=== PATIENT | male | born 1945 | race Caucasian/White ===

== ENCOUNTER 2018-02-20 19:01 | Emergency (ER) | payer MEDICARE, OTHER, SELFPAY ==
[2018-02-20 19:28] VITALS: BP 135/85; PULSE 61; RESP 16; TEMP 36.4; O2SAT 99
--- NOTE | 2018-02-20 20:09 | PC.NURSE ---
rt eye poked with stick while walking, lower rt FB that reports she tried to remove prior to arrival states it won't budge, globe intact, eye red/irritated
--- NOTE | 2018-02-20 20:24 | ED.EYEPROB ---
HPI - Eye Problem General Chief complaint: Eye Problems Stated complaint: FORIEGN OBJECT IN RIGHT EYE Time Seen by Provider: 02/20/18 20:02 Source: patient Mode of arrival: ambulatory Limitations: no limitations History of Present Illness HPI Narrative: Patient is a 72-year-old male here for evaluation of a foreign body in his right eye. Patient states that he was walking down the sidewalk wearing a pair glasses when he was poked in the left eye by a tree branch. Since then he has had pain and irritation that eye. He states that he can see a piece of the stick in his eye. He does wear glasses does not were contacts. No prior surgeries to his eyes. No prior chronic eye conditions such as glaucoma or cataracts. No other injuries reported. Related Data Previous Rx's Medication Instructions Recorded erythromycin 0.5 inch EYE-RIGHT Q6H #1 gram 02/20/18 Allergies Allergy/AdvReac Type Severity Reaction Status Date / Time No Known Drug Allergies Allergy Verified 02/20/18 19:33 Review of Systems Constitutional Denies fever(s) Eyes Reports blurry vision, Reports change in vision, Denies diplopia, Reports irritation, Reports itchy eyes, Reports eye pain, Reports requires corrective lenses and Denies photophobia Comments: Foreign body sensation all his eye symptoms are his right eye. Left eye he denies any symptoms. ENT Ears, Nose, Mouth, and Throat: Denies vertigo, Denies dizziness, Denies neck pain and Denies sore throat Musculoskeletal Denies neck pain Integumentary/Breasts Denies lesions and Denies rash Neurologic Denies vertigo and Denies dizziness Hematologic/Lymphatic Denies easy bleeding and Denies easy bruising Allergic/Immunologic Reports itchy eyes Exam Initial Vital Signs Initial Vital Signs: Vital Signs Temperature 97.5 F L 02/20/18 19:28 Pulse Rate 61 02/20/18 19:28 Respiratory Rate 16 02/20/18 19:28 Blood Pressure 135/85 H 02/20/18 19:28 Pulse Oximetry 99 02/20/18 19:28 Const General: cooperative, healthy appearing, comfortable, well developed, well groomed and No acute distress Orientation: alert, awake and oriented x3 HENMT Head: normal to inspection, normocephalic and atraumatic Ears: hearing grossly normal bilaterally Nose: external nose normal Face and sinus: normal facial exam Mouth: oral mucosae normal Eyes Alignment and Position: alignment normal Periorbital: periorbital findings normal Eyelids: eyelids normal Conjunctivae: conjunctival abnormality right ( Foreign body) Cornea: corneas normal Pupils: PERRL EOM: EOM intact bilaterally Other: patient with a obvious foreign body seen in the inferior temporal region of the right eye well outside the visual axis. Did have to pull down the lower eyelid in order to see this brown foreign body. Under the slit lamp patient had no hyphema in the anterior chamber. Pupils were round reactive. This foreign body seen in the lower eyelid was buried in the bulbar conjunctiva. Does not appear to be penetrating the globe. Skin Other: Skin surrounding the right eye is unremarkable Neuro General: alert, awake and oriented x3 Cognition: normal cognition Speech: speech normal Extrem General: normal to inspection Psych Appearance: grossly normal and well kempt Course Orders Ordered: Discontinued Medications Erythromycin (Erythromycin Ophth Oint) 1 applic EYE-RIGHT NOW ONE Stop: 02/20/18 21:42 Last Admin: 02/20/18 21:47 Dose: 1 applic Vital Signs - 8 hr 02/20/18 19:28 Temperature 97.5 F L Pulse Rate 61 Respiratory Rate 16 Blood Pressure 135/85 H Pulse Oximetry 99 MDM - Eye Problem MDM Narrative Medical decision making narrative: I discussed the case with Dr. Spence who was not on-call for our hospital but does cover [facility] in billing him and also [facility]. We do not have ophthalmology coverage here at our hospital. She was gracious enough to provide guidance with regard to the situation. Initially my culture her was for concern of a open globe secondary to the history and the size of the foreign body that was in the right eye. Upon further evaluation under the slit lamp this does not seem to be the case. He has a round pupil. Has no blood in the anterior chamber. The foreign body does appear to be fairly deep in the bulbar conjunctiva of the right eye and is too deep for simple extraction here in the emergency department. I did contact Dr. Spence back and ask for further guidance. She states that if the patient's pain was relatively controlled which it was that given my low concern for an open globe placing him on antibiotic ointment and having him follow up with her in her clinic tomorrow is not an unreasonable course of action. Had a discussion with the patient regarding his options which include being transferred to a tertiary care facility such as [facility] or [facility] following up tomorrow the patient did opt to follow up tomorrow. He was initially reluctant and stated that he wanted to call his eye provider tomorrow however I informed him that given the foreign body in his eye that this need to be addressed sooner rather than later and if he did not want to be transferred tonight that it was a my recommendation that he followed up with Dr. Spence tomorrow so that there was a scheduled follow-up appointment. He did expressed understanding with this and did agree to it. He was given Dr. Spence's contact information and office location and instructed to be there at 8 o'clock in the morning per her recommendations/request patient was given return precautions. He expressed understanding and agreement with plan. Discharge Plan Departure Patient Disposition: Home, Self-Care Clinical Impression: Foreign body of right eye Discharge Date/Time: 02/20/18 21:53 Interventions: ED Discharge Assessment Last Done: 02/20/18 21:53 Instructions: DI for Foreign Body in the Eye Activity Restrictions/Additional Instructions: you have a follow-up tomorrow with Dr. Spence at the [facility] in billing him tomorrow morning at 0800 hr. They are located at the [facility] located at [phone]. Their phone number is [phone] take the antibiotic ointment as directed. Keep this follow-up tomorrow. Return to the emergency department sooner for any new or worsening symptoms. Prescriptions: New erythromycin 5 mg/gram (0.5 %) ointment 0.5 inch EYE-RIGHT Q6H Qty: 1 RF: 0
[2018-02-20] MEDS: ERYTHROMYCIN OPHTH 1 GM OINT 1 APPLIC EYE-RIGHT (21:47)
== END 2018-02-20 21:53 | disposition home or self-care (01) ==
PROVIDERS: Emergency Provider Emergency Medicine
DX: T15.91XA Foreign body on external eye, part unspecified, right eye, initial encounter (principal)
CPT/HCPCS: 99283

== ENCOUNTER 2018-10-23 06:58 | Day surgery (SDC) | payer MEDICARE, OTHER, SELFPAY ==
[2018-10-23] MEDS: PROPARACAINE 0.5% OPHTH SOL 2 DROPS EYE-OP (07:23)
[2018-10-23 07:28] VITALS: BP 149/88; PULSE 62; RESP 16; TEMP 36.4; O2SAT 99; BMI 30.2
[2018-10-23] MEDS: CATARACT EYE COMPOUND (10 DROPS/SYRINGE) 3 DROPS EYE-OP (07:39)
--- NOTE | 2018-10-23 08:31 | PM.PREOP ---
Pre-operative Note Interval Note History & Physical reviewed/Exam performed by Physician: No Changes to H&P: No
--- NOTE | 2018-10-23 08:31 | PM.OP.1 ---
Operative Date/Time/Diagnoses Pre-op diagnosis: Nuclear cataract right eye Procedure & Clinicians Procedure: Cataract Surgery Same procedure as scheduled: Yes Surgeon: Edi Brewer Anesthesia Type: MAC +/- and Sedation Operative Notes Procedure in detail: Patient brought to the operating suite. Tetracaine drops placed in the right eye. Patient was prepped and draped in sterile manner. Wire lid speculum was placed in the eye. Betadine drops were placed on the eye. This was irrigated. Lidocaine jelly was placed on the eye. A paracentesis port was created with a side-port blade. 0.1 mL 1% preservative free lidocaine was injected into the anterior chamber. The anterior chamber was deepened with viscoelastic. 2.6 mm keratome was used to create a temporal clear corneal incision. Cystotome and Utrata forceps were used to create continuous tear capsulorrhexis. Balanced salt solution was used to hydro dissect the nucleus. The phacoemulsification handpiece was inserted and the nucleus was removed using the stop and chop technique. The irrigation aspiration handpiece was inserted and the remaining cortex was removed. Anterior chamber was deepened with viscoelastic. An Robles ZCB00 intraocular lens with a power of 21.5 was injected into the capsular bag. Irrigation aspiration handpiece was inserted and the remaining viscoelastic was removed. Incision was hydrated with balanced salt solution and found to be leak free with pressure with Weck-Moon sponges. 0.1 mL Vigamox injected anterior chamber. 0.3 mL Kenalog 10 mg was injected subconjunctivally. Lid speculum was removed. The patient left the operating room in excellent condition. Complications: none Condition: stable Disposition: same day surgery
--- NOTE | 2018-10-23 08:48 | SUR.OPER ---
Supine on eye stretcher, head on extension cradle secured with tape. Arms tucked at sides with blanket. Pillow under knees.
[2018-10-23] MEDS: CHONDROIDTIN/SOD HYALURONATE 1.05 ML SYRINGE INTRAOCULA (08:50)
[2018-10-23] MEDS: LIDOCAINE JELLY 2% 5 ML 1 APPLIC TOP (08:51)
[2018-10-23] MEDS: PHENYLEPHRINE/LIDOCAINE VIAL (OR) 0.2 ML EYE-OP (08:51)
[2018-10-23] MEDS: MOXIFLOXACIN OPHTH DROPS 3 ML BOTTLE 2 DROPS INJ (08:51)
[2018-10-23] MEDS: TETRACAINE 0.5% OPHTH DROPS 4 ML 2 DROPS EYE-OP (08:52)
[2018-10-23] MEDS: BALANCED SALT IRRIG SOLN NO.2 500 ML, EPINEPHrine 1 MG IRR (08:52)
[2018-10-23] MEDS: TRIAMCINOLONE 50 MG/5 ML VIAL INJ (08:52)
[2018-10-23 09:05] VITALS: BP 130/85; PULSE 55; RESP 16; TEMP 37; O2SAT 96
--- NOTE | 2018-10-23 09:14 | SUR.PHASEII ---
0909 Assume care, patient drowsy, drinking juice, denies pain.
== END 2018-10-23 09:17 | disposition home or self-care (01) ==
PROVIDERS: Visit Provider Ophthalmology
DX: H25.11 Age-related nuclear cataract, right eye (principal); G20 Parkinson's disease
CPT/HCPCS: J0171; J2250; J3010; J3301

== ENCOUNTER 2018-11-13 09:07 | Day surgery (SDC) | payer MEDICARE, OTHER, SELFPAY ==
[2018-11-13] MEDS: CATARACT EYE COMPOUND (10 DROPS/SYRINGE) 3 DROPS EYE-OP ×2 (09:40→10:29)
[2018-11-13] MEDS: PROPARACAINE 0.5% OPHTH SOL 2 DROPS EYE-OP (09:58)
[2018-11-13 10:00] VITALS: BP 129/80; PULSE 64; RESP 15; TEMP 36.6; O2SAT 97; BMI 29.5
--- NOTE | 2018-11-13 10:45 | PM.PREOP ---
Pre-operative Note Interval Note History & Physical reviewed/Exam performed by Physician: No Changes to H&P: No
--- NOTE | 2018-11-13 10:46 | PM.OP.1 ---
Operative Date/Time/Diagnoses Pre-op diagnosis: Nuclear Cataract Left eye Post-op diagnosis: same Procedure & Clinicians Surgeon: Edi Brewer Anesthesia Type: MAC +/- and Sedation Operative Notes Procedure in detail: Patient brought to the operating suite. Tetracaine drops placed in the left eye. Patient was prepped and draped in sterile manner. Wire lid speculum was placed in the eye. Betadine drops were placed on the eye. This was irrigated. Lidocaine jelly was placed on the eye. A paracentesis port was created with a side-port blade. 0.1 mL 1% preservative free lidocaine was injected into the anterior chamber. The anterior chamber was deepened with viscoelastic. 2.6 mm keratome was used to create a temporal clear corneal incision. Cystotome and Utrata forceps were used to create continuous tear capsulorrhexis. Balanced salt solution was used to hydro dissect the nucleus. The phacoemulsification handpiece was inserted and the nucleus was removed using the stop and chop technique. The irrigation aspiration handpiece was inserted and the remaining cortex was removed. Anterior chamber was deepened with viscoelastic. An Robles ZCB00 intraocular lens with a power of 22.5 was injected into the capsular bag. Irrigation aspiration handpiece was inserted and the remaining viscoelastic was removed. Incision was hydrated with balanced salt solution and found to be leak free with pressure with Weck-Moon sponges. 0.1 mL Vigamox injected anterior chamber. 0.3 mL Kenalog 10 mg was injected subconjunctivally. Lid speculum was removed. The patient left the operating room in excellent condition. Complications: none Condition: stable Disposition: same day surgery
[2018-11-13] MEDS: MOXIFLOXACIN OPHTH DROPS 3 ML BOTTLE 2 DROPS INJ (11:27)
[2018-11-13] MEDS: PHENYLEPHRINE/LIDOCAINE VIAL (OR) 0.2 ML EYE-OP (11:27)
[2018-11-13] MEDS: LIDOCAINE JELLY 2% 5 ML 1 APPLIC TOP (11:28)
[2018-11-13] MEDS: TRIAMCINOLONE 50 MG/5 ML VIAL INJ (11:28)
[2018-11-13] MEDS: CHONDROIDTIN/SOD HYALURONATE 1.05 ML SYRINGE INTRAOCULA (11:28)
[2018-11-13] MEDS: TETRACAINE 0.5% OPHTH DROPS 4 ML 2 DROPS EYE-OP (11:28)
[2018-11-13] MEDS: BALANCED SALT IRRIG SOLN NO.2 500 ML, EPINEPHrine 1 MG IRR (11:29)
[2018-11-13 11:43] VITALS: BP 129/87; PULSE 61; RESP 15; TEMP 36.6; O2SAT 99
[2018-11-13 11:54] VITALS: BP 104/68; PULSE 58; RESP 16; TEMP 36.4; O2SAT 97
== END 2018-11-13 12:06 ==
PROVIDERS: Visit Provider Ophthalmology
DX: H25.12 Age-related nuclear cataract, left eye (principal); G20 Parkinson's disease
CPT/HCPCS: J0171; J2250; J3010; J3301

== ENCOUNTER 2019-10-07 09:00 | Outpatient (RCR) | payer MEDICARE, OTHER, SELFPAY ==
--- NOTE | 2019-10-14 18:01 | ST.OPIE ---
Visit Care Team Role Provider Type Verito Sterling MD Primary Care Provider Non-Staff Specialty: Family Practice Address: [facility] [address] [place], [place], [address] Email: Rand Cabrera MD Attending Provider Non-Staff Referring Provider Specialty: Psychiatry Address: [address] [place] [address], [address], [place], [address] Email: Speech-Language Pathology Initial Evaluation IT NETWORK ENGINEER Voice Resonance Evaluation Start: 10/07/19 18:40 Freq: Status: Active Protocol: Document 10/07/19 18:40 HOMAR (Rec: 10/07/19 18:42 HOMAR [id number]) Voice and Resonance Assessment Session Time Visit Start Time 09:30 Visit Stop Time 10:25 Total Visit Minutes 55 Visit Information Visit Number Initial Evaluation Plan of Care Dates 10/07/19 - 01/07/20 Insurance Information Medicare Next Note Type Next Note Type Treatment Note Referral Referring Physician Dr. Rand Cabrera Reason for Referral Parkinson's Disease Setting Setting Outpatient Care Patient History General Information The pt is a 74-yr-old male who was diagnosed with Parkinson' s disease 5 yrs ago (2014). 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 The pt reports observing no significant effect of PD on speech and swallow ability; however, the pt's reported slowly progressing decrease of vocal loudness and occasional difficulty hearing and/or understanding what he is saying. The pt is scheduled to participate in LSVT-Big therapy in October and expressed interest in the LSVT-Loud program as well. Vision Vision Status Not Impaired Comments S/P cataract surgery [place] Langauge Language(s) Spoken in the Home [place] Educational Status Education Level Master's degree Occupational Status Occupation Status Retired Respiratory Therapist for [employer] Previous Therapy Previous Speech-Language Therapy No Subjective Subjective The pt arrived on time. His was present and participated with the pt in providing case history and education RE LSVT-Loud provided by the clinician. She left the treatment room during objective measurements. - Laryngeal Performance S/Z Ratio S/Z Ratio 0.9182 Functional for Speech Yes Voice Handicap Index Function Subtotal 1 Physical Subtotal 1 Emotional Subtotal 0 Total Score 2 Severity Mild (0-30) CAPE-V Overall Severity 16% (I) Roughness 13% (I) Breathiness WNL Strain 11% (I) Pitch 10% (I) Loudness 5% (I) Normal Resonance? Yes Additional Features Pitch Instability Other Features Observed Pitch breaks in glide exercises Maximum Phonation Time MPT Norms: Women (15-25) Men (25-35) Loudness (50-60 dB); Speaking Rate: Oral Reading of Sentences (190 Words Per Minute); Oral Reading of Paragraphs (160-170 WPM); Speaking Rate in Conversation (150-250 WPM) Maximum Phonation Time 10.3 Maximum Phonation Time Reduced,Unstable Loudness Jitter/Shimmer Norms: Jitter (Less than or equal to 1.040% - Frequency) Norms: Shimmer (Less than or equal to 3.810% - Amplitude) Jitter 0.32% (WNL) Shimmer 3.22% (WNL) Pitch [place] Pitch [place] Pitch Breaks,Tension Pitch [place] Comments 79-332 Hz Breath Support Speaks on Room Air Yes Voice Pitch Range Norms: Women (100-300 Hz) Men (70-250 Hz) Fundamental Frequency Norms: Women (Mean: 225 Hz; Range: 155-334 Hz) Men ( Mean: 128 Hz; Range: 85-196 Hz) Voice Pitch Normal Fundamental Frequency 82 Hz, low Paradoxical Vocal Fold Movement No Indications Findings Findings Mild Impairment Voice/Resonance Assessment Assessment Pt presents with minimal dysphonia characterized by inconsistent presence of roughness and strain, greater during structured tasks than spontaneous speech and reading tasks. He exhibits below normal maximum phonation time, resulting in occasionally reduced vocal loudness. This indicates reduced respiratory muscle strength necessary to produce adequate breath for voice and speech. In the presence of a progressive disease, it is anticipated that symptoms will worsen and result in significantly reduced ability for the pt to be effectively heard and/or understood. Given his current minimal amount of impairment, relatively early stage of disease progression, his professional experience and understanding of the medical and body systems, his cognitive strength and motivation, and his strong family support, participation in LSVT-Loud treatment is highly recommended for this pt in order to slow disease progression and equip the pt to be as communicatively independent for as long as possible. He is in agreement with this recommendation and will initiate LSVT-Loud treatment in October as he completes LSVT-Big therapy. Prognosis Rehabilitation Potential Excellent - Recommendations Treatment Recommended Yes Placement Recommendation Home Therapy Recommendations LSVT-Loud treatment Short Term Goals 1. The pt will sustain phonation for 15 seconds with avg loudness of 73 dB or greater across 3 trials to improve breath support for voice and speech. 2. The pt will produce pitch glides WNL of range and vocal quality and at avg loudness of 70 dB or greater to reduce risk of monotone voice frequently associated with Parkinson's disease. 3. The pt will read functional phrases/sentences with avg loudness of 70 dB x5 trials each across 3 sessions to increase self-monitoring skills and ability to communicate effectively in his functional living situation. 4. The pt will read sentences of moderate length with avg loudness of 70 dB across 3 sessions to increase/maintain adequate loudness levels for communication. Technical Support Associate Goals 1. The pt will produce spontaneous speech WNL across a variety of environments and communication partners, as measured by clinician judgement and pt/family reports. 2. The pt will produce voice quality WNL as measured by CAPE-V perceptual rating form. 3. The pt will demonstrate consistent home practice of LSVT-Loud exercises, as prescribed, to promote long- term carryover of results and maintain effective communication ability. IT NETWORK ENGINEER Follow Up Initiate LSVT-Loud treatment in October 2019 Patient/Caregiver Education Patient/Family Education Described results of evaluation,Patient Understanding
--- NOTE | 2020-05-20 09:24 | ST.OPDS ---
Visit Care Team Role Provider Type Verito Sterling MD Primary Care Provider Non-Staff Address: [address] [facility], [place], [address] Rand Cabrera MD Attending Provider Non-Staff Referring Provider Address: [address] [place] [address], [address], [place], [address] RV DETAILER Treatment Note RV DETAILER Treatment Note Start: 10/07/19 18:40 Freq: Status: Active Protocol: Document 05/20/20 09:22 HOMAR (Rec: 05/20/20 09:22 HOMAR [id number]) Speech Pathology Treatment Note Visit Information Plan of Care Dates 10/07/19 - 01/07/20 Insurance Information Medicare Setting Treatment Setting Outpatient Care Visit Type Note Type Discharge Summary General Information General Information The pt is a 74-yr-old male who was diagnosed with Parkinson' s disease 5 yrs ago (2014). 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 The pt reports observing no significant effect of PD on speech and swallow ability; however, the pt's reported slowly progressing decrease of vocal loudness and occasional difficulty hearing and/or understanding what he is saying. The pt is scheduled to participate in LSVT-Big therapy in October and expressed interest in the LSVT-Loud program as well. Subjective Observations/Patient Presentation The pt was last seen 10/07/19. Immediately following, this clinic was closed d/t COVID-19 pandemic. Upon reopening in November and then again more recently, the pt was contacted to see if he wished to return to therapy. He declined d/t pandemic concerns and is discharged from skilled intervention. Objective Short Term Goals GOALS NOT MET 1. The pt will sustain phonation for 15 seconds with avg loudness of 73 dB or greater across 3 trials to improve breath support for voice and speech. 2. The pt will produce pitch glides WNL of range and vocal quality and at avg loudness of 70 dB or greater to reduce risk of monotone voice frequently associated with Parkinson's disease. 3. The pt will read functional phrases/sentences with avg loudness of 70 dB x5 trials each across 3 sessions to increase self-monitoring skills and ability to communicate effectively in his functional living situation. 4. The pt will read sentences of moderate length with avg loudness of 70 dB across 3 sessions to increase/maintain adequate loudness levels for communication. Care Home Goals GOALS NOT MET 1. The pt will produce spontaneous speech WNL across a variety of environments and communication partners, as measured by clinician judgement and pt/family reports. 2. The pt will produce voice quality WNL as measured by CAPE-V perceptual rating form. 3. The pt will demonstrate consistent home practice of LSVT-Loud exercises, as prescribed, to promote long- term carryover of results and maintain effective communication ability. Plan Therapy Recommendations Discharge from Speech Therapy Reason for Discharge COVID-19 concerns
== END 2020-05-21 08:40 ==
LOC: SP 09:00
PROVIDERS: PCP Family Medicine; Referring Provider Electrodiagnostic Medicine; Visit Provider Electrodiagnostic Medicine
DX: G20 Parkinson's disease (principal)
CPT/HCPCS: 92520; 92524

== ENCOUNTER 2020-07-06 14:15 | Outpatient (RCR) | payer MEDICARE, OTHER, SELFPAY ==
--- NOTE | 2020-06-08 15:55 | PT.OIE ---
Current Diagnoses Parkinson's disease (06/08/20) Past Medical History (Last Updated 11/13/18 @ 10:12 by Keysha Mane RN) BPH (benign prostatic hyperplasia) (Acute) Constipation (Acute) Impaired vision (Acute) Parkinsons disease (Acute) Prostate cancer (Acute) Skin cancer (Acute) Visit Care Team Role Provider Type Verito Sterling MD Family Provider Non-Staff Primary Care Provider Specialty: Family Practice Address: [address] [place] [address], [place], [address] Email: Rand Cabrera MD Attending Provider Non-Staff Referring Provider Specialty: Psychiatry Address: [address] [place] [address], [address], [place], [address] Email: Physical Therapy Initial Evaluation PT-OP-A Visit Information Start: 06/05/20 15:25 Freq: Status: Active Protocol: Document 06/08/20 14:07 MB (Rec: 06/08/20 14:11 MB [id number]) Out-Patient Physical Therapy Visit Information Visit Information Visit Type Initial Evaluation Visit Note Medicare Visit Start Time 14:15 Visit Stop Time 15:40 Total Visit Minutes 85 Visit Number 1 Evaluation Information Evaluation Date 06/08/20 PT-OP-B Current Condition Start: 06/05/20 15:25 Freq: Status: Active Protocol: Document 06/08/20 14:07 MB (Rec: 06/08/20 14:11 [id number]) Current Condition History of Current Condition Onset Date Pt first experienced loss of smell 1998 Current Complaints Hypotension, slowness, gait changes History of Current Condition Pt arrives for assessment in preparation to initiate BIG PT course. Pt's initial symptoms of PD were loss of smell in 1998 and erectile dysfunction prior to that. He was diagnosed in 2013. He emotional lability right before his dx. He reports a minor tremor that occurs with fine motor finger movement. PMH includes BPH, non-agressive prostate CA and he takes medication. His current PD symptoms include gait disturbance, hypotension and dizziness. He has pain in the small of his back with hypotension. Pt currently takes Carbidopa- levodopa time release 3 caps four times a day and Rasagiline 1x/day for his PD. His medications help his mobility. Pt had a stroke December 04, 2019. He passed out and his heard him fall. He was unconscious and couldn't talk when he came to. He had a left sided facial droop. He was dx with right MCA infarct. He got TPA and was taken to [facility]. He was put on Eloquist and a statin. Pt underwent mitroclip 2019 for mitral prolapse. 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 Pt lives with his in [place]. He lives in a house. There are no stairs to enter the home. He has 2 steps in the house with 1 rail. He is a retired RT. Pt drives, helps with house cleaning, landscaping and repairs. He does not use AD. He likes to watch TV, RC sail boats, cars and gliders. Pt's current PD symptoms are gait and speed difficulties, hypotension, slowness. His goals are to get more stamina, stronger, better conditioning . Pt is wearing B thigh high compression hose. Pt describes his back discomfort is near his kidneys . Pt likes to walk his small dog on a leash about 20-30 minutes a day. His light- headedness is not dependent on time of day but is dependent on being up. Pt drinks 16 oz of coffee in the morning. He is drinking two alcoholic drinks a day: 1 beer and either 1/2 glass of wine or shot a day. He is drinking 4 8 oz glasses of water or 2 16- 17 oz of carbonated flavored water a day. PT-OP-C Subjective Start: 06/05/20 15:25 Freq: Status: Active Protocol: Document 06/08/20 14:07 MB (Rec: 06/08/20 14:17 MB [id number]) OP-PT Subjective Patient Comments Patient Comments See history of current condition PT-OP-D Balance Start: 06/05/20 15:25 Freq: Status: Active Protocol: Document 06/08/20 14:07 MB (Rec: 06/08/20 15:48 MB [id number]) Balance Tests Other Other Balance Tests Performed SLS deferred today d/t pt is orthostatic with moving to standing PT-OP-G Mobility & Gait Start: 06/05/20 15:25 Freq: Status: Active Protocol: Document 06/08/20 14:07 MB (Rec: 06/08/20 15:48 MB [id number]) OP Gait Assessment Gait Gait Assistance Required: Independent Distance (Feet) 75 Assistive Devices Assistive Device None Gait Deviations General Gait Pattern Decreased Feet Clearance Comments Gait Comments Pt presents with increased right greater than left knee flexion with weight acceptance with gait. His right LE appears functionally longer than the left with gait. He presents with right greater than left foot scuffing with gait and presents with overpronation right foot with gait. PT-OP-M Strength Start: 06/05/20 15:25 Freq: Status: Active Protocol: Document 06/08/20 14:07 MB (Rec: 06/08/20 15:48 MB [id number]) Shoulder Strength Shoulder Manual Muscle Testing B Flexion 5 Normal Abduction (C5) 5 Normal Elbow/Forearm Strength Elbow and Forearm Manual Muscle Testing B Flexion (C6) 5 Normal Extension (C7) 5 Normal Hip Strength Hip Manual Muscle Testing Left Flexion (L2) 5 Normal Abduction 5 Normal Right Flexion (L2) 4 Good Abduction 4 Good Knee Strength Knee Manual Muscle Testing Left Extension (L3) 5 Normal Right Extension (L3) 5 Normal Ankle/Foot Strength Ankle and Foot Manual Muscle Testing Left Dorsiflexion (L4) 5 Normal Right Dorsiflexion (L4) 5 Normal Toe Strength Toe Manual Muscle Testing Left Great Toe Extension 5 Normal Right Great Toe Extension 4 Good PT-OP-Q Treatments Start: 06/05/20 15:25 Freq: Status: Active Protocol: Document 06/08/20 14:07 MB (Rec: 06/08/20 15:48 MB [id number]) Therapeutic Exercises Sitting Exercises Sit to stands Comments 17 reps without UE in 30 sec Gait Training Gait Activity 6MWT Comments 1430 feeet in 6 minutes without AD and pt denies pain and light-headedness. See gait assessment comments above Self-Care/Home Management Treatment Education Other Education Education in homework--finding functional tasks that are challenging, BIG purpose and course, orthostatic hypotension and provided handouts, education about making fluids count (cup of water before coffee and alcoholic drinks) PT-OP-T Assessment and Plan Start: 06/05/20 15:25 Freq: Status: Active Protocol: Document 06/08/20 14:07 MB (Rec: 06/08/20 14:16 MB [id number]) Physical Therapy Assessment Rehab Potential Rehabilitation Potential Good Evaluation Complexity Number of Personal Factors/Comorbidities 1-2 Number of Body Systems Impaired 1-2 Clinical Presentation at Evaluation Evolving Impairments Impairments Activity Tolerance,Balance, Gait,Posture,ROM Other Impairments Fluctuating BP is a barrier to PT. Goals 5 Assisted Goal (LTG) Pt will perform B SLS for 30 sec to improve standing balance for putting on pants by 07/14/2020. LTG Duration 16 treatments 4 Teletype Installer Goal (LTG) Pt will perform 19 sit to stands in 30 sec without UE support to improve functional strength and transfers by . LTG Duration 16 treatments 3 Teletype Installer Goal (LTG) Pt will perform WNLs on FGA reflect improved balance by . LTG Duration 16 treatments 2 Teletype Installer Goal (LTG) Pt will perform BIG exercises and functional task exercises with I to improve amplitude of movement by 07/14/2020. LTG Duration 16 treatments 1 Assisted Goal (LTG) Pt will gait train at least 1600 feet in 6 minutes without AD in order to improve community ambulation by 2019. LTG Duration 16 treatments Assessment Summary Assessment Pt is a 74 y/o male presenting with 6 year dx of PD with symptoms greater than 20 years . He presents with right LE weakness, gait changes, orthostatic hypotension and decreased tolerance to balance testing today d/t dropping BP . Orthostasis may be a challenging with BIG treatment course but pt is very communicative and states he will tell PT if he needs to stop tasks. His BP and HR in right UE are: supine 163/102, 59; standing 133/82, 70; standing 1' 119/77, 70; standing 2' 116/69, 69. Pt states that he would like to work on swinging a golf club and balance. Will initiate BIG exercises next treatment date and incorporate functional tasks in future treatment dates. Physical Therapy Plan Frequency and Duration Frequency of Treatment 4x/Week Duration of Treatment 16 treatments Plan of Care Start Date 06/08/20 Plan of Care End Date 07/14/20 Therapeutic Interventions Therapeutic Interventions Balance Training,Canalithic Repositioning,Coordination Training,Gait Training,Home Exercise Program,Neuromuscular Re-education,Patient/ Caregiver Education,Self-Care/ Home Management,Therapeutic Activities,Therapeutic Exercises Modalities Cold Pack/Ice Massage,Hot Packs Next Visit Focus/Plan Next Note Type Treatment Note Next Visit Plan Initiate BIG exercises. Functional tasks to include swinging golf club and SLS for dressing.
--- NOTE | 2020-06-08 15:55 | PT.OPPOC ---
Physical, Occupational & Speech Therapy At [facility] Current Diagnoses Parkinson's disease (06/08/20) Visit Care Team Role Provider Type Verito Sterling MD Family Provider Non-Staff Primary Care Provider Specialty: Family Practice Address: [address] [place], [place], [address] Email: Rand Cabrera MD Attending Provider Non-Staff Referring Provider Specialty: Psychiatry Address: [address] [place] [address], [address], [place], [address] Email: Plan Of Care PT-OP-T Assessment and Plan Start: 06/05/20 15:25 Freq: Status: Active Protocol: Document 06/08/20 14:07 MB (Rec: 06/08/20 14:16 MB [id number]) Physical Therapy Assessment Rehab Potential Rehabilitation Potential Good Evaluation Complexity Number of Personal Factors/Comorbidities 1-2 Number of Body Systems Impaired 1-2 Clinical Presentation at Evaluation Evolving Impairments Impairments Activity Tolerance,Balance, Gait,Posture,ROM Other Impairments Fluctuating BP is a barrier to PT. Goals 5 Shark Biologist Goal (LTG) Pt will perform B SLS for 30 sec to improve standing balance for putting on pants by 07/14/2020. LTG Duration 16 treatments 4 Shark Biologist Goal (LTG) Pt will perform 19 sit to stands in 30 sec without UE support to improve functional strength and transfers by . LTG Duration 16 treatments 3 Detention Goal (LTG) Pt will perform WNLs on FGA reflect improved balance by . LTG Duration 16 treatments 2 Shark Biologist Goal (LTG) Pt will perform BIG exercises and functional task exercises with I to improve amplitude of movement by 07/14/2020. LTG Duration 16 treatments 1 Shark Biologist Goal (LTG) Pt will gait train at least 1600 feet in 6 minutes without AD in order to improve community ambulation by 2019. LTG Duration 16 treatments Assessment Summary Assessment Pt is a 74 y/o male presenting with 6 year dx of PD with symptoms greater than 20 years . He presents with right LE weakness, gait changes, orthostatic hypotension and decreased tolerance to balance testing today d/t dropping BP . Orthostasis may be a challenging with BIG treatment course but pt is very communicative and states he will tell PT if he needs to stop tasks. His BP and HR in right UE are: supine 163/102, 59; standing 133/82, 70; standing 1' 119/77, 70; standing 2' 116/69, 69. Pt states that he would like to work on swinging a golf club and balance. Will initiate BIG exercises next treatment date and incorporate functional tasks in future treatment dates. Physical Therapy Plan Frequency and Duration Frequency of Treatment 4x/Week Duration of Treatment 16 treatments Plan of Care Start Date 06/08/20 Plan of Care End Date 07/14/20 Therapeutic Interventions Therapeutic Interventions Balance Training,Canalithic Repositioning,Coordination Training,Gait Training,Home Exercise Program,Neuromuscular Re-education,Patient/ Caregiver Education,Self-Care/ Home Management,Therapeutic Activities,Therapeutic Exercises Modalities Cold Pack/Ice Massage,Hot Packs Next Visit Focus/Plan Next Note Type Treatment Note Next Visit Plan Initiate BIG exercises. Functional tasks to include swinging golf club and SLS for dressing. Plan of Care Dates Plan of Care Start Date 06/08/20 Plan of Care End Date 07/14/20 Electronically Signed by: Gloria Rodgers, PT 06/08/20 4421 Please Sign and Return: I have reviewed this Plan of Care and certify that the skilled therapy services above are required to meet the patient?s needs. Physician Signature Date Printed Name and Credentials Clinical Instructor Signature Printed Name and Credentials
--- NOTE | 2020-06-09 15:36 | PT.OTN ---
Current Diagnoses Parkinson's disease (06/09/20) Physical Therapy Treatment Note PT-OP-A Visit Information Start: 06/05/20 15:25 Freq: Status: Active Protocol: Document 06/09/20 14:17 MB (Rec: 06/09/20 15:36 MB [id number]) Out-Patient Physical Therapy Visit Information Visit Information Visit Type Treatment Note Visit Note Medicare Visit Start Time 14:17 Visit Stop Time 15:15 Total Visit Minutes 58 Visit Number 2 PT-OP-B Current Condition Start: 06/05/20 15:25 Freq: Status: Active Protocol: Document 06/08/20 14:07 MB (Rec: 06/08/20 14:11 MB [id number]) Current Condition History of Current Condition Onset Date Pt first experienced loss of smell 1998 Current Complaints Hypotension, slowness, gait changes History of Current Condition Pt arrives for assessment in preparation to initiate BIG PT course. Pt's initial symptoms of PD were loss of smell in 1998 and erectile dysfunction prior to that. He was diagnosed in 2013. He emotional lability right before his dx. He reports a minor tremor that occurs with fine motor finger movement. PMH includes BPH, non-agressive prostate CA and he takes medication. His current PD symptoms include gait disturbance, hypotension and dizziness. He has pain in the small of his back with hypotension. Pt currently takes Carbidopa- levodopa time release 3 caps four times a day and Rasagiline 1x/day for his PD. His medications help his mobility. Pt had a stroke December 04, 2019. He passed out and his heard him fall. He was unconscious and couldn't talk when he came to. He had a left sided facial droop. He was dx with right MCA infarct. He got TPA and was taken to [facility]. He was put on Eloquist and a statin. Pt underwent mitroclip 2019 for mitral prolapse. 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 Pt lives with his in [place]. He lives in a house. There are no stairs to enter the home. He has 2 steps in the house with 1 rail. He is a retired RT. Pt drives, helps with house cleaning, landscaping and repairs. He does not use AD. He likes to watch TV, RC sail boats, cars and gliders. Pt's current PD symptoms are gait and speed difficulties, hypotension, slowness. His goals are to get more stamina, stronger, better conditioning . Pt is wearing B thigh high compression hose. Pt describes his back discomfort is near his kidneys . Pt likes to walk his small dog on a leash about 20-30 minutes a day. His light- headedness is not dependent on time of day but is dependent on being up. Pt drinks 16 oz of coffee in the morning. He is drinking two alcoholic drinks a day: 1 beer and either 1/2 glass of wine or shot a day. He is drinking 4 8 oz glasses of water or 2 16- 17 oz of carbonated flavored water a day. PT-OP-C Subjective Start: 06/05/20 15:25 Freq: Status: Active Protocol: Document 06/09/20 14:17 MB (Rec: 06/09/20 15:36 MB [id number]) OP-PT Subjective Patient Comments Patient Comments I'm trying to look into getting a speed reader for golf swinging. PT-OP-D Balance Start: 06/05/20 15:25 Freq: Status: Active Protocol: Document 06/08/20 14:07 MB (Rec: 06/08/20 15:48 MB [id number]) Balance Tests Other Other Balance Tests Performed SLS deferred today d/t pt is orthostatic with moving to standing PT-OP-G Mobility & Gait Start: 06/05/20 15:25 Freq: Status: Active Protocol: Document 06/08/20 14:07 MB (Rec: 06/08/20 15:48 MB [id number]) OP Gait Assessment Gait Gait Assistance Required: Independent Distance (Feet) 75 Assistive Devices Assistive Device None Gait Deviations General Gait Pattern Decreased Feet Clearance Comments Gait Comments Pt presents with increased right greater than left knee flexion with weight acceptance with gait. His right LE appears functionally longer than the left with gait. He presents with right greater than left foot scuffing with gait and presents with overpronation right foot with gait. PT-OP-M Strength Start: 06/05/20 15:25 Freq: Status: Active Protocol: Document 06/08/20 14:07 MB (Rec: 06/08/20 15:48 MB [id number]) Shoulder Strength Shoulder Manual Muscle Testing B Flexion 5 Normal Abduction (C5) 5 Normal Elbow/Forearm Strength Elbow and Forearm Manual Muscle Testing B Flexion (C6) 5 Normal Extension (C7) 5 Normal Hip Strength Hip Manual Muscle Testing Left Flexion (L2) 5 Normal Abduction 5 Normal Right Flexion (L2) 4 Good Abduction 4 Good Knee Strength Knee Manual Muscle Testing Left Extension (L3) 5 Normal Right Extension (L3) 5 Normal Ankle/Foot Strength Ankle and Foot Manual Muscle Testing Left Dorsiflexion (L4) 5 Normal Right Dorsiflexion (L4) 5 Normal Toe Strength Toe Manual Muscle Testing Left Great Toe Extension 5 Normal Right Great Toe Extension 4 Good PT-OP-Q Treatments Start: 06/05/20 15:25 Freq: Status: Active Protocol: Document 06/09/20 14:17 MB (Rec: 06/09/20 15:36 MB [id number]) Therapeutic Exercises Sitting Exercises Side to side Equipment Used Blue chair in gym, tried blue cushion; black mat Reps/Minutes 5 reps Comments Cues for form and demo; pt has trouble keeping hip down in chair, mat jevon Floor to ceiling Resistance Blue chair in gym Reps/Minutes 5 reps Comments Cues for form and demo BIG sit to stands Equipment Used Black mat in gym Reps/Minutes 5 reps Comments Cues for form and demo Standing Exercises Sideways rock and reach Side bilateral Reps/Minutes 10 reps Comments Multiple cues and demo for pivot on foot, start hands down and follow arms Forward rock and reach Side bilateral Reps/Minutes 10 reps Comments Cues for form, pt tends to keep arms loose with swing Side step Side bilateral Reps/Minutes 5 reps Comments Cues for foot placement and to follow hands with head Backward step Side bilateral Reps/Minutes 10 reps Comments Cues for BIG hands, front toe up, finish hands forward Forward step Side bilateral Reps/Minutes 10 reps Comments Cues and demo, most cues for BIG step: pt tends to correct foot before retu PT-OP-T Assessment and Plan Start: 06/05/20 15:25 Freq: Status: Active Protocol: Document 06/09/20 14:17 MB (Rec: 06/09/20 15:36 MB [id number]) Physical Therapy Assessment Rehab Potential Rehabilitation Potential Good Evaluation Complexity Number of Personal Factors/Comorbidities 1-2 Number of Body Systems Impaired 1-2 Clinical Presentation at Evaluation Evolving Impairments Impairments Activity Tolerance,Balance, Gait,Posture,ROM Other Impairments Fluctuating BP is a barrier to PT. Goals 5 Residential Goal (LTG) Pt will perform B SLS for 30 sec to improve standing balance for putting on pants by 07/14/2020. LTG Duration 16 treatments 4 Residential Goal (LTG) Pt will perform 19 sit to stands in 30 sec without UE support to improve functional strength and transfers by . LTG Duration 16 treatments 3 Veterinary Assistant Goal (LTG) Pt will perform WNLs on FGA reflect improved balance by . LTG Duration 16 treatments 2 Veterinary Assistant Goal (LTG) Pt will perform BIG exercises and functional task exercises with I to improve amplitude of movement by 07/14/2020. LTG Duration 16 treatments 1 Veterinary Assistant Goal (LTG) Pt will gait train at least 1600 feet in 6 minutes without AD in order to improve community ambulation by 2019. LTG Duration 16 treatments Assessment Summary Assessment Pt does not remember functional task form but when PT asks him about functional tasks, he would like to work on golf swing, buttoning, opening jars and standing on one leg. First day of BIG exercises and pt does very well with most trouble with backward stepping and sideways rock and reach. PT lends pt homework helper DVD and pt to watch before performing home exercises tomorrow. He will consider getting a copy of the DVD. He will also bring in shirt to work on buttoning. Physical Therapy Plan Frequency and Duration Frequency of Treatment 4x/Week Duration of Treatment 16 treatments Plan of Care Start Date 06/08/20 Plan of Care End Date 07/14/20 Therapeutic Interventions Therapeutic Interventions Balance Training,Canalithic Repositioning,Coordination Training,Gait Training,Home Exercise Program,Neuromuscular Re-education,Patient/ Caregiver Education,Self-Care/ Home Management,Therapeutic Activities,Therapeutic Exercises Modalities Cold Pack/Ice Massage,Hot Packs Next Visit Focus/Plan Next Note Type Treatment Note Next Visit Plan Con't BIG exercises and progress with weight, flicks and alternating soon. Functional tasks to include swinging golf club, buttoning clothes and opening jars, and SLS for dressing.
--- NOTE | 2020-06-10 15:59 | PT.OTN ---
Current Diagnoses Parkinson's disease (06/10/20) Physical Therapy Treatment Note PT-OP-A Visit Information Start: 06/05/20 15:25 Freq: Status: Active Protocol: Document 06/10/20 15:41 AW (Rec: 06/10/20 15:59 AW [email or web address]) Out-Patient Physical Therapy Visit Information Visit Information Visit Type Treatment Note Visit Note Medicare Visit Start Time 14:15 Visit Stop Time 15:15 Total Visit Minutes 60 Visit Number 10/14 Evaluation Information Evaluation Date 06/08/20 PT-OP-B Current Condition Start: 06/05/20 15:25 Freq: Status: Active Protocol: Document 06/08/20 14:07 MB (Rec: 06/08/20 14:11 MB [id number]) Current Condition History of Current Condition Onset Date Pt first experienced loss of smell 1998 Current Complaints Hypotension, slowness, gait changes History of Current Condition Pt arrives for assessment in preparation to initiate BIG PT course. Pt's initial symptoms of PD were loss of smell in 1998 and erectile dysfunction prior to that. He was diagnosed in 2013. He emotional lability right before his dx. He reports a minor tremor that occurs with fine motor finger movement. PMH includes BPH, non-agressive prostate CA and he takes medication. His current PD symptoms include gait disturbance, hypotension and dizziness. He has pain in the small of his back with hypotension. Pt currently takes Carbidopa- levodopa time release 3 caps four times a day and Rasagiline 1x/day for his PD. His medications help his mobility. Pt had a stroke December 04, 2019. He passed out and his heard him fall. He was unconscious and couldn't talk when he came to. He had a left sided facial droop. He was dx with right MCA infarct. He got TPA and was taken to [facility]. He was put on Eloquist and a statin. Pt underwent mitroclip 2019 for mitral prolapse. 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 Pt lives with his in [place]. He lives in a house. There are no stairs to enter the home. He has 2 steps in the house with 1 rail. He is a retired RT. Pt drives, helps with house cleaning, landscaping and repairs. He does not use AD. He likes to watch TV, RC sail boats, cars and gliders. Pt's current PD symptoms are gait and speed difficulties, hypotension, slowness. His goals are to get more stamina, stronger, better conditioning . Pt is wearing B thigh high compression hose. Pt describes his back discomfort is near his kidneys . Pt likes to walk his small dog on a leash about 20-30 minutes a day. His light- headedness is not dependent on time of day but is dependent on being up. Pt drinks 16 oz of coffee in the morning. He is drinking two alcoholic drinks a day: 1 beer and either 1/2 glass of wine or shot a day. He is drinking 4 8 oz glasses of water or 2 16- 17 oz of carbonated flavored water a day. PT-OP-C Subjective Start: 06/05/20 15:25 Freq: Status: Active Protocol: Document 06/10/20 15:41 AW (Rec: 06/10/20 15:59 AW [id number]) OP-PT Subjective Patient Comments Patient Comments I did my exercises at home this morning. PT-OP-D Balance Start: 06/05/20 15:25 Freq: Status: Active Protocol: Document 06/08/20 14:07 MB (Rec: 06/08/20 15:48 MB [id number]) Balance Tests Other Other Balance Tests Performed SLS deferred today d/t pt is orthostatic with moving to standing PT-OP-G Mobility & Gait Start: 06/05/20 15:25 Freq: Status: Active Protocol: Document 06/08/20 14:07 MB (Rec: 06/08/20 15:48 MB [id number]) OP Gait Assessment Gait Gait Assistance Required: Independent Distance (Feet) 75 Assistive Devices Assistive Device None Gait Deviations General Gait Pattern Decreased Feet Clearance Comments Gait Comments Pt presents with increased right greater than left knee flexion with weight acceptance with gait. His right LE appears functionally longer than the left with gait. He presents with right greater than left foot scuffing with gait and presents with overpronation right foot with gait. PT-OP-M Strength Start: 06/05/20 15:25 Freq: Status: Active Protocol: Document 06/08/20 14:07 MB (Rec: 06/08/20 15:48 MB [id number]) Shoulder Strength Shoulder Manual Muscle Testing B Flexion 5 Normal Abduction (C5) 5 Normal Elbow/Forearm Strength Elbow and Forearm Manual Muscle Testing B Flexion (C6) 5 Normal Extension (C7) 5 Normal Hip Strength Hip Manual Muscle Testing Left Flexion (L2) 5 Normal Abduction 5 Normal Right Flexion (L2) 4 Good Abduction 4 Good Knee Strength Knee Manual Muscle Testing Left Extension (L3) 5 Normal Right Extension (L3) 5 Normal Ankle/Foot Strength Ankle and Foot Manual Muscle Testing Left Dorsiflexion (L4) 5 Normal Right Dorsiflexion (L4) 5 Normal Toe Strength Toe Manual Muscle Testing Left Great Toe Extension 5 Normal Right Great Toe Extension 4 Good PT-OP-Q Treatments Start: 06/05/20 15:25 Freq: Status: Active Protocol: Document 06/10/20 15:41 AW (Rec: 06/10/20 15:59 AW [id number]) Therapeutic Exercises Sitting Exercises Side to side Side bilateral Equipment Used Blue chair in gym Reps/Minutes 8 reps Comments cues for posture in side position; pt reports low back pain w/ R rotation Floor to ceiling Resistance Blue chair in gym Reps/Minutes 8 reps Comments cues for increased effort, crisp movement BIG sit to stands Equipment Used blue chair with 2 foam Reps/Minutes 5 reps x 2 Comments cues for bigger forward lean on ascent and descent Standing Exercises Sideways rock and reach Side bilateral Reps/Minutes 10 reps Comments cues to look over shoulder Forward rock and reach Side bilateral Reps/Minutes 10 reps Comments cues for bigger forward and backward reach Side step Side bilateral Reps/Minutes 10 reps Comments Cues for foot placement and to follow hands with head Backward step Side bilateral Reps/Minutes 10 reps Comments cues for increased weight shift Forward step Side bilateral Reps/Minutes 10 reps Comments cues for bigger foot clearance Therapeutic Activity Therapeutic Activity buttoning Name buttoning Reps/Minutes 5 min Comments Practiced buttoning with shirt on pt's lap. Cued for hand flicks and BIG manager content at all times with improved performance from 13 seconds to 6 seconds per button Gait Training Gait Activity BIG walking Level of Assistance SBA Surface stairs, tile, carpet Distance/Duration 10 min Treatment Focus Think BIG Comments Demonstrated BIG gait with exaggerated arm swing, hip flexion, and foot clearance. Pt able to reproduce with good effect. PT-OP-T Assessment and Plan Start: 06/05/20 15:25 Freq: Status: Active Protocol: Document 06/10/20 15:41 AW (Rec: 06/10/20 15:59 AW [email or web address]) Physical Therapy Assessment Rehab Potential Rehabilitation Potential Good Impairments Impairments Activity Tolerance,Balance, Gait,Posture,ROM Other Impairments Fluctuating BP is a barrier to PT. Goals 5 Planning Engineer Goal (LTG) Pt will perform B SLS for 30 sec to improve standing balance for putting on pants by 07/14/2020. LTG Duration 16 treatments 4 Planning Engineer Goal (LTG) Pt will perform 19 sit to stands in 30 sec without UE support to improve functional strength and transfers by . LTG Duration 16 treatments 3 Halfway Goal (LTG) Pt will perform WNLs on FGA reflect improved balance by . LTG Duration 16 treatments 2 Planning Engineer Goal (LTG) Pt will perform BIG exercises and functional task exercises with I to improve amplitude of movement by 07/14/2020. LTG Duration 16 treatments 1 Halfway Goal (LTG) Pt will gait train at least 1600 feet in 6 minutes without AD in order to improve community ambulation by 2019. LTG Duration 16 treatments Assessment Summary Assessment Ernie tolerated increase in repetition today and responded favorably to education on basis for amplitude training. He is having some back pain with seated rotation movements but pain does not interfere with performance. Will continue to monitor. Physical Therapy Plan Frequency and Duration Frequency of Treatment 4x/Week Duration of Treatment 16 treatments Plan of Care Start Date 06/08/20 Plan of Care End Date 07/14/20 Therapeutic Interventions Therapeutic Interventions Balance Training,Canalithic Repositioning,Coordination Training,Gait Training,Home Exercise Program,Neuromuscular Re-education,Patient/ Caregiver Education,Self-Care/ Home Management,Therapeutic Activities,Therapeutic Exercises Modalities Cold Pack/Ice Massage,Hot Packs Next Visit Focus/Plan Next Note Type Treatment Note Next Visit Plan Con't BIG exercises and progress with weight, flicks and alternating soon. Functional tasks to include swinging golf club, buttoning clothes and opening jars, and SLS for dressing.
--- NOTE | 2020-06-11 15:51 | PT.OTN ---
Current Diagnoses Parkinson's disease (06/11/20) Physical Therapy Treatment Note PT-OP-A Visit Information Start: 06/05/20 15:25 Freq: Status: Active Protocol: Document 06/11/20 14:17 MB (Rec: 06/11/20 15:50 MB [id number]) Out-Patient Physical Therapy Visit Information Visit Information Visit Type Treatment Note Visit Note Medicare Visit Start Time 14:17 Visit Stop Time 15:22 Total Visit Minutes 65 Visit Number 11/14 PT-OP-B Current Condition Start: 06/05/20 15:25 Freq: Status: Active Protocol: Document 06/08/20 14:07 MB (Rec: 06/08/20 14:11 MB [id number]) Current Condition History of Current Condition Onset Date Pt first experienced loss of smell 1998 Current Complaints Hypotension, slowness, gait changes History of Current Condition Pt arrives for assessment in preparation to initiate BIG PT course. Pt's initial symptoms of PD were loss of smell in 1998 and erectile dysfunction prior to that. He was diagnosed in 2013. He emotional lability right before his dx. He reports a minor tremor that occurs with fine motor finger movement. PMH includes BPH, non-agressive prostate CA and he takes medication. His current PD symptoms include gait disturbance, hypotension and dizziness. He has pain in the small of his back with hypotension. Pt currently takes Carbidopa- levodopa time release 3 caps four times a day and Rasagiline 1x/day for his PD. His medications help his mobility. Pt had a stroke December 04, 2019. He passed out and his heard him fall. He was unconscious and couldn't talk when he came to. He had a left sided facial droop. He was dx with right MCA infarct. He got TPA and was taken to [facility]. He was put on Eloquist and a statin. Pt underwent mitroclip 2019 for mitral prolapse. 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 Pt lives with his in [place]. He lives in a house. There are no stairs to enter the home. He has 2 steps in the house with 1 rail. He is a retired RT. Pt drives, helps with house cleaning, landscaping and repairs. He does not use AD. He likes to watch TV, RC sail boats, cars and gliders. Pt's current PD symptoms are gait and speed difficulties, hypotension, slowness. His goals are to get more stamina, stronger, better conditioning . Pt is wearing B thigh high compression hose. Pt describes his back discomfort is near his kidneys . Pt likes to walk his small dog on a leash about 20-30 minutes a day. His light- headedness is not dependent on time of day but is dependent on being up. Pt drinks 16 oz of coffee in the morning. He is drinking two alcoholic drinks a day: 1 beer and either 1/2 glass of wine or shot a day. He is drinking 4 8 oz glasses of water or 2 16- 17 oz of carbonated flavored water a day. PT-OP-C Subjective Start: 06/05/20 15:25 Freq: Status: Active Protocol: Document 06/11/20 14:17 MB (Rec: 06/11/20 15:50 MB [id number]) OP-PT Subjective Patient Comments Patient Comments I'm not having the dizziness. PT-OP-D Balance Start: 06/05/20 15:25 Freq: Status: Active Protocol: Document 06/08/20 14:07 MB (Rec: 06/08/20 15:48 MB [id number]) Balance Tests Other Other Balance Tests Performed SLS deferred today d/t pt is orthostatic with moving to standing PT-OP-G Mobility & Gait Start: 06/05/20 15:25 Freq: Status: Active Protocol: Document 06/08/20 14:07 MB (Rec: 06/08/20 15:48 MB [id number]) OP Gait Assessment Gait Gait Assistance Required: Independent Distance (Feet) 75 Assistive Devices Assistive Device None Gait Deviations General Gait Pattern Decreased Feet Clearance Comments Gait Comments Pt presents with increased right greater than left knee flexion with weight acceptance with gait. His right LE appears functionally longer than the left with gait. He presents with right greater than left foot scuffing with gait and presents with overpronation right foot with gait. PT-OP-M Strength Start: 06/05/20 15:25 Freq: Status: Active Protocol: Document 06/08/20 14:07 MB (Rec: 06/08/20 15:48 MB [id number]) Shoulder Strength Shoulder Manual Muscle Testing B Flexion 5 Normal Abduction (C5) 5 Normal Elbow/Forearm Strength Elbow and Forearm Manual Muscle Testing B Flexion (C6) 5 Normal Extension (C7) 5 Normal Hip Strength Hip Manual Muscle Testing Left Flexion (L2) 5 Normal Abduction 5 Normal Right Flexion (L2) 4 Good Abduction 4 Good Knee Strength Knee Manual Muscle Testing Left Extension (L3) 5 Normal Right Extension (L3) 5 Normal Ankle/Foot Strength Ankle and Foot Manual Muscle Testing Left Dorsiflexion (L4) 5 Normal Right Dorsiflexion (L4) 5 Normal Toe Strength Toe Manual Muscle Testing Left Great Toe Extension 5 Normal Right Great Toe Extension 4 Good PT-OP-Q Treatments Start: 06/05/20 15:25 Freq: Status: Active Protocol: Document 06/11/20 14:17 MB (Rec: 06/11/20 15:50 MB [id number]) Therapeutic Exercises Sitting Exercises Side to side Side bilateral Resistance 1 lb wrist weights Equipment Used Gym table in room, raised Reps/Minutes 10 reps Comments Cues for BIG legs Floor to ceiling Side right Resistance 1 lb wrist weights Equipment Used Gym table in room, raised Reps/Minutes 5 reps BIG sit to stands Resistance 1 lb wrist weights Equipment Used Gym table in room, raised Reps/Minutes 10 Comments Cues to not reach down but rather, reach forward to unweight hips Standing Exercises Sideways rock and reach Side bilateral Reps/Minutes 5 reps Comments Cues to start with hands on thighs, pivot on foot and then bring arms along Forward rock and reach Side bilateral Resistance 1 lb wrist weights Reps/Minutes 10x2 Comments Cues for BIG stance Side step Side bilateral Resistance 1 lb wrist weights Reps/Minutes 10 reps Comments Alternating. Cues for BIG hands and to look where going Backward step Side bilateral Resistance 1 lb wrist weights Reps/Minutes 5 reps Comments Cues for step and recovery Forward step Side bilateral Resistance 1 lb wrist weights Reps/Minutes 10 reps Comments Alternating, cues for recovery to check stance Therapeutic Activity Therapeutic Activity Opening small glass jar Reps/Minutes 3 minutes Comments Educated pt in how to perform with BIG movements and to try this at jael. Jar is not air sealed and so is not difficult enough to practice here. Brake Coupler Dinkey strength today standing with arms in front, Right 80 lb, 70 lb, 70 lb; left 72 lb, 71 lb, 69 lb. buttoning Name buttoning Reps/Minutes 5 min Comments Pt standing and donning and doffing shirt. 4 trials total and ed to perform movements BIG and he reduced donning time with buttoning of front buttons from 30 sec to 21 sec to 18 sec and doffing from 13 sec to 10 sec to 9 sec Gait Training Gait Activity BIG walking Surface stairs, tile, carpet Distance/Duration 10 min Treatment Focus Think BIG Comments Pt tends to forget BIG hands, arm swing and step with talking and so re-cued. Decreased foot clearance x1 ascend and x1 descend, no rail on stairs. 1 lb weight around ankles. PT-OP-T Assessment and Plan Start: 06/05/20 15:25 Freq: Status: Active Protocol: Document 06/11/20 14:17 MB (Rec: 06/11/20 15:50 MB [id number]) Physical Therapy Assessment Rehab Potential Rehabilitation Potential Good Evaluation Complexity Number of Personal Factors/Comorbidities 1-2 Number of Body Systems Impaired 1-2 Clinical Presentation at Evaluation Evolving Impairments Impairments Activity Tolerance,Balance, Gait,Posture,ROM Other Impairments Fluctuating BP is a barrier to PT. Goals 5 Daycare Worker Goal (LTG) Pt will perform B SLS for 30 sec to improve standing balance for putting on pants by 07/14/2020. LTG Duration 16 treatments 4 Daycare Worker Goal (LTG) Pt will perform 19 sit to stands in 30 sec without UE support to improve functional strength and transfers by . LTG Duration 16 treatments 3 Daycare Worker Goal (LTG) Pt will perform WNLs on FGA reflect improved balance by . LTG Duration 16 treatments 2 Longterm Goal (LTG) Pt will perform BIG exercises and functional task exercises with I to improve amplitude of movement by 07/14/2020. LTG Duration 16 treatments 1 Daycare Worker Goal (LTG) Pt will gait train at least 1600 feet in 6 minutes without AD in order to improve community ambulation by 2019. LTG Duration 16 treatments Assessment Summary Assessment Progressed BIG exercises with wrist weights today and alternating some exercises. Thoracic discomfort on the right with left sideways rock and weights doffed and ed to lead with foot pivot and not to throw arms out. Added ankle weights to walking. Con't to progress exercises and balance challenges with gait. Physical Therapy Plan Frequency and Duration Frequency of Treatment 4x/Week Duration of Treatment 16 treatments Plan of Care Start Date 06/08/20 Plan of Care End Date 07/14/20 Therapeutic Interventions Therapeutic Interventions Balance Training,Canalithic Repositioning,Coordination Training,Gait Training,Home Exercise Program,Neuromuscular Re-education,Patient/ Caregiver Education,Self-Care/ Home Management,Therapeutic Activities,Therapeutic Exercises Modalities Cold Pack/Ice Massage,Hot Packs Next Visit Focus/Plan Next Note Type Treatment Note Next Visit Plan Con't BIG exercises and progress with weight, flicks, squeezing hand and finger mechanism. Functional tasks to include swinging golf club, buttoning clothes and SLS for dressing.
--- NOTE | 2020-06-12 15:41 | PT.OTN ---
Current Diagnoses Parkinson's disease (06/12/20) Physical Therapy Treatment Note PT-OP-A Visit Information Start: 06/05/20 15:25 Freq: Status: Active Protocol: Document 06/12/20 14:16 MB (Rec: 06/12/20 15:41 MB [id number]) Out-Patient Physical Therapy Visit Information Visit Information Visit Type Treatment Note Visit Note Medicare Visit Start Time 14:16 Visit Stop Time 15:16 Total Visit Minutes 60 Visit Number 12/14 PT-OP-B Current Condition Start: 06/05/20 15:25 Freq: Status: Active Protocol: Document 06/08/20 14:07 MB (Rec: 06/08/20 14:11 MB [id number]) Current Condition History of Current Condition Onset Date Pt first experienced loss of smell 1998 Current Complaints Hypotension, slowness, gait changes History of Current Condition Pt arrives for assessment in preparation to initiate BIG PT course. Pt's initial symptoms of PD were loss of smell in 1998 and erectile dysfunction prior to that. He was diagnosed in 2013. He emotional lability right before his dx. He reports a minor tremor that occurs with fine motor finger movement. PMH includes BPH, non-agressive prostate CA and he takes medication. His current PD symptoms include gait disturbance, hypotension and dizziness. He has pain in the small of his back with hypotension. Pt currently takes Carbidopa- levodopa time release 3 caps four times a day and Rasagiline 1x/day for his PD. His medications help his mobility. Pt had a stroke December 04, 2019. He passed out and his heard him fall. He was unconscious and couldn't talk when he came to. He had a left sided facial droop. He was dx with right MCA infarct. He got TPA and was taken to [place]. He was put on Eloquist and a statin. Pt underwent mitroclip 2019 for mitral prolapse. 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 Pt lives with his in [place]. He lives in a house. There are no stairs to enter the home. He has 2 steps in the house with 1 rail. He is a retired RT. Pt drives, helps with house cleaning, landscaping and repairs. He does not use AD. He likes to watch TV, [place] sail boats, cars and gliders. Pt's current PD symptoms are gait and speed difficulties, hypotension, slowness. His goals are to get more stamina, stronger, better conditioning . Pt is wearing B thigh high compression hose. Pt describes his back discomfort is near his kidneys . Pt likes to walk his small dog on a leash about 20-30 minutes a day. His light- headedness is not dependent on time of day but is dependent on being up. Pt drinks 16 oz of coffee in the morning. He is drinking two alcoholic drinks a day: 1 beer and either 1/2 glass of wine or shot a day. He is drinking 4 8 oz glasses of water or 2 16- 17 oz of carbonated flavored water a day. PT-OP-C Subjective Start: 06/05/20 15:25 Freq: Status: Active Protocol: Document 06/12/20 14:16 MB (Rec: 06/12/20 15:41 MB [id number]) OP-PT Subjective Patient Comments Patient Comments I have two things to tell you . These are good news. Today is the first day I broke 199 lb. Also, my Apple watch alerted that I made all fitness goals yesterday! Pt states that he was tired after PT yesterday. PT-OP-D Balance Start: 06/05/20 15:25 Freq: Status: Active Protocol: Document 06/08/20 14:07 MB (Rec: 06/08/20 15:48 MB [id number]) Balance Tests Other Other Balance Tests Performed SLS deferred today d/t pt is orthostatic with moving to standing PT-OP-G Mobility & Gait Start: 06/05/20 15:25 Freq: Status: Active Protocol: Document 06/08/20 14:07 MB (Rec: 06/08/20 15:48 MB [id number]) OP Gait Assessment Gait Gait Assistance Required: Independent Distance (Feet) 75 Assistive Devices Assistive Device None Gait Deviations General Gait Pattern Decreased Feet Clearance Comments Gait Comments Pt presents with increased right greater than left knee flexion with weight acceptance with gait. His right LE appears functionally longer than the left with gait. He presents with right greater than left foot scuffing with gait and presents with overpronation right foot with gait. PT-OP-M Strength Start: 06/05/20 15:25 Freq: Status: Active Protocol: Document 06/08/20 14:07 MB (Rec: 06/08/20 15:48 MB [id number]) Shoulder Strength Shoulder Manual Muscle Testing B Flexion 5 Normal Abduction (C5) 5 Normal Elbow/Forearm Strength Elbow and Forearm Manual Muscle Testing B Flexion (C6) 5 Normal Extension (C7) 5 Normal Hip Strength Hip Manual Muscle Testing Left Flexion (L2) 5 Normal Abduction 5 Normal Right Flexion (L2) 4 Good Abduction 4 Good Knee Strength Knee Manual Muscle Testing Left Extension (L3) 5 Normal Right Extension (L3) 5 Normal Ankle/Foot Strength Ankle and Foot Manual Muscle Testing Left Dorsiflexion (L4) 5 Normal Right Dorsiflexion (L4) 5 Normal Toe Strength Toe Manual Muscle Testing Left Great Toe Extension 5 Normal Right Great Toe Extension 4 Good PT-OP-Q Treatments Start: 06/05/20 15:25 Freq: Status: Active Protocol: Document 06/12/20 14:16 MB (Rec: 06/12/20 15:41 MB [id number]) Therapeutic Exercises Sitting Exercises Side to side Side bilateral Resistance 1 lb ankle weights Equipment Used Gym table in room, raised Reps/Minutes 6 reps Comments Cues for BIG legs, flicks Floor to ceiling Resistance 1 lb ankle weights Equipment Used Gym table in room, raised Reps/Minutes 5 reps Comments Flicks BIG sit to stands Resistance 1 lb ankle weights Equipment Used Gym table in room, raised Reps/Minutes 10 Standing Exercises Sideways rock and reach Side bilateral Resistance 1 lb ankle weights Reps/Minutes 5 reps Comments Cues to start with hands on thighs, pivot on foot and then bring arms along Forward rock and reach Side bilateral Resistance 1 lb ankle weights Reps/Minutes 10 Comments Cues for BIG stance Side step Side bilateral Resistance 1 lb ankle weights Reps/Minutes 6 reps Comments Alternating, one flick Backward step Side bilateral Resistance 1 lb ankle weights Reps/Minutes 5 reps Comments Cues for positioning Forward step Side bilateral Resistance 1 lb ankle weights Reps/Minutes 10 reps Comments Alternating, flicks Gait Training Gait Activity BIG walking Description 1 lb ankle weights Surface stairs, tile, carpet Distance/Duration 23 min Treatment Focus Clear feet, stair trials x3 Comments Pt requires rest break senior living through gait. Pt tends to forget BIG hands, arm swing and step with talking and so re-cued. PT-OP-T Assessment and Plan Start: 06/05/20 15:25 Freq: Status: Active Protocol: Document 06/12/20 14:16 MB (Rec: 06/12/20 15:41 MB [id number]) Physical Therapy Assessment Rehab Potential Rehabilitation Potential Good Evaluation Complexity Number of Personal Factors/Comorbidities 1-2 Number of Body Systems Impaired 1-2 Clinical Presentation at Evaluation Evolving Impairments Impairments Activity Tolerance,Balance, Gait,Posture,ROM Other Impairments Fluctuating BP is a barrier to PT. Goals 5 Chcf Goal (LTG) Pt will perform B SLS for 30 sec to improve standing balance for putting on pants by 07/14/2020. LTG Duration 16 treatments 4 Direct Response Consultant Goal (LTG) Pt will perform 19 sit to stands in 30 sec without UE support to improve functional strength and transfers by . LTG Duration 16 treatments 3 Direct Response Consultant Goal (LTG) Pt will perform WNLs on FGA reflect improved balance by . LTG Duration 16 treatments 2 [facility]cf Goal (LTG) Pt will perform BIG exercises and functional task exercises with I to improve amplitude of movement by 07/14/2020. LTG Duration 16 treatments 1 Direct Response Consultant Goal (LTG) Pt will gait train at least 1600 feet in 6 minutes without AD in order to improve community ambulation by 2019. LTG Duration 16 treatments Assessment Summary Assessment Pt progresses with exercises today with ankle weights, flicks and alternating. He fatigues with gait. Progress balance activities in future treatments. Physical Therapy Plan Frequency and Duration Frequency of Treatment 4x/Week Duration of Treatment 16 treatments Plan of Care Start Date 06/08/20 Plan of Care End Date 07/14/20 Therapeutic Interventions Therapeutic Interventions Balance Training,Canalithic Repositioning,Coordination Training,Gait Training,Home Exercise Program,Neuromuscular Re-education,Patient/ Caregiver Education,Self-Care/ Home Management,Therapeutic Activities,Therapeutic Exercises Modalities Cold Pack/Ice Massage,Hot Packs Next Visit Focus/Plan Next Note Type Treatment Note Next Visit Plan Initiate balance activities next treatment date. Con't BIG exercises and progress with weight, flicks, squeezing hand and finger mechanism. Functional tasks to include swinging golf club, buttoning clothes and SLS for dressing.
--- NOTE | 2020-06-15 15:29 | PT.OTN ---
Current Diagnoses Parkinson's disease (06/15/20) Physical Therapy Treatment Note PT-OP-A Visit Information Start: 06/05/20 15:25 Freq: Status: Active Protocol: Document 06/15/20 14:16 MB (Rec: 06/15/20 15:28 MB [id number]) Out-Patient Physical Therapy Visit Information Visit Information Visit Type Treatment Note Visit Note Medicare Visit Start Time 14:16 Visit Stop Time 15:15 Total Visit Minutes 59 Visit Number 01/14 PT-OP-B Current Condition Start: 06/05/20 15:25 Freq: Status: Active Protocol: Document 06/08/20 14:07 MB (Rec: 06/08/20 14:11 MB [id number]) Current Condition History of Current Condition Onset Date Pt first experienced loss of smell 1998 Current Complaints Hypotension, slowness, gait changes History of Current Condition Pt arrives for assessment in preparation to initiate BIG PT course. Pt's initial symptoms of PD were loss of smell in 1998 and erectile dysfunction prior to that. He was diagnosed in 2013. He emotional lability right before his dx. He reports a minor tremor that occurs with fine motor finger movement. PMH includes BPH, non-agressive prostate CA and he takes medication. His current PD symptoms include gait disturbance, hypotension and dizziness. He has pain in the small of his back with hypotension. Pt currently takes Carbidopa- levodopa time release 3 caps four times a day and Rasagiline 1x/day for his PD. His medications help his mobility. Pt had a stroke December 04, 2019. He passed out and his heard him fall. He was unconscious and couldn't talk when he came to. He had a left sided facial droop. He was dx with right MCA infarct. He got TPA and was taken to [place]. He was put on Eloquist and a statin. Pt underwent mitroclip 2019 for mitral prolapse. 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 Pt lives with his in [place]. He lives in a house. There are no stairs to enter the home. He has 2 steps in the house with 1 rail. He is a retired RT. Pt drives, helps with house cleaning, landscaping and repairs. He does not use AD. He likes to watch TV, [place] sail boats, cars and gliders. Pt's current PD symptoms are gait and speed difficulties, hypotension, slowness. His goals are to get more stamina, stronger, better conditioning . Pt is wearing B thigh high compression hose. Pt describes his back discomfort is near his kidneys . Pt likes to walk his small dog on a leash about 20-30 minutes a day. His light- headedness is not dependent on time of day but is dependent on being up. Pt drinks 16 oz of coffee in the morning. He is drinking two alcoholic drinks a day: 1 beer and either 1/2 glass of wine or shot a day. He is drinking 4 8 oz glasses of water or 2 16- 17 oz of carbonated flavored water a day. PT-OP-C Subjective Start: 06/05/20 15:25 Freq: Status: Active Protocol: Document 06/15/20 14:16 MB (Rec: 06/15/20 15:28 MB [id number]) OP-PT Subjective Patient Comments Patient Comments Okay! when PT asks pt how the exercises when over the weekend. Pt added flicks to exercises PT-OP-D Balance Start: 06/05/20 15:25 Freq: Status: Active Protocol: Document 06/08/20 14:07 MB (Rec: 06/08/20 15:48 MB [id number]) Balance Tests Other Other Balance Tests Performed SLS deferred today d/t pt is orthostatic with moving to standing PT-OP-G Mobility & Gait Start: 06/05/20 15:25 Freq: Status: Active Protocol: Document 06/08/20 14:07 MB (Rec: 06/08/20 15:48 MB [id number]) OP Gait Assessment Gait Gait Assistance Required: Independent Distance (Feet) 75 Assistive Devices Assistive Device None Gait Deviations General Gait Pattern Decreased Feet Clearance Comments Gait Comments Pt presents with increased right greater than left knee flexion with weight acceptance with gait. His right LE appears functionally longer than the left with gait. He presents with right greater than left foot scuffing with gait and presents with overpronation right foot with gait. PT-OP-M Strength Start: 06/05/20 15:25 Freq: Status: Active Protocol: Document 06/08/20 14:07 MB (Rec: 06/08/20 15:48 MB [id number]) Shoulder Strength Shoulder Manual Muscle Testing B Flexion 5 Normal Abduction (C5) 5 Normal Elbow/Forearm Strength Elbow and Forearm Manual Muscle Testing B Flexion (C6) 5 Normal Extension (C7) 5 Normal Hip Strength Hip Manual Muscle Testing Left Flexion (L2) 5 Normal Abduction 5 Normal Right Flexion (L2) 4 Good Abduction 4 Good Knee Strength Knee Manual Muscle Testing Left Extension (L3) 5 Normal Right Extension (L3) 5 Normal Ankle/Foot Strength Ankle and Foot Manual Muscle Testing Left Dorsiflexion (L4) 5 Normal Right Dorsiflexion (L4) 5 Normal Toe Strength Toe Manual Muscle Testing Left Great Toe Extension 5 Normal Right Great Toe Extension 4 Good PT-OP-Q Treatments Start: 06/05/20 15:25 Freq: Status: Active Protocol: Document 06/15/20 14:16 MB (Rec: 06/15/20 15:28 MB [id number]) Therapeutic Exercises Sitting Exercises Side to side Side bilateral Resistance 1 lb ankle weights Equipment Used Gym table in room, raised Reps/Minutes 6 reps, alternating Comments Cues for BIG back leg Floor to ceiling Resistance 1 lb ankle weights Equipment Used Gym table in room, raised Reps/Minutes 5 reps Comments Flicks BIG sit to stands Resistance 1 lb ankle weights Equipment Used Gym table in room, raised Reps/Minutes 10 Standing Exercises Sideways rock and reach Side bilateral Resistance 1 lb ankle weights Reps/Minutes 5 reps Comments Cues to start with hands on thighs, pivot on foot and then bring arms along Forward rock and reach Side bilateral Resistance 1 lb ankle weights Reps/Minutes 10 Comments Cues for BIG stance Side step Side bilateral Resistance 1 lb ankle weights Reps/Minutes 6 reps Comments Alternating Backward step Side bilateral Resistance 1 lb ankle weights Reps/Minutes 5 reps Comments Cues for positioning Forward step Side bilateral Resistance 1 lb ankle weights Reps/Minutes 10 reps Comments Alternating Therapeutic Activity Therapeutic Activity SLS, weight shift side to side and then knee tap opposite hand on golf club Reps/Minutes 8 Comments Pt cannot perform SLS either side without LOB requiring assist to prevent fall and then pt even tends to position back to mat. Attempted 6 reps . Attempted weight shift step to right and then left leg and also too challenging with hip flexion. Handed pt golf club and he holds between both hands and then practices weight shift to opposite side by touching opposite knee to opposite hand x 10 reps Gait Training Gait Activity BIG walking Surface gym stairs, tile, carpet, mini hurdles Distance/Duration 15 min Treatment Focus Cues for 2 BIG steps top of stairs Comments Pt has trouble coordinating stairs with one BIG step turn at top of 3 standard steps, tends to slow gait in preparation of performing stairs and hurdles PT-OP-T Assessment and Plan Start: 06/05/20 15:25 Freq: Status: Active Protocol: Document 06/15/20 14:16 MB (Rec: 06/15/20 15:28 MB [id number]) Physical Therapy Assessment Rehab Potential Rehabilitation Potential Good Evaluation Complexity Number of Personal Factors/Comorbidities 1-2 Number of Body Systems Impaired 1-2 Clinical Presentation at Evaluation Evolving Impairments Impairments Activity Tolerance,Balance, Gait,Posture,ROM Other Impairments Fluctuating BP is a barrier to PT. Goals 5 Ballet Master/Mistress Goal (LTG) Pt will perform B SLS for 30 sec to improve standing balance for putting on pants by 07/14/2020. LTG Duration 16 treatments 4 Ballet Master/Mistress Goal (LTG) Pt will perform 19 sit to stands in 30 sec without UE support to improve functional strength and transfers by . LTG Duration 16 treatments 3 Ballet Master/Mistress Goal (LTG) Pt will perform WNLs on FGA reflect improved balance by . LTG Duration 16 treatments 2 Ballet Master/Mistress Goal (LTG) Pt will perform BIG exercises and functional task exercises with I to improve amplitude of movement by 07/14/2020. LTG Duration 16 treatments 1 Ballet Master/Mistress Goal (LTG) Pt will gait train at least 1600 feet in 6 minutes without AD in order to improve community ambulation by 2019. LTG Duration 16 treatments Assessment Summary Assessment Progressed balance exercises today and pt has a lot of trouble with single leg transitioning and exercises, con't to work on balance with gait and therapeutic activity. Physical Therapy Plan Frequency and Duration Frequency of Treatment 4x/Week Duration of Treatment 16 treatments Plan of Care Start Date 06/08/20 Plan of Care End Date 07/14/20 Therapeutic Interventions Therapeutic Interventions Balance Training,Canalithic Repositioning,Coordination Training,Gait Training,Home Exercise Program,Neuromuscular Re-education,Patient/ Caregiver Education,Self-Care/ Home Management,Therapeutic Activities,Therapeutic Exercises Modalities Cold Pack/Ice Massage,Hot Packs Next Visit Focus/Plan Next Note Type Treatment Note Next Visit Plan Con't balance activities next treatment date. Con't BIG exercises and progress with weight, flicks, squeezing hand and finger mechanism. Functional tasks to include swinging golf club, buttoning clothes and SLS for dressing.
--- NOTE | 2020-06-16 15:45 | PT.OTN ---
Current Diagnoses Parkinson's disease (06/16/20) Physical Therapy Treatment Note PT-OP-A Visit Information Start: 06/05/20 15:25 Freq: Status: Active Protocol: Document 06/16/20 14:35 MB (Rec: 06/16/20 15:45 MB [id number]) Out-Patient Physical Therapy Visit Information Visit Information Visit Type Treatment Note Visit Start Time 14:35 Visit Stop Time 15:35 Total Visit Minutes 60 Visit Number 7 PT-OP-B Current Condition Start: 06/05/20 15:25 Freq: Status: Active Protocol: Document 06/08/20 14:07 MB (Rec: 06/08/20 14:11 MB [id number]) Current Condition History of Current Condition Onset Date Pt first experienced loss of smell 1998 Current Complaints Hypotension, slowness, gait changes History of Current Condition Pt arrives for assessment in preparation to initiate BIG PT course. Pt's initial symptoms of PD were loss of smell in 1998 and erectile dysfunction prior to that. He was diagnosed in 2013. He emotional lability right before his dx. He reports a minor tremor that occurs with fine motor finger movement. PMH includes BPH, non-agressive prostate CA and he takes medication. His current PD symptoms include gait disturbance, hypotension and dizziness. He has pain in the small of his back with hypotension. Pt currently takes Carbidopa- levodopa time release 3 caps four times a day and Rasagiline 1x/day for his PD. His medications help his mobility. Pt had a stroke December 04, 2019. He passed out and his heard him fall. He was unconscious and couldn't talk when he came to. He had a left sided facial droop. He was dx with right MCA infarct. He got TPA and was taken to [facility]. He was put on Eloquist and a statin. Pt underwent mitroclip 2019 for mitral prolapse. 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 Pt lives with his in [place]. He lives in a house. There are no stairs to enter the home. He has 2 steps in the house with 1 rail. He is a retired RT. Pt drives, helps with house cleaning, landscaping and repairs. He does not use AD. He likes to watch TV, RC sail boats, cars and gliders. Pt's current PD symptoms are gait and speed difficulties, hypotension, slowness. His goals are to get more stamina, stronger, better conditioning . Pt is wearing B thigh high compression hose. Pt describes his back discomfort is near his kidneys . Pt likes to walk his small dog on a leash about 20-30 minutes a day. His light- headedness is not dependent on time of day but is dependent on being up. Pt drinks 16 oz of coffee in the morning. He is drinking two alcoholic drinks a day: 1 beer and either 1/2 glass of wine or shot a day. He is drinking 4 8 oz glasses of water or 2 16- 17 oz of carbonated flavored water a day. PT-OP-C Subjective Start: 06/05/20 15:25 Freq: Status: Active Protocol: Document 06/16/20 14:35 MB (Rec: 06/16/20 15:45 MB [id number]) OP-PT Subjective Patient Comments Patient Comments Today is the first day I felt dizzy in a while. I drank some water after having my coffee and then felt better. PT-OP-D Balance Start: 06/05/20 15:25 Freq: Status: Active Protocol: Document 06/08/20 14:07 MB (Rec: 06/08/20 15:48 MB [id number]) Balance Tests Other Other Balance Tests Performed SLS deferred today d/t pt is orthostatic with moving to standing PT-OP-G Mobility & Gait Start: 06/05/20 15:25 Freq: Status: Active Protocol: Document 06/08/20 14:07 MB (Rec: 06/08/20 15:48 MB [id number]) OP Gait Assessment Gait Gait Assistance Required: Independent Distance (Feet) 75 Assistive Devices Assistive Device None Gait Deviations General Gait Pattern Decreased Feet Clearance Comments Gait Comments Pt presents with increased right greater than left knee flexion with weight acceptance with gait. His right LE appears functionally longer than the left with gait. He presents with right greater than left foot scuffing with gait and presents with overpronation right foot with gait. PT-OP-M Strength Start: 06/05/20 15:25 Freq: Status: Active Protocol: Document 06/08/20 14:07 MB (Rec: 06/08/20 15:48 MB [id number]) Shoulder Strength Shoulder Manual Muscle Testing B Flexion 5 Normal Abduction (C5) 5 Normal Elbow/Forearm Strength Elbow and Forearm Manual Muscle Testing B Flexion (C6) 5 Normal Extension (C7) 5 Normal Hip Strength Hip Manual Muscle Testing Left Flexion (L2) 5 Normal Abduction 5 Normal Right Flexion (L2) 4 Good Abduction 4 Good Knee Strength Knee Manual Muscle Testing Left Extension (L3) 5 Normal Right Extension (L3) 5 Normal Ankle/Foot Strength Ankle and Foot Manual Muscle Testing Left Dorsiflexion (L4) 5 Normal Right Dorsiflexion (L4) 5 Normal Toe Strength Toe Manual Muscle Testing Left Great Toe Extension 5 Normal Right Great Toe Extension 4 Good PT-OP-Q Treatments Start: 06/05/20 15:25 Freq: Status: Active Protocol: Document 06/16/20 14:35 MB (Rec: 06/16/20 15:45 MB [id number]) Therapeutic Exercises Sitting Exercises Side to side Side bilateral Resistance 1 lb ankle weights Equipment Used Gym table in room, raised Reps/Minutes 6 reps Comments Cues for BIG back leg Floor to ceiling Resistance 1 lb ankle weights Equipment Used Gym table in room, raised Reps/Minutes 5 reps Comments Flicks BIG sit to stands Resistance 1 lb ankle weights Equipment Used Gym table in room, raised Reps/Minutes 11 Standing Exercises Sideways rock and reach Side bilateral Resistance 1 lb ankle weights Reps/Minutes 5 reps Comments Pt performs better today Forward rock and reach Side bilateral Resistance 1 lb ankle weights Reps/Minutes 10 Comments Better BIG stance today Side step Side bilateral Resistance 1 lb ankle weights Reps/Minutes 5 reps Comments Alternating Backward step Side bilateral Resistance 1 lb ankle weights Reps/Minutes 5 reps Comments Better performance today Forward step Side bilateral Resistance 1 lb ankle weights Reps/Minutes 10 reps Comments Alternating Therapeutic Activity Therapeutic Activity SLS, weight shift side to side and then knee tap opposite hand on golf club Reps/Minutes 9 Comments SLS in corner today x4 each leg: up to 5 sec on left and 2 sec on R. Tandem 17 sec left behind and 5 right behind. Knee to opposite hand holding golf club: 5 reps x2 and LOB second set, better than yesterday. Golf swings 5 reps x2 and pt performs weight shift well and no LOB Gait Training Gait Activity BIG walking Description 1 lb ankle weights Surface stairs, tile, carpet, mini hurdles, balance pads Distance/Duration 23' Treatment Focus BIG steps with turns Comments Performed obstacle course of mini hurdles and balance pads, 3 cones and 3 steps wtih BIG turn at top x10 and pt has occ LOB and trouble keeping jo. 1 set large flight of steps outside clinic area and gait in hospital with BIG stepping PT-OP-T Assessment and Plan Start: 06/05/20 15:25 Freq: Status: Active Protocol: Document 06/16/20 14:35 MB (Rec: 06/16/20 15:45 MB [id number]) Physical Therapy Assessment Rehab Potential Rehabilitation Potential Good Evaluation Complexity Number of Personal Factors/Comorbidities 1-2 Number of Body Systems Impaired 1-2 Clinical Presentation at Evaluation Evolving Impairments Impairments Activity Tolerance,Balance, Gait,Posture,ROM Other Impairments Fluctuating BP is a barrier to PT. Goals 5 Senior Living Goal (LTG) Pt will perform B SLS for 30 sec to improve standing balance for putting on pants by 07/14/2020. LTG Duration 16 treatments 4 Senior Living Goal (LTG) Pt will perform 19 sit to stands in 30 sec without UE support to improve functional strength and transfers by . LTG Duration 16 treatments 3 Senior Living Goal (LTG) Pt will perform WNLs on FGA reflect improved balance by . LTG Duration 16 treatments 2 Senior Living Goal (LTG) Pt will perform BIG exercises and functional task exercises with I to improve amplitude of movement by 07/14/2020. LTG Duration 16 treatments 1 Senior Living Goal (LTG) Pt will gait train at least 1600 feet in 6 minutes without AD in order to improve community ambulation by 2019. LTG Duration 16 treatments Assessment Summary Assessment Better balance today with balance exercise and carryover to golf swing. Improved stamina with BIG walking wtih 1 lb weights donned throughout exercise and gait today. Physical Therapy Plan Frequency and Duration Frequency of Treatment 4x/Week Duration of Treatment 16 treatments Plan of Care Start Date 06/08/20 Plan of Care End Date 07/14/20 Therapeutic Interventions Therapeutic Interventions Balance Training,Canalithic Repositioning,Coordination Training,Gait Training,Home Exercise Program,Neuromuscular Re-education,Patient/ Caregiver Education,Self-Care/ Home Management,Therapeutic Activities,Therapeutic Exercises Modalities Cold Pack/Ice Massage,Hot Packs Next Visit Focus/Plan Next Note Type Treatment Note Next Visit Plan Con't balance activities next treatment date. Con't BIG exercises and progress with weight, flicks, squeezing hand and finger mechanism. Functional tasks to include swinging golf club, buttoning clothes and SLS for dressing.
--- NOTE | 2020-06-17 14:51 | PT.OTN ---
Current Diagnoses Parkinson's disease (06/17/20) Physical Therapy Treatment Note PT-OP-A Visit Information Start: 06/05/20 15:25 Freq: Status: Active Protocol: Document 06/17/20 14:33 AW (Rec: 06/17/20 14:51 AW [id number]) Out-Patient Physical Therapy Visit Information Visit Information Visit Type Treatment Note Visit Start Time 13:03 Visit Stop Time 14:00 Total Visit Minutes 57 Visit Number 03/16 PT-OP-B Current Condition Start: 06/05/20 15:25 Freq: Status: Active Protocol: Document 06/08/20 14:07 MB (Rec: 06/08/20 14:11 MB [id number]) Current Condition History of Current Condition Onset Date Pt first experienced loss of smell 1998 Current Complaints Hypotension, slowness, gait changes History of Current Condition Pt arrives for assessment in preparation to initiate BIG PT course. Pt's initial symptoms of PD were loss of smell in 1998 and erectile dysfunction prior to that. He was diagnosed in 2013. He emotional lability right before his dx. He reports a minor tremor that occurs with fine motor finger movement. PMH includes BPH, non-agressive prostate CA and he takes medication. His current PD symptoms include gait disturbance, hypotension and dizziness. He has pain in the small of his back with hypotension. Pt currently takes Carbidopa- levodopa time release 3 caps four times a day and Rasagiline 1x/day for his PD. His medications help his mobility. Pt had a stroke December 04, 2019. He passed out and his heard him fall. He was unconscious and couldn't talk when he came to. He had a left sided facial droop. He was dx with right MCA infarct. He got TPA and was taken to [facility]. He was put on Eloquist and a statin. Pt underwent mitroclip 2019 for mitral prolapse. 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 Pt lives with his in [place]. He lives in a house. There are no stairs to enter the home. He has 2 steps in the house with 1 rail. He is a retired RT. Pt drives, helps with house cleaning, landscaping and repairs. He does not use AD. He likes to watch TV, [place] sail boats, cars and gliders. Pt's current PD symptoms are gait and speed difficulties, hypotension, slowness. His goals are to get more stamina, stronger, better conditioning . Pt is wearing B thigh high compression hose. Pt describes his back discomfort is near his kidneys . Pt likes to walk his small dog on a leash about 20-30 minutes a day. His light- headedness is not dependent on time of day but is dependent on being up. Pt drinks 16 oz of coffee in the morning. He is drinking two alcoholic drinks a day: 1 beer and either 1/2 glass of wine or shot a day. He is drinking 4 8 oz glasses of water or 2 16- 17 oz of carbonated flavored water a day. PT-OP-C Subjective Start: 06/05/20 15:25 Freq: Status: Active Protocol: Document 06/17/20 14:33 AW (Rec: 06/17/20 14:51 AW [id number]) OP-PT Subjective Patient Comments Patient Comments Pt was willing to move up his appointment time 1.25 hours for therapist convenience. Because of this, he did not do the full complement of exercises this AM. PT-OP-D Balance Start: 06/05/20 15:25 Freq: Status: Active Protocol: Document 06/08/20 14:07 MB (Rec: 06/08/20 15:48 MB [id number]) Balance Tests Other Other Balance Tests Performed SLS deferred today d/t pt is orthostatic with moving to standing PT-OP-G Mobility & Gait Start: 06/05/20 15:25 Freq: Status: Active Protocol: Document 06/08/20 14:07 MB (Rec: 06/08/20 15:48 MB [id number]) OP Gait Assessment Gait Gait Assistance Required: Independent Distance (Feet) 75 Assistive Devices Assistive Device None Gait Deviations General Gait Pattern Decreased Feet Clearance Comments Gait Comments Pt presents with increased right greater than left knee flexion with weight acceptance with gait. His right LE appears functionally longer than the left with gait. He presents with right greater than left foot scuffing with gait and presents with overpronation right foot with gait. PT-OP-M Strength Start: 06/05/20 15:25 Freq: Status: Active Protocol: Document 06/08/20 14:07 MB (Rec: 06/08/20 15:48 MB [id number]) Shoulder Strength Shoulder Manual Muscle Testing B Flexion 5 Normal Abduction (C5) 5 Normal Elbow/Forearm Strength Elbow and Forearm Manual Muscle Testing B Flexion (C6) 5 Normal Extension (C7) 5 Normal Hip Strength Hip Manual Muscle Testing Left Flexion (L2) 5 Normal Abduction 5 Normal Right Flexion (L2) 4 Good Abduction 4 Good Knee Strength Knee Manual Muscle Testing Left Extension (L3) 5 Normal Right Extension (L3) 5 Normal Ankle/Foot Strength Ankle and Foot Manual Muscle Testing Left Dorsiflexion (L4) 5 Normal Right Dorsiflexion (L4) 5 Normal Toe Strength Toe Manual Muscle Testing Left Great Toe Extension 5 Normal Right Great Toe Extension 4 Good PT-OP-Q Treatments Start: 06/05/20 15:25 Freq: Status: Active Protocol: Document 06/17/20 14:33 AW (Rec: 06/17/20 14:51 AW [id number]) Therapeutic Exercises Sitting Exercises Side to side Side bilateral Resistance 1 lb ankle weights Equipment Used Gym table in room, raised Reps/Minutes 8 reps each directopm Comments Cues for more upright posture in side position Floor to ceiling Resistance 1 lb ankle weights Equipment Used Gym table in room, raised Reps/Minutes 10 reps Comments Flicks BIG sit to stands Resistance 1 lb ankle weights Equipment Used Gym table in room at 20, 2 foam pad Reps/Minutes 8 x 2 Comments 1 set from 20 table no cues; 2nd set with foam under ft & table raised 2 Standing Exercises Sideways rock and reach Side bilateral Resistance 1 lb ankle weights Reps/Minutes 8 reps each direction Comments improved rotation and back foot pivot Forward rock and reach Side bilateral Resistance 1 lb ankle weights Reps/Minutes 10 Comments cues to fix gaze on opposite wall Side step Side bilateral Resistance 1 lb ankle weights Equipment Used tumbling mat Reps/Minutes 5 reps Comments Alternating Backward step Side bilateral Resistance 1 lb ankle weights Equipment Used tumbling mat Reps/Minutes 5 reps Comments Better performance today Forward step Side bilateral Resistance 1 lb ankle weights Equipment Used tumbling mat Reps/Minutes 10 reps Comments Alternating Therapeutic Activity Therapeutic Activity SLS, weight shift side to side and then knee tap opposite hand on golf club Name SLS Reps/Minutes 8 Comments SLS in corner with quick alternating high steps and high cross-body knees. Pt also swings golf swing service dog trainer (pt's own) with good rotation and balance. Opening small glass jar Comments Encouraged pt to bring nancie jar from home. Plan to close with silicone datapower developer to make opening more challenging. buttoning Name buttoning Reps/Minutes 10 min Comments Pt practiced donning shirt in standing and buttoning all buttons with average time 19 seconds Gait Training Gait Activity BIG walking Description 1 lb ankle weights Surface stairs, tile, carpet Distance/Duration 20' Treatment Focus BIG steps with turns Comments Pt was limited by shortness of breath and mild lightheadedness today. Gait training was interspersed with other activities in shorter bursts. Practiced BIG walking on tile and carpet, incorporating stairs with BIG turn at top. PT-OP-T Assessment and Plan Start: 06/05/20 15:25 Freq: Status: Active Protocol: Document 06/17/20 14:33 AW (Rec: 06/17/20 14:51 AW [id number]) Physical Therapy Assessment Rehab Potential Rehabilitation Potential Good Evaluation Complexity Number of Personal Factors/Comorbidities 1-2 Number of Body Systems Impaired 1-2 Clinical Presentation at Evaluation Evolving Impairments Impairments Activity Tolerance,Balance, Gait,Posture,ROM Other Impairments Fluctuating BP is a barrier to PT. Goals 5 Detention Goal (LTG) Pt will perform B SLS for 30 sec to improve standing balance for putting on pants by 07/14/2020. LTG Duration 16 treatments 4 Retort Furnace Operator Goal (LTG) Pt will perform 19 sit to stands in 30 sec without UE support to improve functional strength and transfers by . LTG Duration 16 treatments 3 Detention Goal (LTG) Pt will perform WNLs on FGA reflect improved balance by . LTG Duration 16 treatments 2 Detention Goal (LTG) Pt will perform BIG exercises and functional task exercises with I to improve amplitude of movement by 07/14/2020. LTG Duration 16 treatments 1 Detention Goal (LTG) Pt will gait train at least 1600 feet in 6 minutes without AD in order to improve community ambulation by 2019. LTG Duration 16 treatments Assessment Summary Assessment Stamina decreased today with pt complaining of shortness of breath and lightheadedness mid-exercises. BP was 124/76 after 5 minutes exercise and 108/67 after another 15 minutes of activity. PT observes uncued posture correction and amplitude adjustments during exercises and walking today. Physical Therapy Plan Frequency and Duration Frequency of Treatment 4x/Week Duration of Treatment 16 treatments Plan of Care Start Date 06/08/20 Plan of Care End Date 07/14/20 Therapeutic Interventions Therapeutic Interventions Balance Training,Canalithic Repositioning,Coordination Training,Gait Training,Home Exercise Program,Neuromuscular Re-education,Patient/ Caregiver Education,Self-Care/ Home Management,Therapeutic Activities,Therapeutic Exercises Modalities Cold Pack/Ice Massage,Hot Packs Next Visit Focus/Plan Next Note Type Treatment Note Next Visit Plan Con't balance activities next treatment date. Con't BIG exercises and progress with weight, flicks, squeezing hand and finger mechanism. Functional tasks to include swinging golf club, buttoning clothes and SLS for dressing.
--- NOTE | 2020-06-18 15:52 | PT.OTN ---
Current Diagnoses Parkinson's disease (06/18/20) Physical Therapy Treatment Note PT-OP-A Visit Information Start: 06/05/20 15:25 Freq: Status: Active Protocol: Document 06/18/20 15:44 MB (Rec: 06/18/20 15:52 MB [id number]) Out-Patient Physical Therapy Visit Information Visit Information Visit Type Treatment Note Visit Start Time 14:17 Visit Stop Time 15:17 Total Visit Minutes 60 Visit Number 9 PT-OP-B Current Condition Start: 06/05/20 15:25 Freq: Status: Active Protocol: Document 06/08/20 14:07 MB (Rec: 06/08/20 14:11 MB [id number]) Current Condition History of Current Condition Onset Date Pt first experienced loss of smell 1998 Current Complaints Hypotension, slowness, gait changes History of Current Condition Pt arrives for assessment in preparation to initiate BIG PT course. Pt's initial symptoms of PD were loss of smell in 1998 and erectile dysfunction prior to that. He was diagnosed in 2013. He emotional lability right before his dx. He reports a minor tremor that occurs with fine motor finger movement. PMH includes BPH, non-agressive prostate CA and he takes medication. His current PD symptoms include gait disturbance, hypotension and dizziness. He has pain in the small of his back with hypotension. Pt currently takes Carbidopa- levodopa time release 3 caps four times a day and Rasagiline 1x/day for his PD. His medications help his mobility. Pt had a stroke December 04, 2019. He passed out and his heard him fall. He was unconscious and couldn't talk when he came to. He had a left sided facial droop. He was dx with right MCA infarct. He got TPA and was taken to [facility]. He was put on Eloquist and a statin. Pt underwent mitroclip 2019 for mitral prolapse. 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 Pt lives with his in [place]. He lives in a house. There are no stairs to enter the home. He has 2 steps in the house with 1 rail. He is a retired RT. Pt drives, helps with house cleaning, landscaping and repairs. He does not use AD. He likes to watch TV, RC sail boats, cars and gliders. Pt's current PD symptoms are gait and speed difficulties, hypotension, slowness. His goals are to get more stamina, stronger, better conditioning . Pt is wearing B thigh high compression hose. Pt describes his back discomfort is near his kidneys . Pt likes to walk his small dog on a leash about 20-30 minutes a day. His light- headedness is not dependent on time of day but is dependent on being up. Pt drinks 16 oz of coffee in the morning. He is drinking two alcoholic drinks a day: 1 beer and either 1/2 glass of wine or shot a day. He is drinking 4 8 oz glasses of water or 2 16- 17 oz of carbonated flavored water a day. PT-OP-C Subjective Start: 06/05/20 15:25 Freq: Status: Active Protocol: Document 06/18/20 15:44 MB (Rec: 06/18/20 15:52 MB [id number]) OP-PT Subjective Patient Comments Patient Comments Yesterday I had an orthostatic problem. Pt states that he feels better today. PT-OP-D Balance Start: 06/05/20 15:25 Freq: Status: Active Protocol: Document 06/08/20 14:07 MB (Rec: 06/08/20 15:48 MB [id number]) Balance Tests Other Other Balance Tests Performed SLS deferred today d/t pt is orthostatic with moving to standing PT-OP-G Mobility & Gait Start: 06/05/20 15:25 Freq: Status: Active Protocol: Document 06/08/20 14:07 MB (Rec: 06/08/20 15:48 MB [id number]) OP Gait Assessment Gait Gait Assistance Required: Independent Distance (Feet) 75 Assistive Devices Assistive Device None Gait Deviations General Gait Pattern Decreased Feet Clearance Comments Gait Comments Pt presents with increased right greater than left knee flexion with weight acceptance with gait. His right LE appears functionally longer than the left with gait. He presents with right greater than left foot scuffing with gait and presents with overpronation right foot with gait. PT-OP-M Strength Start: 06/05/20 15:25 Freq: Status: Active Protocol: Document 06/08/20 14:07 MB (Rec: 06/08/20 15:48 MB [id number]) Shoulder Strength Shoulder Manual Muscle Testing B Flexion 5 Normal Abduction (C5) 5 Normal Elbow/Forearm Strength Elbow and Forearm Manual Muscle Testing B Flexion (C6) 5 Normal Extension (C7) 5 Normal Hip Strength Hip Manual Muscle Testing Left Flexion (L2) 5 Normal Abduction 5 Normal Right Flexion (L2) 4 Good Abduction 4 Good Knee Strength Knee Manual Muscle Testing Left Extension (L3) 5 Normal Right Extension (L3) 5 Normal Ankle/Foot Strength Ankle and Foot Manual Muscle Testing Left Dorsiflexion (L4) 5 Normal Right Dorsiflexion (L4) 5 Normal Toe Strength Toe Manual Muscle Testing Left Great Toe Extension 5 Normal Right Great Toe Extension 4 Good PT-OP-Q Treatments Start: 06/05/20 15:25 Freq: Status: Active Protocol: Document 06/18/20 15:44 MB (Rec: 06/18/20 15:52 MB [id number]) Therapeutic Exercises Sitting Exercises Side to side Side bilateral Resistance 1 lb ankle weights Equipment Used Gym table in room, raised Reps/Minutes 5 reps Comments Cues for BIG back leg, alternating Floor to ceiling Resistance 1 lb ankle weights Equipment Used Gym table in room, raised Reps/Minutes 5 reps Comments Flicks BIG sit to stands Resistance 1 lb ankle weights Equipment Used Gym table in room, raised Reps/Minutes 12 Standing Exercises Sideways rock and reach Side bilateral Resistance 1 lb ankle weights Reps/Minutes 5 reps Comments Alternating with cues for right arm Forward rock and reach Side bilateral Resistance 1 lb ankle weights Reps/Minutes 10 Comments Better BIG stance today Side step Side bilateral Resistance 1 lb ankle weights Reps/Minutes 5 reps Comments Alternating Backward step Side bilateral Resistance 1 lb ankle weights Reps/Minutes 5 reps Comments Alternating and some inconsistencies with stepping left foot back Forward step Side bilateral Resistance 1 lb ankle weights Reps/Minutes 10 reps Comments Alternating Therapeutic Activity Therapeutic Activity SLS, weight shift side to side and then knee tap opposite hand on golf club Reps/Minutes 4 Comments Knee to opposite hand holding swing show dog trainer: 10 reps x1. Golf swings 5 reps from the right and 5 reps from the left and pt performs weight shift well and no LOB Gait Training Gait Activity BIG walking Description 1 lb ankle weights Surface Outside sidewalk, curbs, grass , indoor steps Distance/Duration 33' Treatment Focus BIG steps with turns Comments Focus on BIG amplitude and keep jo up with changing surfaces, going around corners and making turns. Flicks when cued and pt tends to decrease jo when talking. PT-OP-T Assessment and Plan Start: 06/05/20 15:25 Freq: Status: Active Protocol: Document 06/18/20 15:44 MB (Rec: 06/18/20 15:52 MB [id number]) Physical Therapy Assessment Rehab Potential Rehabilitation Potential Good Evaluation Complexity Number of Personal Factors/Comorbidities 1-2 Number of Body Systems Impaired 1-2 Clinical Presentation at Evaluation Evolving Impairments Impairments Activity Tolerance,Balance, Gait,Posture,ROM Other Impairments Fluctuating BP is a barrier to PT. Goals 5 Crawler Tractor Operator Goal (LTG) Pt will perform B SLS for 30 sec to improve standing balance for putting on pants by 07/14/2020. LTG Duration 16 treatments 4 Senior Living Goal (LTG) Pt will perform 19 sit to stands in 30 sec without UE support to improve functional strength and transfers by . LTG Duration 16 treatments 3 Senior Living Goal (LTG) Pt will perform WNLs on FGA reflect improved balance by . LTG Duration 16 treatments 2 Crawler Tractor Operator Goal (LTG) Pt will perform BIG exercises and functional task exercises with I to improve amplitude of movement by 07/14/2020. LTG Duration 16 treatments 1 Senior Living Goal (LTG) Pt will gait train at least 1600 feet in 6 minutes without AD in order to improve community ambulation by 2019. LTG Duration 16 treatments Assessment Summary Assessment Pt with better endurance with gait today and he requires less rest breaks with total of three breaks during treatment . Exercises after long gait today and pt performs well, ongoing cues for form, BIG legs. Pt con't to progress well and will add ankle weights and flicks to walking at home. Physical Therapy Plan Frequency and Duration Frequency of Treatment 4x/Week Duration of Treatment 16 treatments Plan of Care Start Date 06/08/20 Plan of Care End Date 07/14/20 Therapeutic Interventions Therapeutic Interventions Balance Training,Canalithic Repositioning,Coordination Training,Gait Training,Home Exercise Program,Neuromuscular Re-education,Patient/ Caregiver Education,Self-Care/ Home Management,Therapeutic Activities,Therapeutic Exercises Modalities Cold Pack/Ice Massage,Hot Packs Next Visit Focus/Plan Next Note Type Treatment Note Next Visit Plan Con't balance activities next treatment date. Con't BIG exercises and progress with weight, flicks, squeezing hand and finger mechanism. Functional tasks to include swinging golf club, buttoning clothes and SLS for dressing.
--- NOTE | 2020-06-22 15:39 | PT.OTN ---
Current Diagnoses Parkinson's disease (06/22/20) Physical Therapy Treatment Note PT-OP-A Visit Information Start: 06/05/20 15:25 Freq: Status: Active Protocol: Document 06/22/20 14:18 MB (Rec: 06/22/20 15:39 MB [id number]) Out-Patient Physical Therapy Visit Information Visit Information Visit Type Treatment Note Visit Start Time 14:18 Visit Stop Time 15:18 Total Visit Minutes 60 Visit Number 10 PT-OP-B Current Condition Start: 06/05/20 15:25 Freq: Status: Active Protocol: Document 06/08/20 14:07 MB (Rec: 06/08/20 14:11 MB [id number]) Current Condition History of Current Condition Onset Date Pt first experienced loss of smell 1998 Current Complaints Hypotension, slowness, gait changes History of Current Condition Pt arrives for assessment in preparation to initiate BIG PT course. Pt's initial symptoms of PD were loss of smell in 1998 and erectile dysfunction prior to that. He was diagnosed in 2013. He emotional lability right before his dx. He reports a minor tremor that occurs with fine motor finger movement. PMH includes BPH, non-agressive prostate CA and he takes medication. His current PD symptoms include gait disturbance, hypotension and dizziness. He has pain in the small of his back with hypotension. Pt currently takes Carbidopa- levodopa time release 3 caps four times a day and Rasagiline 1x/day for his PD. His medications help his mobility. Pt had a stroke December 04, 2019. He passed out and his heard him fall. He was unconscious and couldn't talk when he came to. He had a left sided facial droop. He was dx with right MCA infarct. He got TPA and was taken to [facility]. He was put on Eloquist and a statin. Pt underwent mitroclip 2019 for mitral prolapse. 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 Pt lives with his in [place]. He lives in a house. There are no stairs to enter the home. He has 2 steps in the house with 1 rail. He is a retired RT. Pt drives, helps with house cleaning, landscaping and repairs. He does not use AD. He likes to watch TV, RC sail boats, cars and gliders. Pt's current PD symptoms are gait and speed difficulties, hypotension, slowness. His goals are to get more stamina, stronger, better conditioning . Pt is wearing B thigh high compression hose. Pt describes his back discomfort is near his kidneys . Pt likes to walk his small dog on a leash about 20-30 minutes a day. His light- headedness is not dependent on time of day but is dependent on being up. Pt drinks 16 oz of coffee in the morning. He is drinking two alcoholic drinks a day: 1 beer and either 1/2 glass of wine or shot a day. He is drinking 4 8 oz glasses of water or 2 16- 17 oz of carbonated flavored water a day. PT-OP-C Subjective Start: 06/05/20 15:25 Freq: Status: Active Protocol: Document 06/22/20 14:18 MB (Rec: 06/22/20 15:39 MB [id number]) OP-PT Subjective Patient Comments Patient Comments Good! when PT asks pt how his weekend was. Pt is performing exercises with flicks. He has not tried ankle weights with exercises at home. PT-OP-D Balance Start: 06/05/20 15:25 Freq: Status: Active Protocol: Document 06/08/20 14:07 MB (Rec: 06/08/20 15:48 MB [id number]) Balance Tests Other Other Balance Tests Performed SLS deferred today d/t pt is orthostatic with moving to standing PT-OP-G Mobility & Gait Start: 06/05/20 15:25 Freq: Status: Active Protocol: Document 06/08/20 14:07 MB (Rec: 06/08/20 15:48 MB [id number]) OP Gait Assessment Gait Gait Assistance Required: Independent Distance (Feet) 75 Assistive Devices Assistive Device None Gait Deviations General Gait Pattern Decreased Feet Clearance Comments Gait Comments Pt presents with increased right greater than left knee flexion with weight acceptance with gait. His right LE appears functionally longer than the left with gait. He presents with right greater than left foot scuffing with gait and presents with overpronation right foot with gait. PT-OP-M Strength Start: 06/05/20 15:25 Freq: Status: Active Protocol: Document 06/08/20 14:07 MB (Rec: 06/08/20 15:48 MB [id number]) Shoulder Strength Shoulder Manual Muscle Testing B Flexion 5 Normal Abduction (C5) 5 Normal Elbow/Forearm Strength Elbow and Forearm Manual Muscle Testing B Flexion (C6) 5 Normal Extension (C7) 5 Normal Hip Strength Hip Manual Muscle Testing Left Flexion (L2) 5 Normal Abduction 5 Normal Right Flexion (L2) 4 Good Abduction 4 Good Knee Strength Knee Manual Muscle Testing Left Extension (L3) 5 Normal Right Extension (L3) 5 Normal Ankle/Foot Strength Ankle and Foot Manual Muscle Testing Left Dorsiflexion (L4) 5 Normal Right Dorsiflexion (L4) 5 Normal Toe Strength Toe Manual Muscle Testing Left Great Toe Extension 5 Normal Right Great Toe Extension 4 Good PT-OP-Q Treatments Start: 06/05/20 15:25 Freq: Status: Active Protocol: Document 06/22/20 14:18 MB (Rec: 06/22/20 15:39 MB [id number]) Therapeutic Exercises Sitting Exercises Side to side Side bilateral Resistance 1 lb ankle weights Equipment Used Gym table in room, raised less today Reps/Minutes 5 reps Comments Cues for BIG back leg, alternating, flicks Floor to ceiling Resistance 1 lb ankle weights Equipment Used Gym table in room, raised less today Reps/Minutes 5 reps Comments Flicks Standing Exercises Sideways rock and reach Side bilateral Resistance 1 lb ankle weights Reps/Minutes 5 reps Comments Alternating, much improved today Forward rock and reach Side bilateral Resistance 1 lb ankle weights Reps/Minutes 10 Comments Better BIG stance today, much improved Side step Side bilateral Resistance 1 lb ankle weights Reps/Minutes 5 reps Comments Alternating, right arm is moving better Backward step Side bilateral Resistance 1 lb ankle weights Reps/Minutes 5 reps Comments Alternating and 2 trials before good form Forward step Side bilateral Resistance 1 lb ankle weights Reps/Minutes 10 reps Comments Alternating, good form, better BIG stance Therapeutic Activity Therapeutic Activity buttoning Name Buttoning Reps/Minutes 4 Comments Three trials: improvements in donning speed of button up flannel shirt: 27 sec, 23 sec, 19 sec. Improvement in doffing speed: 13 sec, 10 sec, 9 sec and pt performing BIG movements Gait Training Gait Activity BIG walking Description 1 lb ankle weights Surface Outside sidewalk, grass, indoor stepsx2 Distance/Duration 30' Treatment Focus Attempted to work on speed, pt has trouble increasing Comments Pt uses manager advertising exercisers for the first 10 minutes of gait to help work on manager advertising. Attempted to use 2 lb ankle weights but he reports fatigue after 5' and so changed to 1 lb ankle weights. Better BIG steps and foot clearance with turns today PT-OP-T Assessment and Plan Start: 06/05/20 15:25 Freq: Status: Active Protocol: Document 06/22/20 14:18 MB (Rec: 06/22/20 15:39 MB [id number]) Physical Therapy Assessment Rehab Potential Rehabilitation Potential Good Evaluation Complexity Number of Personal Factors/Comorbidities 1-2 Number of Body Systems Impaired 1-2 Clinical Presentation at Evaluation Evolving Impairments Impairments Activity Tolerance,Balance, Gait,Posture,ROM Other Impairments Fluctuating BP is a barrier to PT. Goals 5 Molder Machine Goal (LTG) Pt will perform B SLS for 30 sec to improve standing balance for putting on pants by 07/14/2020. LTG Duration 16 treatments 4 Mcfp Goal (LTG) Pt will perform 19 sit to stands in 30 sec without UE support to improve functional strength and transfers by . LTG Duration 16 treatments 3 Molder Machine Goal (LTG) Pt will perform WNLs on FGA reflect improved balance by . LTG Duration 16 treatments 2 Mcfp Goal (LTG) Pt will perform BIG exercises and functional task exercises with I to improve amplitude of movement by 07/14/2020. LTG Duration 16 treatments 1 Molder Machine Goal (LTG) Pt will gait train at least 1600 feet in 6 minutes without AD in order to improve community ambulation by 2019. LTG Duration 16 treatments Assessment Summary Assessment Pt fatigued with gait but was able to continue after doffing 2 lb ankle weights and donning 1 lb weights. His form with exercises continues to improve. Con't balance activities. Physical Therapy Plan Frequency and Duration Frequency of Treatment 4x/Week Duration of Treatment 16 treatments Plan of Care Start Date 06/08/20 Plan of Care End Date 07/14/20 Therapeutic Interventions Therapeutic Interventions Balance Training,Canalithic Repositioning,Coordination Training,Gait Training,Home Exercise Program,Neuromuscular Re-education,Patient/ Caregiver Education,Self-Care/ Home Management,Therapeutic Activities,Therapeutic Exercises Modalities Cold Pack/Ice Massage,Hot Packs Next Visit Focus/Plan Next Note Type Treatment Note Next Visit Plan Con't balance activities next treatment date.
--- NOTE | 2020-06-23 15:48 | PT.OTN ---
Current Diagnoses Parkinson's disease (06/23/20) Physical Therapy Treatment Note PT-OP-A Visit Information Start: 06/05/20 15:25 Freq: Status: Active Protocol: Document 06/23/20 14:16 MB (Rec: 06/23/20 15:48 MB [id number]) Out-Patient Physical Therapy Visit Information Visit Information Visit Type Treatment Note Visit Start Time 14:16 Visit Stop Time 15:16 Total Visit Minutes 60 Visit Number 11 PT-OP-B Current Condition Start: 06/05/20 15:25 Freq: Status: Active Protocol: Document 06/08/20 14:07 MB (Rec: 06/08/20 14:11 MB [id number]) Current Condition History of Current Condition Onset Date Pt first experienced loss of smell 1998 Current Complaints Hypotension, slowness, gait changes History of Current Condition Pt arrives for assessment in preparation to initiate BIG PT course. Pt's initial symptoms of PD were loss of smell in 1998 and erectile dysfunction prior to that. He was diagnosed in 2013. He emotional lability right before his dx. He reports a minor tremor that occurs with fine motor finger movement. PMH includes BPH, non-agressive prostate CA and he takes medication. His current PD symptoms include gait disturbance, hypotension and dizziness. He has pain in the small of his back with hypotension. Pt currently takes Carbidopa- levodopa time release 3 caps four times a day and Rasagiline 1x/day for his PD. His medications help his mobility. Pt had a stroke December 04, 2019. He passed out and his heard him fall. He was unconscious and couldn't talk when he came to. He had a left sided facial droop. He was dx with right MCA infarct. He got TPA and was taken to [facility]. He was put on Eloquist and a statin. Pt underwent mitroclip 2019 for mitral prolapse. 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 Pt lives with his in [place]. He lives in a house. There are no stairs to enter the home. He has 2 steps in the house with 1 rail. He is a retired RT. Pt drives, helps with house cleaning, landscaping and repairs. He does not use AD. He likes to watch TV, RC sail boats, cars and gliders. Pt's current PD symptoms are gait and speed difficulties, hypotension, slowness. His goals are to get more stamina, stronger, better conditioning . Pt is wearing B thigh high compression hose. Pt describes his back discomfort is near his kidneys . Pt likes to walk his small dog on a leash about 20-30 minutes a day. His light- headedness is not dependent on time of day but is dependent on being up. Pt drinks 16 oz of coffee in the morning. He is drinking two alcoholic drinks a day: 1 beer and either 1/2 glass of wine or shot a day. He is drinking 4 8 oz glasses of water or 2 16- 17 oz of carbonated flavored water a day. PT-OP-C Subjective Start: 06/05/20 15:25 Freq: Status: Active Protocol: Document 06/23/20 14:16 MB (Rec: 06/23/20 15:48 MB [id number]) OP-PT Subjective Patient Comments Patient Comments I'm a star! when PT asks pt how he is doing. Pt states that he was able to put his compression hose on in a minute this morning when he used gathering/bunching technique as described by PT last treatment date. PT-OP-D Balance Start: 06/05/20 15:25 Freq: Status: Active Protocol: Document 06/08/20 14:07 MB (Rec: 06/08/20 15:48 MB [id number]) Balance Tests Other Other Balance Tests Performed SLS deferred today d/t pt is orthostatic with moving to standing PT-OP-G Mobility & Gait Start: 06/05/20 15:25 Freq: Status: Active Protocol: Document 06/08/20 14:07 MB (Rec: 06/08/20 15:48 MB [id number]) OP Gait Assessment Gait Gait Assistance Required: Independent Distance (Feet) 75 Assistive Devices Assistive Device None Gait Deviations General Gait Pattern Decreased Feet Clearance Comments Gait Comments Pt presents with increased right greater than left knee flexion with weight acceptance with gait. His right LE appears functionally longer than the left with gait. He presents with right greater than left foot scuffing with gait and presents with overpronation right foot with gait. PT-OP-M Strength Start: 06/05/20 15:25 Freq: Status: Active Protocol: Document 06/08/20 14:07 MB (Rec: 06/08/20 15:48 MB [id number]) Shoulder Strength Shoulder Manual Muscle Testing B Flexion 5 Normal Abduction (C5) 5 Normal Elbow/Forearm Strength Elbow and Forearm Manual Muscle Testing B Flexion (C6) 5 Normal Extension (C7) 5 Normal Hip Strength Hip Manual Muscle Testing Left Flexion (L2) 5 Normal Abduction 5 Normal Right Flexion (L2) 4 Good Abduction 4 Good Knee Strength Knee Manual Muscle Testing Left Extension (L3) 5 Normal Right Extension (L3) 5 Normal Ankle/Foot Strength Ankle and Foot Manual Muscle Testing Left Dorsiflexion (L4) 5 Normal Right Dorsiflexion (L4) 5 Normal Toe Strength Toe Manual Muscle Testing Left Great Toe Extension 5 Normal Right Great Toe Extension 4 Good PT-OP-Q Treatments Start: 06/05/20 15:25 Freq: Status: Active Protocol: Document 06/23/20 14:16 MB (Rec: 06/23/20 15:48 MB [id number]) Therapeutic Exercises Sitting Exercises Side to side Side bilateral Resistance 1 lb wrist weights Equipment Used Gym table in room, raised less today Reps/Minutes 5 reps Comments Cues for BIG back leg, alternating, flicks Floor to ceiling Resistance 1 lb wrist weights Equipment Used Gym table in room, raised less today Reps/Minutes 5 reps Comments Flicks BIG sit to stands Resistance 1 lb wrist weights Equipment Used Gym table in room, raised less today Reps/Minutes 15 Standing Exercises Sideways rock and reach Side bilateral Resistance 1 lb wrist weights Reps/Minutes 5 reps Comments Alternating, much improved today Forward rock and reach Side bilateral Resistance 1 lb wrist weights Reps/Minutes 10 Comments Better BIG stance today, much improved Side step Side bilateral Resistance 1 lb wrist weights Reps/Minutes 5 reps Comments Alternating, right arm is moving better Backward step Side bilateral Resistance 1 lb wrist weights Reps/Minutes 5 reps Comments Improved performance today Forward step Side bilateral Resistance 1 lb wrist weights Reps/Minutes 10 reps Comments Alternating, good form, better BIG stance Therapeutic Activity Therapeutic Activity SLS, weight shift side to side and then knee tap opposite hand on golf club Name SLS, Tandem Reps/Minutes 8 Comments In corner today, several reps of tandem, much more difficult with right foot behind and pt presents with functionally shorter right leg and left iliac crest higher than the right. Pt requires PT to lightly hold onto gait belt throughout exercise. Unable to perform SLS well enough B to consider it a good exercise Gait Training Gait Activity BIG walking Description 1 lb ankle weights Surface Inside, carpet and tile Distance/Duration 15' Treatment Focus Quickening jo) Comments Pt responds well to metronome for jo with BPM 109 and pt reports fatigue. He requires one short rest break and then continues for the rest of gait [id number] Comments Today, pt gaits .47 miles in 10' 19 sec, which equals 1,443 feet in 6 minutes PT-OP-T Assessment and Plan Start: 06/05/20 15:25 Freq: Status: Active Protocol: Document 06/23/20 14:16 MB (Rec: 06/23/20 15:48 MB [id number]) Physical Therapy Assessment Rehab Potential Rehabilitation Potential Good Evaluation Complexity Number of Personal Factors/Comorbidities 1-2 Number of Body Systems Impaired 1-2 Clinical Presentation at Evaluation Evolving Impairments Impairments Activity Tolerance,Balance, Gait,Posture,ROM Other Impairments Fluctuating BP is a barrier to PT. Goals 6 Inclusion Intern Goal (LTG) Pt will perform B Tandem for 30 sec to improve standing balance for dressing by 2019. LTG Duration 5 treatments 5 Inclusion Intern Goal (LTG) Pt will perform B SLS for 30 sec to improve standing balance for putting on pants by 07/14/2020. 06/23/2020: Pt has not progressed towards this goal, will d/c and add tandem standing goal LTG Duration 5 treatments 4 Mcfp Goal (LTG) Pt will perform 19 sit to stands in 30 sec without UE support to improve functional strength and transfers by . 06/23/2020: Pt performs 15 reps BIG sit to stand slowly but steadily LTG Duration 5 treatments 3 Inclusion Intern Goal (LTG) Pt will perform WNLs on FGA reflect improved balance by . 06/23/2020: Deferred today in preference to improve jo and gait distance in shorter time LTG Duration 5 treatments 2 Inclusion Intern Goal (LTG) Pt will perform BIG exercises and functional task exercises with I to improve amplitude of movement by 07/14/2020. 06/23/2020: Pt is performing BIG HEP well, is not taking BIG walks twice a day and is walking dog LTG Duration 5 treatments 1 Mcfp Goal (LTG) Pt will gait train at least 1600 feet in 6 minutes without AD in order to improve community ambulation by 2019. 06/23/2020: Progressing well towards this goal--1443 feet today LTG Duration 5 treatments Progress Towards Goals Progress Towards Goals Progressing Toward Goals Assessment Summary Assessment Pt fatigued with gait but was able to continue after doffing 2 lb ankle weights and donning 1 lb weights. His form with exercises continues to improve. Con't balance activities. Physical Therapy Plan Frequency and Duration Frequency of Treatment 4x/Week Duration of Treatment 16 treatments Plan of Care Start Date 06/08/20 Plan of Care End Date 07/14/20 Therapeutic Interventions Therapeutic Interventions Balance Training,Canalithic Repositioning,Coordination Training,Gait Training,Home Exercise Program,Neuromuscular Re-education,Patient/ Caregiver Education,Self-Care/ Home Management,Therapeutic Activities,Therapeutic Exercises Modalities Cold Pack/Ice Massage,Hot Packs Next Visit Focus/Plan Next Note Type Treatment Note Next Visit Plan Con't jo training ( increasing speed with BIG form , 109 BPM for longer time next treatment date)
--- NOTE | 2020-06-24 17:05 | PT.OTN ---
Current Diagnoses Parkinson's disease (06/24/20) Physical Therapy Treatment Note PT-OP-A Visit Information Start: 06/05/20 15:25 Freq: Status: Active Protocol: Document 06/24/20 14:02 AW (Rec: 06/24/20 17:05 AW [id number]) Out-Patient Physical Therapy Visit Information Visit Information Visit Type Treatment Note Visit Start Time 14:14 Visit Stop Time 15:15 Total Visit Minutes 61 Visit Number 12 Evaluation Information Evaluation Date 06/08/20 PT-OP-B Current Condition Start: 06/05/20 15:25 Freq: Status: Active Protocol: Document 06/08/20 14:07 MB (Rec: 06/08/20 14:11 MB [id number]) Current Condition History of Current Condition Onset Date Pt first experienced loss of smell 1998 Current Complaints Hypotension, slowness, gait changes History of Current Condition Pt arrives for assessment in preparation to initiate BIG PT course. Pt's initial symptoms of PD were loss of smell in 1998 and erectile dysfunction prior to that. He was diagnosed in 2013. He emotional lability right before his dx. He reports a minor tremor that occurs with fine motor finger movement. PMH includes BPH, non-agressive prostate CA and he takes medication. His current PD symptoms include gait disturbance, hypotension and dizziness. He has pain in the small of his back with hypotension. Pt currently takes Carbidopa- levodopa time release 3 caps four times a day and Rasagiline 1x/day for his PD. His medications help his mobility. Pt had a stroke December 04, 2019. He passed out and his heard him fall. He was unconscious and couldn't talk when he came to. He had a left sided facial droop. He was dx with right MCA infarct. He got TPA and was taken to [facility]. He was put on Eloquist and a statin. Pt underwent mitroclip 2019 for mitral prolapse. 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 Pt lives with his in [place]. He lives in a house. There are no stairs to enter the home. He has 2 steps in the house with 1 rail. He is a retired RT. Pt drives, helps with house cleaning, landscaping and repairs. He does not use AD. He likes to watch TV, RC sail boats, cars and gliders. Pt's current PD symptoms are gait and speed difficulties, hypotension, slowness. His goals are to get more stamina, stronger, better conditioning . Pt is wearing B thigh high compression hose. Pt describes his back discomfort is near his kidneys . Pt likes to walk his small dog on a leash about 20-30 minutes a day. His light- headedness is not dependent on time of day but is dependent on being up. Pt drinks 16 oz of coffee in the morning. He is drinking two alcoholic drinks a day: 1 beer and either 1/2 glass of wine or shot a day. He is drinking 4 8 oz glasses of water or 2 16- 17 oz of carbonated flavored water a day. PT-OP-C Subjective Start: 06/05/20 15:25 Freq: Status: Active Protocol: Document 06/24/20 14:02 AW (Rec: 06/24/20 15:17 AW [id number]) OP-PT Subjective Patient Comments Patient Comments Looking forward to Thanksgiving PT-OP-D Balance Start: 06/05/20 15:25 Freq: Status: Active Protocol: Document 06/08/20 14:07 MB (Rec: 06/08/20 15:48 MB [id number]) Balance Tests Other Other Balance Tests Performed SLS deferred today d/t pt is orthostatic with moving to standing PT-OP-G Mobility & Gait Start: 06/05/20 15:25 Freq: Status: Active Protocol: Document 06/08/20 14:07 MB (Rec: 06/08/20 15:48 MB [id number]) OP Gait Assessment Gait Gait Assistance Required: Independent Distance (Feet) 75 Assistive Devices Assistive Device None Gait Deviations General Gait Pattern Decreased Feet Clearance Comments Gait Comments Pt presents with increased right greater than left knee flexion with weight acceptance with gait. His right LE appears functionally longer than the left with gait. He presents with right greater than left foot scuffing with gait and presents with overpronation right foot with gait. PT-OP-M Strength Start: 06/05/20 15:25 Freq: Status: Active Protocol: Document 06/08/20 14:07 MB (Rec: 06/08/20 15:48 MB [id number]) Shoulder Strength Shoulder Manual Muscle Testing B Flexion 5 Normal Abduction (C5) 5 Normal Elbow/Forearm Strength Elbow and Forearm Manual Muscle Testing B Flexion (C6) 5 Normal Extension (C7) 5 Normal Hip Strength Hip Manual Muscle Testing Left Flexion (L2) 5 Normal Abduction 5 Normal Right Flexion (L2) 4 Good Abduction 4 Good Knee Strength Knee Manual Muscle Testing Left Extension (L3) 5 Normal Right Extension (L3) 5 Normal Ankle/Foot Strength Ankle and Foot Manual Muscle Testing Left Dorsiflexion (L4) 5 Normal Right Dorsiflexion (L4) 5 Normal Toe Strength Toe Manual Muscle Testing Left Great Toe Extension 5 Normal Right Great Toe Extension 4 Good PT-OP-Q Treatments Start: 06/05/20 15:25 Freq: Status: Active Protocol: Document 06/24/20 14:02 AW (Rec: 06/24/20 15:17 AW [id number]) Therapeutic Exercises Sitting Exercises Side to side Side bilateral Resistance 1 lb wrist weights Equipment Used Gym table in room, raised less today Reps/Minutes 5 reps Comments Cues for BIG back leg, flicks; no demop Floor to ceiling Resistance 1 lb wrist weights Equipment Used Gym table in room, raised less today Reps/Minutes 5 reps Comments Flicks; uncued/no demo; good uncued rotation and self- correct in posture BIG sit to stands Resistance 1 lb wrist weights Equipment Used Gym table in room, raised less today Reps/Minutes 15 Standing Exercises Sideways rock and reach Side bilateral Resistance 1 lb wrist weights Reps/Minutes 8 reps Comments cues for gaze fixed higher ( not at ground) Forward rock and reach Side bilateral Resistance 1 lb wrist weights Reps/Minutes 10 Comments improved weight shifting and self-correction with bigger arms Side step Side bilateral Resistance 1 lb wrist weights Reps/Minutes 8 reps Comments Alternating, right arm is moving better Backward step Side bilateral Resistance 1 lb wrist weights Reps/Minutes 8 reps Comments uncued/no demo Forward step Side bilateral Resistance 1 lb wrist weights Reps/Minutes 10 reps Comments Alternating, good form, better BIG stance; uncued/no demo Therapeutic Activity Therapeutic Activity SLS, weight shift side to side and then knee tap opposite hand on golf club Name Tandem stance Reps/Minutes 10 Comments semi-tandem stance with head turns and EC. Pt unable to achieve tandem stance without assist but feels appropriately challenged in semi-tandem. He is even able to narrow his MARISOL in semi-tandem. buttoning Name zipper Reps/Minutes 3 Comments Pt struggled with zipper upon arrival. Using techniques he has learned in BIG, he was able to grasp and zip his zipper in less time and with greater confidence. Gait Training Gait Activity BIG walking Surface Outside Distance/Duration 25' Treatment Focus jo Comments Set metronome to 109 bpm and pt walked on sidewalk up slight incline. He needed a rest break due to SOB but was able to continue 15 more minutes at 105 bpm. Also practiced walking around parking blocks in figure 8 pattern with metronome. PT-OP-T Assessment and Plan Start: 06/05/20 15:25 Freq: Status: Active Protocol: Document 06/24/20 14:02 AW (Rec: 06/24/20 17:05 AW [id number]) Physical Therapy Assessment Rehab Potential Rehabilitation Potential Good Evaluation Complexity Number of Personal Factors/Comorbidities 1-2 Number of Body Systems Impaired 1-2 Clinical Presentation at Evaluation Evolving Impairments Impairments Activity Tolerance,Balance, Gait,Posture,ROM Other Impairments Fluctuating BP is a barrier to PT. Goals 6 Tester [employer] Goal (LTG) Pt will perform B Tandem for 30 sec to improve standing balance for dressing by 2019. LTG Duration 5 treatments 4 Longterm Goal (LTG) Pt will perform 19 sit to stands in 30 sec without UE support to improve functional strength and transfers by . 06/23/2020: Pt performs 15 reps BIG sit to stand slowly but steadily LTG Duration 5 treatments 3 Tester [employer] Goal (LTG) Pt will perform WNLs on FGA reflect improved balance by . 06/23/2020: Deferred today in preference to improve jo and gait distance in shorter time LTG Duration 5 treatments 2 Longterm Goal (LTG) Pt will perform BIG exercises and functional task exercises with I to improve amplitude of movement by 07/14/2020. 06/23/2020: Pt is performing BIG HEP well, is not taking BIG walks twice a day and is walking dog LTG Duration 5 treatments 1 Tester [employer] Goal (LTG) Pt will gait train at least 1600 feet in 6 minutes without AD in order to improve community ambulation by 2019. 06/23/2020: Progressing well towards this goal--1443 feet today LTG Duration 5 treatments Assessment Summary Assessment No ankle weights used for gait outside today. Focused on jo with pt unable to sustain 109 bpm on a slight incline. He was limited by SOB but recovered and was able to continue at 105 bpm on the decline. All exercises today were completed without demonstration. Pt shows a good degree of self-correction indicating calibration effect. Physical Therapy Plan Frequency and Duration Frequency of Treatment 4x/Week Duration of Treatment 16 treatments Plan of Care Start Date 06/08/20 Plan of Care End Date 07/14/20 Therapeutic Interventions Therapeutic Interventions Balance Training,Canalithic Repositioning,Coordination Training,Gait Training,Home Exercise Program,Neuromuscular Re-education,Patient/ Caregiver Education,Self-Care/ Home Management,Therapeutic Activities,Therapeutic Exercises Modalities Cold Pack/Ice Massage,Hot Packs Next Visit Focus/Plan Next Note Type Treatment Note Next Visit Plan jo training, balance, functional activities
--- NOTE | 2020-06-29 15:46 | PT.OTN ---
Current Diagnoses Parkinson's disease (06/29/20) Physical Therapy Treatment Note PT-OP-A Visit Information Start: 06/05/20 15:25 Freq: Status: Active Protocol: Document 06/29/20 14:17 MB (Rec: 06/29/20 15:46 MB [id number]) Out-Patient Physical Therapy Visit Information Visit Information Visit Type Treatment Note Visit Start Time 14:17 Visit Stop Time 15:19 Total Visit Minutes 62 Visit Number 13 PT-OP-B Current Condition Start: 06/05/20 15:25 Freq: Status: Active Protocol: Document 06/08/20 14:07 MB (Rec: 06/08/20 14:11 MB [id number]) Current Condition History of Current Condition Onset Date Pt first experienced loss of smell 1998 Current Complaints Hypotension, slowness, gait changes History of Current Condition Pt arrives for assessment in preparation to initiate BIG PT course. Pt's initial symptoms of PD were loss of smell in 1998 and erectile dysfunction prior to that. He was diagnosed in 2013. He emotional lability right before his dx. He reports a minor tremor that occurs with fine motor finger movement. PMH includes BPH, non-agressive prostate CA and he takes medication. His current PD symptoms include gait disturbance, hypotension and dizziness. He has pain in the small of his back with hypotension. Pt currently takes Carbidopa- levodopa time release 3 caps four times a day and Rasagiline 1x/day for his PD. His medications help his mobility. Pt had a stroke December 04, 2019. He passed out and his heard him fall. He was unconscious and couldn't talk when he came to. He had a left sided facial droop. He was dx with right MCA infarct. He got TPA and was taken to [facility]. He was put on Eloquist and a statin. Pt underwent mitroclip 2019 for mitral prolapse. 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 Pt lives with his in [place]. He lives in a house. There are no stairs to enter the home. He has 2 steps in the house with 1 rail. He is a retired RT. Pt drives, helps with house cleaning, landscaping and repairs. He does not use AD. He likes to watch TV, RC sail boats, cars and gliders. Pt's current PD symptoms are gait and speed difficulties, hypotension, slowness. His goals are to get more stamina, stronger, better conditioning . Pt is wearing B thigh high compression hose. Pt describes his back discomfort is near his kidneys . Pt likes to walk his small dog on a leash about 20-30 minutes a day. His light- headedness is not dependent on time of day but is dependent on being up. Pt drinks 16 oz of coffee in the morning. He is drinking two alcoholic drinks a day: 1 beer and either 1/2 glass of wine or shot a day. He is drinking 4 8 oz glasses of water or 2 16- 17 oz of carbonated flavored water a day. PT-OP-C Subjective Start: 06/05/20 15:25 Freq: Status: Active Protocol: Document 06/29/20 14:17 MB (Rec: 06/29/20 15:46 MB [id number]) OP-PT Subjective Patient Comments Patient Comments I'm glad I did the BIG therapy and not the cardiac rehab. PT-OP-D Balance Start: 06/05/20 15:25 Freq: Status: Active Protocol: Document 06/08/20 14:07 MB (Rec: 06/08/20 15:48 MB [id number]) Balance Tests Other Other Balance Tests Performed SLS deferred today d/t pt is orthostatic with moving to standing PT-OP-G Mobility & Gait Start: 06/05/20 15:25 Freq: Status: Active Protocol: Document 06/08/20 14:07 MB (Rec: 06/08/20 15:48 MB [id number]) OP Gait Assessment Gait Gait Assistance Required: Independent Distance (Feet) 75 Assistive Devices Assistive Device None Gait Deviations General Gait Pattern Decreased Feet Clearance Comments Gait Comments Pt presents with increased right greater than left knee flexion with weight acceptance with gait. His right LE appears functionally longer than the left with gait. He presents with right greater than left foot scuffing with gait and presents with overpronation right foot with gait. PT-OP-M Strength Start: 06/05/20 15:25 Freq: Status: Active Protocol: Document 06/08/20 14:07 MB (Rec: 06/08/20 15:48 MB [id number]) Shoulder Strength Shoulder Manual Muscle Testing B Flexion 5 Normal Abduction (C5) 5 Normal Elbow/Forearm Strength Elbow and Forearm Manual Muscle Testing B Flexion (C6) 5 Normal Extension (C7) 5 Normal Hip Strength Hip Manual Muscle Testing Left Flexion (L2) 5 Normal Abduction 5 Normal Right Flexion (L2) 4 Good Abduction 4 Good Knee Strength Knee Manual Muscle Testing Left Extension (L3) 5 Normal Right Extension (L3) 5 Normal Ankle/Foot Strength Ankle and Foot Manual Muscle Testing Left Dorsiflexion (L4) 5 Normal Right Dorsiflexion (L4) 5 Normal Toe Strength Toe Manual Muscle Testing Left Great Toe Extension 5 Normal Right Great Toe Extension 4 Good PT-OP-Q Treatments Start: 06/05/20 15:25 Freq: Status: Active Protocol: Document 06/29/20 14:17 MB (Rec: 06/29/20 15:46 MB [id number]) Therapeutic Exercises Sitting Exercises Side to side Side bilateral Resistance 1 lb wrist weights Equipment Used Gym table in room, raised less today Reps/Minutes 5 reps Comments Cues for BIG back leg, flicks; no demop Floor to ceiling Resistance 1 lb wrist weights Equipment Used Gym table in room, raised less today Reps/Minutes 5 reps Comments Flicks; uncued/no demo; good uncued rotation and self- correct in posture BIG sit to stands Resistance 1 lb wrist weights Equipment Used Gym table in room, raised less today Reps/Minutes 15 Standing Exercises Sideways rock and reach Side bilateral Resistance 1 lb wrist weights Reps/Minutes 5 reps Comments Cues to keep arms shoulder height Forward rock and reach Side bilateral Resistance 1 lb wrist weights Reps/Minutes 5 reps Comments Improved stance distance Side step Side bilateral Resistance 1 lb wrist weights Reps/Minutes 7 reps Comments Alternating, improved form Backward step Side bilateral Resistance 1 lb wrist weights Reps/Minutes 5 reps Comments Performs better today Forward step Side bilateral Resistance 1 lb wrist weights Reps/Minutes 10 reps Comments Alternating, cues to keep BIG stance Therapeutic Activity Therapeutic Activity SLS, weight shift side to side and then knee tap opposite hand on golf club Name Balance exercises Reps/Minutes 8 Comments Single leg lift/hip flexion x4 reps each leg alternating. Jrberg, advance to EC up to 1 min 20 sec, 1 lb ankle weights on. Semi tandem with right foot behind up to 10 sec and closer tandem position for left foot behing. Pt in corner, UE support to prevent fall Gait Training Gait Activity BIG walking Device Used 1 lb ankle weights Surface Outside, then inside Distance/Duration 30' Treatment Focus Jo Comments Set metronome to 109 BPM and then to 106 BPM and pt cannot maintain jo up slight incline on side walk. He reports MALONEY, denies pain and light-headedness. Wind is high and so returned inside. Pt con't to have trouble keeping up jo inside, and this is more challenging with increasing gait time. PT-OP-T Assessment and Plan Start: 06/05/20 15:25 Freq: Status: Active Protocol: Document 06/29/20 14:17 MB (Rec: 06/29/20 15:46 MB [id number]) Physical Therapy Assessment Rehab Potential Rehabilitation Potential Good Evaluation Complexity Number of Personal Factors/Comorbidities 1-2 Number of Body Systems Impaired 1-2 Clinical Presentation at Evaluation Evolving Impairments Impairments Activity Tolerance,Balance, Gait,Posture,ROM Other Impairments Fluctuating BP is a barrier to PT. Goals 6 Long-Term Goal (LTG) Pt will perform B Tandem for 30 sec to improve standing balance for dressing by 2019. LTG Duration 5 treatments 4 Long-Term Goal (LTG) Pt will perform 19 sit to stands in 30 sec without UE support to improve functional strength and transfers by . 06/23/2020: Pt performs 15 reps BIG sit to stand slowly but steadily LTG Duration 5 treatments 3 Show Jumping Instructor Goal (LTG) Pt will perform WNLs on FGA reflect improved balance by . 06/23/2020: Deferred today in preference to improve jo and gait distance in shorter time LTG Duration 5 treatments 2 Show Jumping Instructor Goal (LTG) Pt will perform BIG exercises and functional task exercises with I to improve amplitude of movement by 07/14/2020. 06/23/2020: Pt is performing BIG HEP well, is not taking BIG walks twice a day and is walking dog LTG Duration 5 treatments 1 Long-Term Goal (LTG) Pt will gait train at least 1600 feet in 6 minutes without AD in order to improve community ambulation by 2019. 06/23/2020: Progressing well towards this goal--1443 feet today LTG Duration 5 treatments Assessment Summary Assessment Pt con't to have trouble maintaining 106-109 BPM jo on slight incline outside and with flat surfaces in the clinic, and this is more troublesome with increased time. Pt does have recent cardiac surgery and today he reports that he had old cerebellar infarcts. Cardiac surgery may be a part of his trouble keeping gait speed up with slight incline. Con't to work on balance. Physical Therapy Plan Frequency and Duration Frequency of Treatment 4x/Week Duration of Treatment 16 treatments Plan of Care Start Date 06/08/20 Plan of Care End Date 07/14/20 Therapeutic Interventions Therapeutic Interventions Balance Training,Canalithic Repositioning,Coordination Training,Gait Training,Home Exercise Program,Neuromuscular Re-education,Patient/ Caregiver Education,Self-Care/ Home Management,Therapeutic Activities,Therapeutic Exercises Modalities Cold Pack/Ice Massage,Hot Packs Next Visit Focus/Plan Next Note Type Treatment Note Next Visit Plan Jo work, balance
--- NOTE | 2020-07-01 15:38 | PT.OTN ---
Current Diagnoses Parkinson's disease (07/01/20) Physical Therapy Treatment Note PT-OP-A Visit Information Start: 06/05/20 15:25 Freq: Status: Active Protocol: Document 07/01/20 15:16 AW (Rec: 07/01/20 15:38 AW [id number]) Out-Patient Physical Therapy Visit Information Visit Information Visit Type Treatment Note Visit Start Time 14:14 Visit Stop Time 15:14 Total Visit Minutes 60 Visit Number 15 Evaluation Information Evaluation Date 06/08/20 PT-OP-B Current Condition Start: 06/05/20 15:25 Freq: Status: Active Protocol: Document 06/08/20 14:07 MB (Rec: 06/08/20 14:11 MB [id number]) Current Condition History of Current Condition Onset Date Pt first experienced loss of smell 1998 Current Complaints Hypotension, slowness, gait changes History of Current Condition Pt arrives for assessment in preparation to initiate BIG PT course. Pt's initial symptoms of PD were loss of smell in 1998 and erectile dysfunction prior to that. He was diagnosed in 2013. He emotional lability right before his dx. He reports a minor tremor that occurs with fine motor finger movement. PMH includes BPH, non-agressive prostate CA and he takes medication. His current PD symptoms include gait disturbance, hypotension and dizziness. He has pain in the small of his back with hypotension. Pt currently takes Carbidopa- levodopa time release 3 caps four times a day and Rasagiline 1x/day for his PD. His medications help his mobility. Pt had a stroke December 04, 2019. He passed out and his heard him fall. He was unconscious and couldn't talk when he came to. He had a left sided facial droop. He was dx with right MCA infarct. He got TPA and was taken to [facility]. He was put on Eloquist and a statin. Pt underwent mitroclip 2019 for mitral prolapse. 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 Pt lives with his in [place]. He lives in a house. There are no stairs to enter the home. He has 2 steps in the house with 1 rail. He is a retired RT. Pt drives, helps with house cleaning, landscaping and repairs. He does not use AD. He likes to watch TV, [place] sail boats, cars and gliders. Pt's current PD symptoms are gait and speed difficulties, hypotension, slowness. His goals are to get more stamina, stronger, better conditioning . Pt is wearing B thigh high compression hose. Pt describes his back discomfort is near his kidneys . Pt likes to walk his small dog on a leash about 20-30 minutes a day. His light- headedness is not dependent on time of day but is dependent on being up. Pt drinks 16 oz of coffee in the morning. He is drinking two alcoholic drinks a day: 1 beer and either 1/2 glass of wine or shot a day. He is drinking 4 8 oz glasses of water or 2 16- 17 oz of carbonated flavored water a day. PT-OP-C Subjective Start: 06/05/20 15:25 Freq: Status: Active Protocol: Document 07/01/20 15:16 AW (Rec: 07/01/20 15:38 AW [id number]) OP-PT Subjective Patient Comments Patient Comments I called my supervisor dairy sanitation and they are sending me a monitor to wear for two weeks. PT-OP-D Balance Start: 06/05/20 15:25 Freq: Status: Active Protocol: Document 06/08/20 14:07 MB (Rec: 06/08/20 15:48 MB [id number]) Balance Tests Other Other Balance Tests Performed SLS deferred today d/t pt is orthostatic with moving to standing PT-OP-G Mobility & Gait Start: 06/05/20 15:25 Freq: Status: Active Protocol: Document 06/08/20 14:07 MB (Rec: 06/08/20 15:48 MB [id number]) OP Gait Assessment Gait Gait Assistance Required: Independent Distance (Feet) 75 Assistive Devices Assistive Device None Gait Deviations General Gait Pattern Decreased Feet Clearance Comments Gait Comments Pt presents with increased right greater than left knee flexion with weight acceptance with gait. His right LE appears functionally longer than the left with gait. He presents with right greater than left foot scuffing with gait and presents with overpronation right foot with gait. PT-OP-M Strength Start: 06/05/20 15:25 Freq: Status: Active Protocol: Document 06/08/20 14:07 MB (Rec: 06/08/20 15:48 MB [id number]) Shoulder Strength Shoulder Manual Muscle Testing B Flexion 5 Normal Abduction (C5) 5 Normal Elbow/Forearm Strength Elbow and Forearm Manual Muscle Testing B Flexion (C6) 5 Normal Extension (C7) 5 Normal Hip Strength Hip Manual Muscle Testing Left Flexion (L2) 5 Normal Abduction 5 Normal Right Flexion (L2) 4 Good Abduction 4 Good Knee Strength Knee Manual Muscle Testing Left Extension (L3) 5 Normal Right Extension (L3) 5 Normal Ankle/Foot Strength Ankle and Foot Manual Muscle Testing Left Dorsiflexion (L4) 5 Normal Right Dorsiflexion (L4) 5 Normal Toe Strength Toe Manual Muscle Testing Left Great Toe Extension 5 Normal Right Great Toe Extension 4 Good PT-OP-Q Treatments Start: 06/05/20 15:25 Freq: Status: Active Protocol: Document 07/01/20 15:16 AW (Rec: 07/01/20 15:38 AW [id number]) Therapeutic Exercises Sitting Exercises Side to side Side bilateral Resistance 1 lb wrist weights Equipment Used Gym table in room Reps/Minutes 8 reps each direction Comments flicks; no demo Floor to ceiling Resistance 1 lb wrist weights Equipment Used Gym table in room Reps/Minutes 10 reps Comments Flicks; uncued/no demo; good uncued rotation and self- correct in posture BIG sit to stands Resistance 1 lb wrist weights Equipment Used exam room chair with hip at 90 degrees Reps/Minutes 10 Comments arms crossed over chest Standing Exercises Sideways rock and reach Side bilateral Resistance 1 lb wrist weights Reps/Minutes 5 reps Comments improved awareness of both arms Forward rock and reach Side bilateral Resistance 1 lb wrist weights Reps/Minutes 5 reps Comments improved bilateral arm swing Side step Side bilateral Resistance 1 lb wrist weights Reps/Minutes 8 reps Comments self-correction observed in rotation Backward step Side bilateral Resistance 1 lb wrist weights Reps/Minutes 8 reps Comments balance significantly improved this date Forward step Side bilateral Resistance 1 lb wrist weights Reps/Minutes 10 reps Comments Alternating, verbal cues for increased effort Therapeutic Activity Therapeutic Activity SLS, weight shift side to side and then knee tap opposite hand on golf club Name Balance exercises Reps/Minutes 8 Comments semi tandem stance with fore foot toes adjacent to aft heel in parallel bars with fading fingertip support and verbal cues for gaze fixation. Also with head turns Gait Training Gait Activity BIG walking Device Used Pt's own 1 lb ankle weights Level of Assistance SBA Surface Sidewalk, around parking blocks, slight incline, grass Distance/Duration 21' Treatment Focus Jo with metronome, assess vitals with exertion Comments Vitals sitting before gait (BP right brachial and pulse ox on left 2nd digit for all measurements during treatment) : 69 BPM, sats 99%, BP 142/88. Metronome set to 105-112 BPM the whole gait trial. Pt able to maintain jo (105) on flat terrain and tolerated increase in figure eight turns around parking blocks at 112 bpm. Gait training was then undertaken without consideration for jo and focus switching to step length up slight incline. BP at top of incline was 109/58 and HR 80. Jo was re-established at 109 bpm for return trip which pt was able to maintain. BP on return to exam room was 142/79 HR 91. SpO2 was 98-99% throughout. PT-OP-T Assessment and Plan Start: 06/05/20 15:25 Freq: Status: Active Protocol: Document 07/01/20 15:16 AW (Rec: 07/01/20 15:38 AW [id number]) Physical Therapy Assessment Rehab Potential Rehabilitation Potential Good Evaluation Complexity Number of Personal Factors/Comorbidities 1-2 Number of Body Systems Impaired 1-2 Clinical Presentation at Evaluation Evolving Impairments Impairments Activity Tolerance,Balance, Gait,Posture,ROM Other Impairments Fluctuating BP is a barrier to PT. Goals 6 Detention Goal (LTG) Pt will perform B Tandem for 30 sec to improve standing balance for dressing by 2019. LTG Duration 5 treatments 4 Cmm Programmer Goal (LTG) Pt will perform 19 sit to stands in 30 sec without UE support to improve functional strength and transfers by . 06/23/2020: Pt performs 15 reps BIG sit to stand slowly but steadily LTG Duration 5 treatments 3 Cmm Programmer Goal (LTG) Pt will perform WNLs on FGA reflect improved balance by . 06/23/2020: Deferred today in preference to improve jo and gait distance in shorter time LTG Duration 5 treatments 2 Detention Goal (LTG) Pt will perform BIG exercises and functional task exercises with I to improve amplitude of movement by 07/14/2020. 06/23/2020: Pt is performing BIG HEP well, is not taking BIG walks twice a day and is walking dog LTG Duration 5 treatments 1 Detention Goal (LTG) Pt will gait train at least 1600 feet in 6 minutes without AD in order to improve community ambulation by 2019. 06/23/2020: Progressing well towards this goal--1443 feet today LTG Duration 5 treatments Assessment Summary Assessment Pt has consulted his supervisor dairy sanitation and is expecting to wear a monitor for 2 weeks in the near future. Pt is open to cardiac rehab and has a current referral to same. Physical Therapy Plan Frequency and Duration Frequency of Treatment 4x/Week Duration of Treatment 16 treatments Plan of Care Start Date 06/08/20 Plan of Care End Date 07/14/20 Therapeutic Interventions Therapeutic Interventions Balance Training,Canalithic Repositioning,Coordination Training,Gait Training,Home Exercise Program,Neuromuscular Re-education,Patient/ Caregiver Education,Self-Care/ Home Management,Therapeutic Activities,Therapeutic Exercises Modalities Cold Pack/Ice Massage,Hot Packs Next Visit Focus/Plan Next Note Type Treatment Note Next Visit Plan Jo work, balance
--- NOTE | 2020-07-02 15:39 | PT.OTN ---
Current Diagnoses Parkinson's disease (07/02/20) Physical Therapy Treatment Note PT-OP-A Visit Information Start: 06/05/20 15:25 Freq: Status: Active Protocol: Document 07/02/20 14:17 MB (Rec: 07/02/20 15:39 MB [id number]) Out-Patient Physical Therapy Visit Information Visit Information Visit Type Treatment Note Visit Start Time 14:17 Visit Stop Time 15:17 Total Visit Minutes 60 Visit Number 16 PT-OP-B Current Condition Start: 06/05/20 15:25 Freq: Status: Active Protocol: Document 06/08/20 14:07 MB (Rec: 06/08/20 14:11 MB [id number]) Current Condition History of Current Condition Onset Date Pt first experienced loss of smell 1998 Current Complaints Hypotension, slowness, gait changes History of Current Condition Pt arrives for assessment in preparation to initiate BIG PT course. Pt's initial symptoms of PD were loss of smell in 1998 and erectile dysfunction prior to that. He was diagnosed in 2013. He emotional lability right before his dx. He reports a minor tremor that occurs with fine motor finger movement. PMH includes BPH, non-agressive prostate CA and he takes medication. His current PD symptoms include gait disturbance, hypotension and dizziness. He has pain in the small of his back with hypotension. Pt currently takes Carbidopa- levodopa time release 3 caps four times a day and Rasagiline 1x/day for his PD. His medications help his mobility. Pt had a stroke December 04, 2019. He passed out and his heard him fall. He was unconscious and couldn't talk when he came to. He had a left sided facial droop. He was dx with right MCA infarct. He got TPA and was taken to [place]. He was put on Eloquist and a statin. Pt underwent mitroclip 2019 for mitral prolapse. 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 Pt lives with his in [place]. He lives in a house. There are no stairs to enter the home. He has 2 steps in the house with 1 rail. He is a retired RT. Pt drives, helps with house cleaning, landscaping and repairs. He does not use AD. He likes to watch TV, RC sail boats, cars and gliders. Pt's current PD symptoms are gait and speed difficulties, hypotension, slowness. His goals are to get more stamina, stronger, better conditioning . Pt is wearing B thigh high compression hose. Pt describes his back discomfort is near his kidneys . Pt likes to walk his small dog on a leash about 20-30 minutes a day. His light- headedness is not dependent on time of day but is dependent on being up. Pt drinks 16 oz of coffee in the morning. He is drinking two alcoholic drinks a day: 1 beer and either 1/2 glass of wine or shot a day. He is drinking 4 8 oz glasses of water or 2 16- 17 oz of carbonated flavored water a day. PT-OP-C Subjective Start: 06/05/20 15:25 Freq: Status: Active Protocol: Document 07/02/20 14:17 MB (Rec: 07/02/20 15:39 MB [id number]) OP-PT Subjective Patient Comments Patient Comments I brought this today. Pt brings in his BP cuff and machine PT-OP-D Balance Start: 06/05/20 15:25 Freq: Status: Active Protocol: Document 06/08/20 14:07 MB (Rec: 06/08/20 15:48 MB [id number]) Balance Tests Other Other Balance Tests Performed SLS deferred today d/t pt is orthostatic with moving to standing PT-OP-G Mobility & Gait Start: 06/05/20 15:25 Freq: Status: Active Protocol: Document 06/08/20 14:07 MB (Rec: 06/08/20 15:48 MB [id number]) OP Gait Assessment Gait Gait Assistance Required: Independent Distance (Feet) 75 Assistive Devices Assistive Device None Gait Deviations General Gait Pattern Decreased Feet Clearance Comments Gait Comments Pt presents with increased right greater than left knee flexion with weight acceptance with gait. His right LE appears functionally longer than the left with gait. He presents with right greater than left foot scuffing with gait and presents with overpronation right foot with gait. PT-OP-M Strength Start: 06/05/20 15:25 Freq: Status: Active Protocol: Document 06/08/20 14:07 MB (Rec: 06/08/20 15:48 MB [id number]) Shoulder Strength Shoulder Manual Muscle Testing B Flexion 5 Normal Abduction (C5) 5 Normal Elbow/Forearm Strength Elbow and Forearm Manual Muscle Testing B Flexion (C6) 5 Normal Extension (C7) 5 Normal Hip Strength Hip Manual Muscle Testing Left Flexion (L2) 5 Normal Abduction 5 Normal Right Flexion (L2) 4 Good Abduction 4 Good Knee Strength Knee Manual Muscle Testing Left Extension (L3) 5 Normal Right Extension (L3) 5 Normal Ankle/Foot Strength Ankle and Foot Manual Muscle Testing Left Dorsiflexion (L4) 5 Normal Right Dorsiflexion (L4) 5 Normal Toe Strength Toe Manual Muscle Testing Left Great Toe Extension 5 Normal Right Great Toe Extension 4 Good PT-OP-Q Treatments Start: 06/05/20 15:25 Freq: Status: Active Protocol: Document 07/02/20 14:17 MB (Rec: 07/02/20 15:39 MB [id number]) Gait Training Gait Activity BIG walking Device Used Pt's own 1 lb ankle weights Level of Assistance SBA Surface Outside, grass, over curbs, sidewalk Distance/Duration Whole treatment, rest breaks to check vitals and talk about education Treatment Focus Jo to metronome 106 BPM Comments Vitals taken in left brachial and pulse ox on 2nd digit right hand for all measurements during treatment. After 3' gait mild incline 121 /58, 71 4' gait up mild incline 133/68 , 78 10' gait 158/87, 77 After 25' total gait 155/94, 73 At end of gait in sitting 152/ 59 73 Pt requires many standing rest breaks and is able to gait longer between last breaks today and talk while walk. Jo con't to drop with fatigue and walking and cues to keep up the jo by listening to metronome. O2 sats 98-99% throughout treatment. PT-OP-T Assessment and Plan Start: 06/05/20 15:25 Freq: Status: Active Protocol: Document 07/02/20 14:17 MB (Rec: 07/02/20 15:39 MB [id number]) Physical Therapy Assessment Rehab Potential Rehabilitation Potential Good Evaluation Complexity Number of Personal Factors/Comorbidities 1-2 Number of Body Systems Impaired 1-2 Clinical Presentation at Evaluation Evolving Impairments Impairments Activity Tolerance,Balance, Gait,Posture,ROM Other Impairments Fluctuating BP is a barrier to PT. Goals 6 Longterm Goal (LTG) Pt will perform B Tandem for 30 sec to improve standing balance for dressing by 2019. LTG Duration 5 treatments 4 [employer] Goal (LTG) Pt will perform 19 sit to stands in 30 sec without UE support to improve functional strength and transfers by . 06/23/2020: Pt performs 15 reps BIG sit to stand slowly but steadily LTG Duration 5 treatments 3 [employer] Goal (LTG) Pt will perform WNLs on FGA reflect improved balance by . 06/23/2020: Deferred today in preference to improve jo and gait distance in shorter time LTG Duration 5 treatments 2 Longterm Goal (LTG) Pt will perform BIG exercises and functional task exercises with I to improve amplitude of movement by 07/14/2020. 06/23/2020: Pt is performing BIG HEP well, is not taking BIG walks twice a day and is walking dog LTG Duration 5 treatments 1 Longterm Goal (LTG) Pt will gait train at least 1600 feet in 6 minutes without AD in order to improve community ambulation by 2019. 06/23/2020: Progressing well towards this goal--1443 feet today LTG Duration 5 treatments Assessment Summary Assessment Pt to get night monitor in the mail. Gait training with rest breaks today for treatment again to compare gait distance, jo and vitals and his BP steadily increases today with increasing gait distance. His HR con't to remain very in the 70 BPMs and PT manually checks HR in right radial artery. On the final assessment, his pulse is irregular with palpation. Anticipate d/c next treatment date. Pt is doing exercises at home. Encouraged pt to use wrist weights for exercises, ankle weights for walking and to upload metronome to his watch for walking. Physical Therapy Plan Frequency and Duration Frequency of Treatment 4x/Week Duration of Treatment 16 treatments Plan of Care Start Date 06/08/20 Plan of Care End Date 07/14/20 Therapeutic Interventions Therapeutic Interventions Balance Training,Canalithic Repositioning,Coordination Training,Gait Training,Home Exercise Program,Neuromuscular Re-education,Patient/ Caregiver Education,Self-Care/ Home Management,Therapeutic Activities,Therapeutic Exercises Modalities Cold Pack/Ice Massage,Hot Packs Next Visit Focus/Plan Next Note Type Treatment Note Next Visit Plan Jo work, balance
--- NOTE | 2020-07-06 15:38 | PT.OTN ---
Current Diagnoses Parkinson's disease (07/06/20) Physical Therapy Treatment Note PT-OP-A Visit Information Start: 06/05/20 15:25 Freq: Status: Active Protocol: Document 07/06/20 14:15 MB (Rec: 07/06/20 15:09 MB [id number]) Out-Patient Physical Therapy Visit Information Visit Information Visit Type Discharge Summary Visit Start Time 14:15 Visit Stop Time 14:08 Total Visit Minutes 53 Visit Number 17 PT-OP-B Current Condition Start: 06/05/20 15:25 Freq: Status: Active Protocol: Document 06/08/20 14:07 MB (Rec: 06/08/20 14:11 MB [id number]) Current Condition History of Current Condition Onset Date Pt first experienced loss of smell 1998 Current Complaints Hypotension, slowness, gait changes History of Current Condition Pt arrives for assessment in preparation to initiate BIG PT course. Pt's initial symptoms of PD were loss of smell in 1998 and erectile dysfunction prior to that. He was diagnosed in 2013. He emotional lability right before his dx. He reports a minor tremor that occurs with fine motor finger movement. PMH includes BPH, non-agressive prostate CA and he takes medication. His current PD symptoms include gait disturbance, hypotension and dizziness. He has pain in the small of his back with hypotension. Pt currently takes Carbidopa- levodopa time release 3 caps four times a day and Rasagiline 1x/day for his PD. His medications help his mobility. Pt had a stroke December 04, 2019. He passed out and his heard him fall. He was unconscious and couldn't talk when he came to. He had a left sided facial droop. He was dx with right MCA infarct. He got TPA and was taken to [place]. He was put on Eloquist and a statin. Pt underwent mitroclip 2019 for mitral prolapse. 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 Pt lives with his in [place]. He lives in a house. There are no stairs to enter the home. He has 2 steps in the house with 1 rail. He is a retired RT. Pt drives, helps with house cleaning, landscaping and repairs. He does not use AD. He likes to watch TV, [place] sail boats, cars and gliders. Pt's current PD symptoms are gait and speed difficulties, hypotension, slowness. His goals are to get more stamina, stronger, better conditioning . Pt is wearing B thigh high compression hose. Pt describes his back discomfort is near his kidneys . Pt likes to walk his small dog on a leash about 20-30 minutes a day. His light- headedness is not dependent on time of day but is dependent on being up. Pt drinks 16 oz of coffee in the morning. He is drinking two alcoholic drinks a day: 1 beer and either 1/2 glass of wine or shot a day. He is drinking 4 8 oz glasses of water or 2 16- 17 oz of carbonated flavored water a day. PT-OP-C Subjective Start: 06/05/20 15:25 Freq: Status: Active Protocol: Document 07/06/20 14:15 MB (Rec: 07/06/20 15:09 MB [id number]) OP-PT Subjective Patient Comments Patient Comments I called pulmonary rehab and they are going to call me back about scheduling. Pt states that his BIG experience was a positive experience. PT-OP-D Balance Start: 06/05/20 15:25 Freq: Status: Active Protocol: Document 06/08/20 14:07 MB (Rec: 06/08/20 15:48 MB [id number]) Balance Tests Other Other Balance Tests Performed SLS deferred today d/t pt is orthostatic with moving to standing PT-OP-G Mobility & Gait Start: 06/05/20 15:25 Freq: Status: Active Protocol: Document 06/08/20 14:07 MB (Rec: 06/08/20 15:48 MB [id number]) OP Gait Assessment Gait Gait Assistance Required: Independent Distance (Feet) 75 Assistive Devices Assistive Device None Gait Deviations General Gait Pattern Decreased Feet Clearance Comments Gait Comments Pt presents with increased right greater than left knee flexion with weight acceptance with gait. His right LE appears functionally longer than the left with gait. He presents with right greater than left foot scuffing with gait and presents with overpronation right foot with gait. PT-OP-M Strength Start: 06/05/20 15:25 Freq: Status: Active Protocol: Document 06/08/20 14:07 MB (Rec: 06/08/20 15:48 MB [id number]) Shoulder Strength Shoulder Manual Muscle Testing B Flexion 5 Normal Abduction (C5) 5 Normal Elbow/Forearm Strength Elbow and Forearm Manual Muscle Testing B Flexion (C6) 5 Normal Extension (C7) 5 Normal Hip Strength Hip Manual Muscle Testing Left Flexion (L2) 5 Normal Abduction 5 Normal Right Flexion (L2) 4 Good Abduction 4 Good Knee Strength Knee Manual Muscle Testing Left Extension (L3) 5 Normal Right Extension (L3) 5 Normal Ankle/Foot Strength Ankle and Foot Manual Muscle Testing Left Dorsiflexion (L4) 5 Normal Right Dorsiflexion (L4) 5 Normal Toe Strength Toe Manual Muscle Testing Left Great Toe Extension 5 Normal Right Great Toe Extension 4 Good PT-OP-Q Treatments Start: 06/05/20 15:25 Freq: Status: Active Protocol: Document 07/06/20 14:15 MB (Rec: 07/06/20 15:37 MB [id number]) Therapeutic Exercises Sitting Exercises Side to side Comments Reviewed form and flicks for HEP Floor to ceiling Comments Reviewed forward reach and flicks for HEP BIG sit to stands Comments Reviewed form reaching forward and not downward for exercises for HEP Sit to stands Comments 18.5 without UE support in 30 sec (standing when alarm beeps ) Standing Exercises Sideways rock and reach Comments Reviewed to keep arms up for HEP performance Forward rock and reach Comments Reviewed BIG stance width and forward Side step Comments Reviewed to look torwards hand with step for HEP Backward step Comments Reviewed toes up front foot for HEP Forward step Comments Reviewed alternating for HEP performance Therapeutic Activity Therapeutic Activity FGA Comments Score 25/30 with most trouble with tandem walking and then backwards walking and walking with eyes closed Tandem standing Comments Pt cannot get into tandem without UE support and he can perform at least 30 sec partial tandem B Gait Training Gait Activity BIG walking Comments Pt gait trains several times throughout treatment and he presents with bigger posture, steps, arm swing and improved speed 6MWT Comments Pt is able to gait train 1680 feet in 6 minutes today, improved stride and jo today, arm swing, some cues for posture Self-Care/Home Management Treatment Education Other Education Benefits of cardiopulmonary rehab, ongoing BIG exercises, when to come back for tune up if needed, education on form for BIG exercises, ed in partial tandem for home, B feet up to 1' each side PT-OP-T Assessment and Plan Start: 06/05/20 15:25 Freq: Status: Active Protocol: Document 07/06/20 14:15 MB (Rec: 07/06/20 15:09 MB [id number]) Physical Therapy Assessment Goals 6 Alf Goal (LTG) Pt will perform B Tandem for 30 sec to improve standing balance for dressing by 2019. 07/06/2020: Pt is unable to get into Tandem position. He can perform B partial tandem for 30 sec with challenge and no LOB. LTG Duration Partially met 4 Shipping/Receiving Manager Goal (LTG) Pt will perform 19 sit to stands in 30 sec without UE support to improve functional strength and transfers by . 07/06/2020: 18.5 reps in 30 sec (still standing on last one when timer went off). Pt reports 1/4 Dyspnea Scale LTG Duration Partially met 3 Shipping/Receiving Manager Goal (LTG) Pt will perform WNLs on FGA reflect improved balance by . 07/06/2020: Score is 25/30 with most trouble with gait with narrow base of support LTG Duration Partially met 2 Alf Goal (LTG) Pt will perform BIG exercises and functional task exercises with I to improve amplitude of movement by 07/14/2020. 07/06/2020: Pt is doing his BIG exercises and walking LTG Duration Met 1 Alf Goal (LTG) Pt will gait train at least 1600 feet in 6 minutes without AD in order to improve community ambulation by 2019. 07/06/2020: Goal met: pt gait trains 1680 feet in 6 minutes LTG Duration Met Assessment Summary Assessment Pt has met the following PT goals since starting PT: performance of BIG HEP exercises and 6MWT goal. He has progressed towards FGA, tandem standing and and sit to stand goals. Orthostatic hypotension testing with BP and HR in right UE: supine 124 /66, 64; standing 87/48, 70; standing 1' 83/47; standing 2' 79/48, 68. Standing 3' in RUE : 77/52, 69. BP after gait in RUE: 131/76, 71. Pt has completed BIG program and is ready for d/c. He is looking into going to cardiopulmonary rehab starting next month.
--- NOTE | 2020-07-06 15:41 | PT.OPDS ---
Current Diagnoses Parkinson's disease (07/06/20) Visit Care Team Role Provider Type Verito Sterling MD Family Provider Non-Staff Primary Care Provider Specialty: Family Practice Address: [address], [place], [address] Email: Rand Cabrera MD Attending Provider Non-Staff Referring Provider Specialty: Psychiatry Address: [address] [place] [address], [address], [place], [address] Email: Visit Number Visit Number 17 Discharge Summary PT-OP-B Current Condition Start: 06/05/20 15:25 Freq: Status: Active Protocol: Document 06/08/20 14:07 MB (Rec: 06/08/20 14:11 MB [id number]) Current Condition History of Current Condition Onset Date Pt first experienced loss of smell 1998 Current Complaints Hypotension, slowness, gait changes History of Current Condition Pt arrives for assessment in preparation to initiate BIG PT course. Pt's initial symptoms of PD were loss of smell in 1998 and erectile dysfunction prior to that. He was diagnosed in 2013. He emotional lability right before his dx. He reports a minor tremor that occurs with fine motor finger movement. PMH includes BPH, non-agressive prostate CA and he takes medication. His current PD symptoms include gait disturbance, hypotension and dizziness. He has pain in the small of his back with hypotension. Pt currently takes Carbidopa- levodopa time release 3 caps four times a day and Rasagiline 1x/day for his PD. His medications help his mobility. Pt had a stroke December 04, 2019. He passed out and his heard him fall. He was unconscious and couldn't talk when he came to. He had a left sided facial droop. He was dx with right MCA infarct. He got TPA and was taken to [place]. He was put on Eloquist and a statin. Pt underwent mitroclip 2019 for mitral prolapse. 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 Pt lives with his in [place]. He lives in a house. There are no stairs to enter the home. He has 2 steps in the house with 1 rail. He is a retired RT. Pt drives, helps with house cleaning, landscaping and repairs. He does not use AD. He likes to watch TV, [place] sail boats, cars and gliders. Pt's current PD symptoms are gait and speed difficulties, hypotension, slowness. His goals are to get more stamina, stronger, better conditioning . Pt is wearing B thigh high compression hose. Pt describes his back discomfort is near his kidneys . Pt likes to walk his small dog on a leash about 20-30 minutes a day. His light- headedness is not dependent on time of day but is dependent on being up. Pt drinks 16 oz of coffee in the morning. He is drinking two alcoholic drinks a day: 1 beer and either 1/2 glass of wine or shot a day. He is drinking 4 8 oz glasses of water or 2 16- 17 oz of carbonated flavored water a day. PT-OP-C Subjective Start: 06/05/20 15:25 Freq: Status: Active Protocol: Document 07/06/20 14:15 MB (Rec: 07/06/20 15:09 MB [id number]) OP-PT Subjective Patient Comments Patient Comments I called pulmonary rehab and they are going to call me back about scheduling. Pt states that his BIG experience was a positive experience. PT-OP-D Balance Start: 06/05/20 15:25 Freq: Status: Active Protocol: Document 06/08/20 14:07 MB (Rec: 06/08/20 15:48 MB [id number]) Balance Tests Other Other Balance Tests Performed SLS deferred today d/t pt is orthostatic with moving to standing PT-OP-G Mobility & Gait Start: 06/05/20 15:25 Freq: Status: Active Protocol: Document 06/08/20 14:07 MB (Rec: 06/08/20 15:48 MB [id number]) OP Gait Assessment Gait Gait Assistance Required: Independent Distance (Feet) 75 Assistive Devices Assistive Device None Gait Deviations General Gait Pattern Decreased Feet Clearance Comments Gait Comments Pt presents with increased right greater than left knee flexion with weight acceptance with gait. His right LE appears functionally longer than the left with gait. He presents with right greater than left foot scuffing with gait and presents with overpronation right foot with gait. PT-OP-M Strength Start: 06/05/20 15:25 Freq: Status: Active Protocol: Document 06/08/20 14:07 MB (Rec: 06/08/20 15:48 MB [id number]) Shoulder Strength Shoulder Manual Muscle Testing B Flexion 5 Normal Abduction (C5) 5 Normal Elbow/Forearm Strength Elbow and Forearm Manual Muscle Testing B Flexion (C6) 5 Normal Extension (C7) 5 Normal Hip Strength Hip Manual Muscle Testing Left Flexion (L2) 5 Normal Abduction 5 Normal Right Flexion (L2) 4 Good Abduction 4 Good Knee Strength Knee Manual Muscle Testing Left Extension (L3) 5 Normal Right Extension (L3) 5 Normal Ankle/Foot Strength Ankle and Foot Manual Muscle Testing Left Dorsiflexion (L4) 5 Normal Right Dorsiflexion (L4) 5 Normal Toe Strength Toe Manual Muscle Testing Left Great Toe Extension 5 Normal Right Great Toe Extension 4 Good PT-OP-T Assessment and Plan Start: 06/05/20 15:25 Freq: Status: Active Protocol: Document 07/06/20 14:15 MB (Rec: 07/06/20 15:09 MB [id number]) Physical Therapy Assessment Goals 6 Tight Cooper Goal (LTG) Pt will perform B Tandem for 30 sec to improve standing balance for dressing by 2019. 07/06/2020: Pt is unable to get into Tandem position. He can perform B partial tandem for 30 sec with challenge and no LOB. LTG Duration Partially met 4 Fpc Goal (LTG) Pt will perform 19 sit to stands in 30 sec without UE support to improve functional strength and transfers by . 07/06/2020: 18.5 reps in 30 sec (still standing on last one when timer went off). Pt reports 1/4 Dyspnea Scale LTG Duration Partially met 3 Tight Cooper Goal (LTG) Pt will perform WNLs on FGA reflect improved balance by . 07/06/2020: Score is 25/30 with most trouble with gait with narrow base of support LTG Duration Partially met 2 Tight Cooper Goal (LTG) Pt will perform BIG exercises and functional task exercises with I to improve amplitude of movement by 07/14/2020. 07/06/2020: Pt is doing his BIG exercises and walking LTG Duration Met 1 Fpc Goal (LTG) Pt will gait train at least 1600 feet in 6 minutes without AD in order to improve community ambulation by 2019. 07/06/2020: Goal met: pt gait trains 1680 feet in 6 minutes LTG Duration Met Assessment Summary Assessment Pt has met the following PT goals since starting PT: performance of BIG HEP exercises and 6MWT goal. He has progressed towards FGA, tandem standing and and sit to stand goals. Orthostatic hypotension testing with BP and HR in right UE: supine 124 /66, 64; standing 87/48, 70; standing 1' 83/47; standing 2' 79/48, 68. Standing 3' in RUE : 77/52, 69. BP after gait in RUE: 131/76, 71. Pt has completed BIG program and is ready for d/c. He is looking into going to cardiopulmonary rehab starting next month.
== END 2020-07-10 09:17 | disposition home or self-care (01) ==
LOC: PHYS 14:15
PROVIDERS: Family Provider Family Medicine; PCP Family Medicine; Referring Provider Electrodiagnostic Medicine; Visit Provider Electrodiagnostic Medicine
DX: G20 Parkinson's disease (principal)
CPT/HCPCS: 97110; 97112; 97116; 97161; 97530; 97535

== ENCOUNTER → 2020-08-01 13:33 | Outpatient (CLI) | payer MEDICARE, OTHER, SELFPAY ==
[2020-08-01 16:49] LABS: COVID19 -Nasal RAPID Negative (Negative)
== END ==
PROVIDERS: Family Provider Family Medicine; PCP Family Medicine; Visit Provider Physician Assistant
DX: Z01.812 Encounter for preprocedural laboratory examination (principal); Z20.822 Contact with and (suspected) exposure to COVID-19
CPT/HCPCS: 87635; C9803

== ENCOUNTER → 2020-10-19 15:46 | Outpatient (CLI) | payer MEDICARE, OTHER, SELFPAY ==
--- NOTE | 2020-10-19 15:48 | DI.ECHO.S_ITS ---
[facility] +---------+ : : [address] : [address] : : : : [id number] : : : : Phone: [phone] Echocardiogram Report + + :Name: SERENA BLANCO Study Date: 10/19/2020 Height: 75 in : :[facility] ReadingLocation: Weight: 210 lb : : Gender: Male BSA: 2.2 m2 : :: 1945 Age: 75 yrs BP: 134/81 mmHg: :Reason For Study: ACUTE DIASTOLIC CONGESTIVE HEART FAILURE : :Ordering Physician: SAM, : :SHLOMO Performed By: Denia Isabel : :Referring: SHLOMO VARGAS : + + Interpretation Summary The left ventricle is normal in size. Left ventricular systolic function is low normal. The ejection fraction is estimated to be 50-55%. Diastolic parameters suggest a pseudonormalization pattern, consistent with probable elevated filling pressures. The right ventricle is normal in size and function. Pulmonary artery pressures cannot be estimated because of the lack of a measurable TR jet velocity but the IVC suggests a CVP of around 3 mmHg. The left atrium is severely dilated. The right atrium is severely dilated. There is mild to moderate mitral regurgitation. A mitral valve clip is present. There is mild bowing of mitral leaflets during end-systole. There is no other significant valvular heart disease. The ascending aorta is mildly enlarged. Procedure: A two-dimensional transthoracic echocardiogram with color flow and Doppler was performed. The study quality was technically difficult. There is no prior echocardiogram noted for this patient. The patient had occasional PVCs during the exam. The patient was in sinus bradycardia with heart rates between 52-63 bpm during the exam. Left Ventricle: The left ventricle is normal in size. There is mild concentric left ventricular hypertrophy. Left ventricular systolic function is low normal. The ejection fraction is estimated to be 50-55%. Diastolic parameters suggest a pseudonormalization pattern, consistent with probable elevated filling pressures. Right Ventricle: The right ventricle is normal in size and function. Atria: The left atrium is severely dilated. The right atrium is severely dilated. There is no Doppler evidence for an interatrial shunt. Mitral Valve: There is mild mitral annular calcification. A mitral valve clip is present. There is mild bowing of mitral leaflets during end-systole. There is mild to moderate mitral regurgitation. Aortic Valve: The aortic valve is trileaflet. The aortic valve opens well. There is no aortic valve stenosis. No aortic regurgitation is present. Tricuspid Valve: The tricuspid valve is normal in structure and function. Pulmonary artery pressures cannot be estimated because of the lack of a measurable TR jet velocity but the IVC suggests a CVP of around 3 mmHg. There is trace tricuspid regurgitation. Pulmonic Valve: The pulmonic valve is not well seen, but is grossly normal. There is no pulmonic valvular regurgitation. There is no other significant valvular heart disease. Great Vessels: The aortic root is normal size. The ascending aorta is mildly enlarged. The IVC is of normal diameter and collapses greater than 50% with a sniff. This suggests a low right atrial pressure of 3 mm Hg. Pericardium/ Pleura There is no pericardial effusion. There is no pleural effusion. MMode/2D Measurements & Calculations LVIDd: 5.4 cm LVOT diam: 2.3 cm LVIDs: 3.5 cm Ao root diam: 3.6 cm FS: 34.3 % asc Aorta Diam: 3.5 cm EPSS: 2.3 cm Ao Arch Diam (Prox Trans): 3.2 cm IVSd: 1.1 cm LVPWd: 1.2 cm LV goodman. diameter/BSA (cm/m^2): 2.4 LV sys. diameter/BSA (cm/m^2): 1.6 LA A2 area: 44.1 cm2 RA long axis: 6.3 cm LA A4 area: 32.7 cm2 RA area: 28.9 cm2 LA length (vol): 6.6 cm RA vol: 112.8 ml LA vol: 186.2 ml RA : 50.3 ml/m2 LA vol index: 83.1 ml/m2 IVC diam: 2.0 cm RVD1 (basal): 3.6 cm TAPSE: 2.5 cm Doppler Measurements & Calculations Ao V2 max: 129.5 cm/sec LVOT Max Bo[place]: 96.1 cm/sec Ao V2 mean: 91.1 cm/sec LV V1 max P.7 mmHg Ao max P.7 mmHg LV V1 VTI: 22.0 cm Ao mean P.7 mmHg NORM(I,D): 3.0 cm2 Ao V2 VTI: 29.8 cm NORM(V,D): 3.1 cm2 sev ratio: 0.74 NORM indexed to BSA (cm^2/m^2): 1.4 MV E max boone: 94.3 cm/sec PA V2 max: 154.8 cm/sec MV A max boone: 101.0 cm/sec PA V2 mean: 99.1 cm/sec MV E/A: 0.93 PA mean P.6 mmHg Med Peak E' Boone: 3.6 cm/sec PA pr(Accel): 34.5 mmHg E/E' med: 26.3 Lat Peak E' Boone: 9.2 cm/sec E/E' lat: 10.2 E/e' average: 18.2 MV dec time: 0.35 sec MVA(VTI): 2.4 cm2 MV V2 mean: 66.5 cm/sec SV(LVOT): 90.4 ml MV mean P.0 mmHg MV V2 VTI: 37.7 cm Reading Physician:08:35 AM
== END ==
PROVIDERS: Family Provider Family Medicine; PCP Family Medicine; Referring Provider Internal Medicine Cardiovascular Disease; Visit Provider Internal Medicine Cardiovascular Disease
DX: I34.0 Nonrheumatic mitral (valve) insufficiency (principal); I50.31 Acute diastolic (congestive) heart failure; I77.89 Other specified disorders of arteries and arterioles
CPT/HCPCS: 93306

== ENCOUNTER 2020-10-26 14:00 | Outpatient (RCR) | payer MEDICARE, OTHER, SELFPAY | END 2020-10-26 16:00 | LOC: CAR 14:00 | PROVIDERS: Family Provider Family Medicine; PCP Family Medicine; Referring Provider Internal Medicine; Visit Provider Internal Medicine | DX: I50.9 Heart failure, unspecified (principal); Z98.890 Other specified postprocedural states; Z95.818 Presence of other cardiac implants and grafts | CPT/HCPCS: 93798 ==

== ENCOUNTER 2023-07-12 07:44 | Inpatient (IN) | payer MEDICARE, OTHER, SELFPAY ==
[2023-07-12] VITALS (78 sets, daily range): BP systolic 74–118; BP diastolic 52–85; PULSE 74–147; RESP 16–30; TEMP 36.4–37.1; O2SAT 87–100; BMI 31.3
--- NOTE | 2023-07-12 07:33 | ED.GENADULT ---
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 He notes over the last week he has been slightly more short of breath including exertional dyspnea. He has not been having orthopnea, fevers, cough, chills, palpitations, tachycardia, chest pain, nausea, vomiting, diarrhea, abdominal pain. He is noted that his chronic dependent edema has been worse over the last week. This morning at around 5:00 a.m. he got up to go to the bathroom and found that he was so short of breath he could not get to the bathroom. He sat back down thinking this would pass but it did not. When medics arrived they found him in significant respiratory distress tachypneic with room air sats at 83%. He responded nicely to oxygen and on arrival he is on 3-4 L of oxygen, sats are increased to 96-97%. He currently is on atorvastatin, clonazepam to help with REM sleep related to Parkinson's disease, extended relief carbidopa levodopa,rasagiline for Parkinson's related dystonia, mitodrine for post prandial parkinson's related hypotension, no beta-blockers. Related Data Home Medications Medication Instructions Recorded Confirmed acyclovir 400 mg tablet 400 mg PO TID PRN outbreaks 11/13/18 07/12/23 clonazepam 0.5 mg tablet 0.5 mg PO BEDTIME 11/13/18 07/12/23 ketotifen fumarate 0.025 % (0.035 1 drp EYE-BOTH WEEKLY 11/13/18 11/13/18 %) eye drops ([place]) melatonin 5 mg tablet 5 mg PO BEDTIME PRN Sleep 11/13/18 07/12/23 multivitamin 1 tab PO DAILY 11/13/18 11/13/18 rasagiline 1 mg tablet 1 mg PO DAILY 11/13/18 07/12/23 sildenafil 100 mg tablet 100 mg PO DAILY PRN Sexual Activity 11/13/18 07/12/23 atorvastatin 20 mg tablet 20 mg PO DAILY 07/12/23 07/12/23 carbidopa ER 48.75 mg-levodopa 195 2 cap PO 4XD 07/12/23 07/12/23 mg capsule,extended release (Rytary) midodrine 2.5 mg tablet 2.5 mg PO 3XD yes 07/12/23 07/12/23 Allergies Allergy/AdvReac Type Severity Reaction Status Date / Time No Known Drug Allergies Allergy Verified 11/13/18 09:52 Review of Systems Review of Systems Narrative: Pertinent positive and negative findings as per HPI Patient History Medical History Impaired vision BPH (benign prostatic hyperplasia) Constipation Parkinsons disease Prostate cancer Skin cancer Social History household members: spouse Smoking Status: Never smoker Exam Narrative Exam Narrative: General: Appears to be in moderate distress, pale, not diaphoretic currently able to speak in full sentence HEENT: Moist mucous membranes, normal sclera with reactive pupils, Neck: Mild JVD, supple Respiratory: Lungs are clear to auscultation, no wheezing no rales no rhonchi. Full and symmetrical air movement. Can speak in full sentences with oxygen per nasal cannula Cardiac: Irregular, rapid, no murmurs Abdomen: Soft, nontender, good bowel tones, no flank pain Skin: Warm and dry, no rashes Neurologic: Grossly neurologically intact with no obvious asymmetries or abnormalities Extremities: No trauma, 3+ bilateral lower extremity edema Psych: Cooperative, appropriate insight and affect Initial Vital Signs Initial Vital Signs: Vital Signs Pulse Rate 76 07/12/23 07:49 Blood Pressure 118/81 07/12/23 07:49 Pulse Oximetry 94 07/12/23 07:49 Course Orders Ordered: ED Orders 07/12/23 08:00 XR chest 1V Stat Complete Blood Count AUTO DIFF Stat Comprehensive Metabolic Panel Stat D Dimer Stat Lipase Stat Magnesium Stat NT-proBNP (BNP-Adult 18+) Stat Thyroid Stimulating Hormone Stat Trop I [Troponin I] Stat 07/12/23 08:01 EKG-12 Lead Stat 07/12/23 08:55 Urinalysis and Microscopic Stat Urine Culture Stat 07/12/23 09:50 CT angio chest PE protocol Stat 07/12/23 10:31 Trop I [Troponin I] Stat Discontinued Medications Aspirin (Aspirin 81 Mg Chew Tab) 324 mg PO NOW ONE Stop: 07/12/23 08:00 Last Admin: 07/12/23 08:14 Dose: 324 mg Documented By: DANIEL Furosemide (Furosemide 40 Mg/4 Ml Vial) 20 mg IV NOW ONE Stop: 07/12/23 09:53 Last Admin: 07/12/23 11:08 Dose: 20 mg Documented By: DANIEL Metoprolol Tartrate (Metoprolol Tartrate 5 Mg/5 Ml Inj) 5 mg IV Q5M [facility] Stop: 07/12/23 08:11 Last Admin: 07/12/23 09:08 Dose: Not Given Documented By: Admin: 07/12/23 09:08 Dose: Not Given Documented By: Admin: 07/12/23 08:10 Dose: 5 mg Documented By: DANIEL Vital Signs Vital signs: Vital Signs - 8 hr 07/12/23 07:49 07/12/23 07:49 07/12/23 07:51 Temperature 98.8 F Pulse Rate 76 132 H Respiratory Rate 20 Blood Pressure 118/81 118/81 Pulse Oximetry 94 95 Oxygen Delivery Method Nasal Cannula Oxygen Flow Rate 2 07/12/23 08:00 07/12/23 08:00 07/12/23 08:19 Temperature Pulse Rate 147 H 124 H Respiratory Rate 23 22 Blood Pressure 112/66 Pulse Oximetry 95 97 Oxygen Delivery Method Oxygen Flow Rate 07/12/23 08:19 07/12/23 08:30 07/12/23 08:30 Temperature Pulse Rate 130 H Respiratory Rate 26 H Blood Pressure 97/71 104/76 Pulse Oximetry 97 Oxygen Delivery Method Oxygen Flow Rate 07/12/23 08:46 07/12/23 08:46 07/12/23 09:00 Temperature Pulse Rate 121 H 136 H Respiratory Rate 28 H 21 Blood Pressure 118/67 Pulse Oximetry 99 98 Oxygen Delivery Method Oxygen Flow Rate 07/12/23 09:01 07/12/23 09:01 07/12/23 09:10 Temperature Pulse Rate 129 H 125 H Respiratory Rate 21 22 Blood Pressure 99/64 Pulse Oximetry 98 98 Oxygen Delivery Method Oxygen Flow Rate 07/12/23 09:10 07/12/23 09:20 07/12/23 09:20 Temperature Pulse Rate 121 H Respiratory Rate 21 Blood Pressure 100/72 93/65 Pulse Oximetry 99 Oxygen Delivery Method Oxygen Flow Rate 07/12/23 09:30 07/12/23 09:30 07/12/23 09:40 Temperature Pulse Rate 131 H 130 H Respiratory Rate 21 17 Blood Pressure 99/55 L Pulse Oximetry 98 98 Oxygen Delivery Method Oxygen Flow Rate 07/12/23 09:40 07/12/23 09:49 07/12/23 09:49 Temperature Pulse Rate 128 H Respiratory Rate 19 Blood Pressure 90/65 92/63 Pulse Oximetry 98 Oxygen Delivery Method Oxygen Flow Rate 07/12/23 09:50 07/12/23 09:50 07/12/23 10:08 Temperature Pulse Rate 128 H 74 Respiratory Rate 19 Blood Pressure 95/71 98/72 Pulse Oximetry 98 95 Oxygen Delivery Method Oxygen Flow Rate 07/12/23 10:30 07/12/23 11:00 07/12/23 11:30 Temperature Pulse Rate 124 H 128 H 120 H Respiratory Rate 19 20 16 Blood Pressure 96/70 92/70 Pulse Oximetry 95 96 97 Oxygen Delivery Method Oxygen Flow Rate 07/12/23 11:51 07/12/23 11:51 07/12/23 11:53 Temperature Pulse Rate 133 H 123 H Respiratory Rate 17 19 Blood Pressure 94/64 Pulse Oximetry 97 98 Oxygen Delivery Method Oxygen Flow Rate 07/12/23 11:53 07/12/23 12:00 07/12/23 12:00 Temperature Pulse Rate 134 H Respiratory Rate 18 Blood Pressure 87/68 L 102/80 Pulse Oximetry 97 Oxygen Delivery Method Oxygen Flow Rate 07/12/23 12:10 07/12/23 12:10 Temperature Pulse Rate 130 H Respiratory Rate 18 Blood Pressure 100/70 Pulse Oximetry 97 Oxygen Delivery Method Oxygen Flow Rate Medical Decision Making Lab Data 07/12/23 08:00 07/12/23 08:00 Labs: Lab Results 07/12/23 07/12/23 07/12/23 Range/Units 08:00 08:55 10:31 WBC 12.5 H (4.5-11.0) X10^3/uL RBC 3.17 L (4.5-5.9) X10^6/uL Hgb 10.2 L (13.5-17.5) g/dL Hct 28.9 L (41-53) % MCV 91.2 (80-100) fL MCH 32.2 (26-34) PG MCHC 35.3 (30-36) % RDW 14.3 (11.6-14.8) % Plt Count 134 L (150-400) X10^3/uL Neut % (Auto) 89.1 H (50-75) % Lymph % (Auto) 3.4 L (25-40) % [place] % (Auto) 7.3 (3-14) % Eos % (Auto) 0.1 L (2-4) % Baso % (Auto) 0.1 (0-2) % Neut # (Auto) 85472 H (9669-3637) /uL Lymph # (Auto) 400 L (2793-3658) /uL [place] # (Auto) 900 (0-900) /uL Eos # (Auto) 0 (0-450) /uL Baso # (Auto) 0 (0-100) /uL D-Dimer 4221 H (<500) ng/ml Sodium 122 L (137-145) mmol/L Potassium 4.2 (3.4-5.1) mmol/L Chloride 89 L (98-107) mmol/L Carbon Dioxide 23 (22-32) mmol/L BUN 21 H (9-20) mg/dL Creatinine 0.83 (0.66-1.25) mg/dL Estimated GFR > 60 (>60) mL/min BUN/Creatinine Ratio 25.3 H (6-22) Glucose 117 H (80-110) mg/dL Calcium 8.8 (8.4-10.2) mg/dL Magnesium 1.7 (1.6-2.3) mg/dL Total Bilirubin 2.2 H (0.2-1.3) mg/dL AST 40 (17-59) IU/L ALT 14 (<50) IU/L Alkaline Phosphatase 127 H (38-126) U/L Troponin I < 0.012 < 0.012 (0.01-0.034) ng/mL NT-Pro-B Natriuret Pep 6230 H (<450) pg/mL Total Protein 6.5 (6.3-8.2) g/dL Albumin 3.4 L (3.5-5.0) g/dL Globulin 3.1 (1.7-4.1) g/dL Albumin/Globulin Ratio 1.1 (1.0-2.8) Lipase 66 (23-300) U/L TSH 1.93 (0.47-4.68) uIU/mL Urine Color [place] Urine Appearance Clear Urine pH TNP Ur Specific [place] TNP Urine Protein TNP Urine Glucose (UA) TNP Urine Ketones TNP Urine Occult Blood TNP Urine Nitrate TNP Urine Bilirubin TNP Urine Urobilinogen TNP Ur Leukocyte Esterase TNP Urine RBC 1-5/hpf (0-5/HPF) Urine WBC >100/hpf H (0-5/HPF) Ur Squamous Epith Cells None seen (0-5/HPF) Urine Bacteria Many (>30) H (None) Urine Mucus 1+ H (Negative) Ur Culture Indicated? Specimen cultured MDM Narrative Medical decision making narrative: CC: Dyspnea increasing for a week with dramatic worsening at 5:00 a.m. this morning Complicating co-morbidities: New atrial fibrillation, severe dyspnea Data collected from: patient, , medics Medical records reviewed: EMS notes are reviewed and real-time. Echocardiogram done in September of 2020 shows normal left ventricle with an estimated ejection fraction 50-55% diastolic parameters suggest a pseudonormalization pattern consistent with probable elevated filling pressures., bilateral severely dial dilated atria, [id number] mitral regurg with a mitral valve clip in place Differential considered: ACS, congestive heart failure, new atrial fibrillation, pulmonary embolism Exam documented above, pertinent findings include: Patient appears acutely unwell, pale improved tachypnea and dyspnea on nasal cannula oxygen. Minor JVD no obvious crackles or rales. Increased lower extremity edema Lab Test results independently reviewed as above. Pertinent findings: CBC shows mild leukocytosis at 12.5 with moderate left shift neutrophils at 89.1%. Mild anemia at 10.2 and 28.9. There are no prior labs for comparison D-dimer is 4221, PE study will be ordered Metabolic panel shows relative hyponatremia at 1:22 a.m.. Appropriate renal function with creatinine at 0.8. Bilirubin and alkaline phosphatase are both slightly elevated AST and ALT are unremarkable Lipase is within normal limits ProBNP is elevated at 6230 First and 2nd troponins are not elevated Independently reviewed EKG: Atrial fibrillation at a rate of 130, slight ST depression laterally no ST elevations, occasional PVC Imaging studies independently reviewed: CT angiogram as discussed in real-time with radiology. Official radiology report IMPRESSION: Pulmonary emboli are present bilaterally without right heart strain. Pulmonary artery is enlarged most suggestive of pulmonary artery hypertension. Borderline enlarged mediastinal lymph nodes which may be reactive in nature. Follow-up is recommended to document resolution. Nodular focus in the right upper lobe as above at the confluence of pulmonary vascularity. This could represent a small focus of thrombus versus pulmonary nodule is difficult to discern on current exam. Given size, recommend three-month interval follow-up for further evaluation of resolved thrombus versus pulmonary nodule. The above findings were discussed with Dr. Kayla Roland on 07/12/2023 at 10:53 a.m. Consultations: Dr. Greene, cardiology. Given his dilated atria in 2020 her recommendation is esmolol for rate control rather than actively trying to cardiovert him. Agrees with hospitalization, heparin and need for echocardiogram. 3:15pm [address]nd discussion with Dr. Greene. Esmolol caused significant hypotension. Her next recommendation was trying digoxin 0.25 mcg q.6 hours times a total of 4 doses. If that is ineffective then moving toward amiodarone. Goal is not to try to cardiovert him until echocardiogram confirms no atrial clots. Treatments: IV metoprolol, IV Lasix, heparin drip, IV esmolol, IV digoxin Re-evaluations:1230 findings reviewed with patient and his spouse. Understands need for hospitalization, pulmonary embolism findings and new atrial fibrillation with congestive heart failure Discussion: 77-year-old gentleman with 5 days of increasing dyspnea with multiple bilateral subsegmental pulmonary emboli, congestive heart failure and new onset atrial fibrillation. We will be started on an esmolol drip to assist with rate control, he did respond nicely to 20 mg of Lasix in his already put out 600 cc of urine to deal with his acute congestive heart failure which is also a new diagnosis. Heparin drip has been initiated. Care is reviewed with Dr. Robbins, hospitalist. Requests hospitalist consultation prior to accepting admission. Recommendations from the clerk checker are reviewed with the hospitalist. Patient will be admitted to the ICU. Critical Care Time Critical Care Time Critical Care Time: Yes Total Critical Care Time: 43 Attestation: Critical care time is separate from other billable procedures. There is a high probability of a significant, sudden or life-threatening deterioration that requires my full and direct attention, intervention and personal management. This critical care time includes consultation with family and other consulting doctors, review of records, and interpretation of data from labs, EKGs and imaging as well as managements of heart rate with IV medications, IV heparin for pulmonary embolism and IV Lasix for new onset congestive heart failure. Discharge Plan Departure Patient Disposition: Admitted As Inpatient Clinical Impression: Atrial fibrillation with rapid ventricular response Pulmonary embolism Qualifiers: Pulmonary embolism type: multiple subsegmental (without acute cor pulmonale) Qualified Code(s): I26.94 - Multiple subsegmental pulmonary emboli without acute cor pulmonale Congestive heart failure Qualifiers: Heart failure type: unspecified Heart failure chronicity: acute Qualified Code(s): I50.9 - Heart failure, unspecified Admit Date/Time: 07/12/23 15:19
--- NOTE | 2023-07-12 08:00 | DI.RAD.S_ITS ---
PROCEDURE: XR CHEST 1V INDICATIONS: dyspnea TECHNIQUE: One view of the chest was acquired. COMPARISON: None. FINDINGS: Surgical changes and devices: None. Lungs and pleura: Streaky bibasilar opacities. Mediastinum: Mediastinal contours appear normal. Heart size is enlarged. Bones and chest wall: No suspicious bony lesions. Overlying soft tissues appear unremarkable. IMPRESSION: Streaky bibasilar opacities possibly representing atelectasis versus developing pneumonia. Dictated by: Heidi Fletcher M.D. on 07/12/2023 at 8:35 Approved by: Heidi Fletcher M.D. on 07/12/2023 at 8:36
[2023-07-12] MEDS: METOPROLOL TARTRATE 5 MG/5 ML INJ IV (08:10)
[2023-07-12] MEDS: ASPIRIN 81 MG CHEW TAB 324 MG PO (08:14)
--- NOTE | 2023-07-12 08:24 | PC.NURSE ---
Pt BP 97/71 after 1st dose of metoprolol. Will hold remaining doses, at this time, per physician.
[2023-07-12 09:08] LABS: Add Manual Diff / Slide Review NO; Basophils Absolute Auto 0 /uL (0-100); Basophils Percent Auto 0.1 % (0-2); Eosinophils Absolute Auto 0 /uL (0-450); Eosinophils Percent Auto 0.1 % (2-4); Hematocrit 28.9 % (41-53); Hemoglobin 10.2 g/dL (13.5-17.5); Lymphocytes Absolute Auto 400 /uL (1100-4500); Lymphocytes Percent Auto 3.4 % (25-40); Mean Corpuscular HGB Conc 35.3 % (30-36); Mean Corpuscular Hemoglobin 32.2 PG (26-34); Mean Corpuscular Volume 91.2 fL (80-100); Monocytes Absolute Auto 900 /uL (0-900); Monocytes Percent Auto 7.3 % (3-14); Neutrophils Absolute Auto 11200 /uL (1500-7000); Neutrophils Percent Auto 89.1 % (50-75); Platelet Count 134 X10^3/uL (150-400); Red Blood Cell Count 3.17 X10^6/uL (4.5-5.9); Red Cell Distribution Width 14.3 % (11.6-14.8); White Blood Cell Count 12.5 X10^3/uL (4.5-11.0)
[2023-07-12 09:17] LABS: Appearance Urine UA Clear; Color Urine UA Orange
[2023-07-12 09:18] LABS: Bacteria Urine Many (>30); Culture Indicated Urine Specimen Cultured; Mucus Urine 1+ (Negative); RBC Urine 1-5/HPF (0-5/HPF); Squamous Epithelial Cell Urine None Seen (0-5/HPF); WBC Urine >100/HPF (0-5/HPF)
[2023-07-12 09:19] LABS: D Dimer 4221 ng/ml (<500)
[2023-07-12 09:22] LABS: Alanine Aminotransferase 14 IU/L (<50); Albumin 3.4 g/dL (3.5-5.0); Albumin Globulin Ratio 1.1 (1.0-2.8); Alkaline Phosphatase 127 U/L (38-126); Aspartate Aminotransferase 40 IU/L (17-59); BUN Creatinine Ratio 25.3 (6-22); Bilirubin Total 2.2 mg/dL (0.2-1.3); Blood Urea Nitrogen 21 mg/dL (9-20); Calcium 8.8 mg/dL (8.4-10.2); Carbon Dioxide 23 mmol/L (22-32); Chloride 89 mmol/L (98-107); Estimated Glomerular Filt Rate > 60 mL/min (>60); Globulin 3.1 g/dL (1.7-4.1); Glucose 117 mg/dL (80-110); HEMOLYSIS < 15 (0-50); Lipase 66 U/L (23-300); Magnesium 1.7 mg/dL (1.6-2.3); Potassium 4.2 mmol/L (3.4-5.1); Sodium 122 mmol/L (137-145); Total Protein 6.5 g/dL (6.3-8.2)
[2023-07-12 09:31] LABS: NT-proBNP (BNP-Adult 18+) 6230 pg/mL (<450)
[2023-07-12 09:35] LABS: Troponin I < 0.012 ng/mL (0.01-0.034)
--- NOTE | 2023-07-12 09:50 | DI.CT.S_ITS ---
PROCEDURE: CT ANGIO CHEST PE PROTOCOL INDICATIONS: tachy, tachpynic, elevated D dimer >4000 TECHNIQUE: After the administration of intravenous contrast, 2 mm thick sections acquired from the pulmonary apices to the posterior costophrenic angles. 3-dimensional maximum intensity projection (MIP) coronal and sagittal reformats were then acquired through the thorax. For radiation dose reduction, the following was used: automated exposure control, adjustment of mA and/or kV according to patient size. COMPARISON: [facility], , XR CHEST 1V, 07/12/2023, 8:03. FINDINGS: Image quality: Diagnostic. Pulmonary arteries: Filling defects within the pulmonary artery are identified predominantly in the segmental branches bilaterally. However, thrombus is present in the distal most aspect of the right main pulmonary artery. Nodular focus is present measuring 7 mm on series 5, image 97 in the right upper lobe. This is at the confluence of pulmonary vasculature. Main pulmonary artery is prominent measuring 3.5 cm. Lungs and pleura: Mild bilateral effusions with superimposed areas of consolidation. Mediastinum: Heart size is enlarged without pericardial effusion. Borderline enlarged mediastinal lymph nodes. Thoracic aorta is normal in caliber and enhancement. Esophagus is normal in caliber, without hiatal hernia. Bones and chest wall: No suspicious bony lesions. Ribs and thoracic spine appear intact throughout. No axillary or supraclavicular adenopathy. No thyroid nodules which require sonographic follow up, per consensus guidelines. Upper Abdomen: Visualized upper abdominal solid organs appear normal in the early arterial phase of enhancement. IMPRESSION: Pulmonary emboli are present bilaterally without right heart strain. Pulmonary artery is enlarged most suggestive of pulmonary artery hypertension. Borderline enlarged mediastinal lymph nodes which may be reactive in nature. Follow-up is recommended to document resolution. Nodular focus in the right upper lobe as above at the confluence of pulmonary vascularity. This could represent a small focus of thrombus versus pulmonary nodule is difficult to discern on current exam. Given size, recommend three-month interval follow-up for further evaluation of resolved thrombus versus pulmonary nodule. The above findings were discussed with Dr. Kayla Roland on 07/12/2023 at 10:53 a.m. Dictated by: Heidi Fletcher M.D. on 07/12/2023 at 10:52 Approved by: Heidi Fletcher M.D. on 07/12/2023 at 10:59
--- NOTE | 2023-07-12 09:50 | PC.NURSE ---
Pt's BP 92/63, physician aware. Pt given metoprolol to reduce HR and BP lowered, as well. AOx4.
[2023-07-12 09:53] LABS: Thyroid Stimulating Hormone 1.93 uIU/mL (0.47-4.68)
[2023-07-12] MEDS: FUROSEMIDE 40 MG/4 ML VIAL 20 MG IV (11:08)
[2023-07-12 11:18] LABS: Troponin I < 0.012 ng/mL (0.01-0.034)
--- NOTE | 2023-07-12 12:59 | PC.NURSE ---
Holding heparin administration until PTT is resulted. Physician and charge aware.
[2023-07-12 13:28] LABS: Hematocrit 27.2 % (41-53); Hemoglobin 9.6 g/dL (13.5-17.5); Mean Corpuscular HGB Conc 35.4 % (30-36); Mean Corpuscular Hemoglobin 32.1 PG (26-34); Mean Corpuscular Volume 90.8 fL (80-100); Platelet Count 130 X10^3/uL (150-400); Red Cell Distribution Width 14.2 % (11.6-14.8); White Blood Cell Count 12.3 X10^3/uL (4.5-11.0)
[2023-07-12] MEDS: HEPARIN 5,000 UNIT/ML VIAL 8850 UNIT IV (13:35)
[2023-07-12] MEDS: HEPARIN DRIP 25,000 UNIT/500 ML IV.SOLN 39.844 UNIT IV (13:36)
[2023-07-12 13:38] LABS: PTT Partial Thromboplastin Tim 26 SECONDS (25.1-36.5)
[2023-07-12] MEDS: ESMOLOL 2.5 GM/250 ML IV.SOLN IV (13:47)
--- NOTE | 2023-07-12 14:06 | PC.NURSE ---
Esmolol started per physician, physician aware of trending low BPs. RN stopped Esmolol infusion a few minutes into the administration due to low BP. Physician and charge advised. 250 NS bolus ordered.
[2023-07-12] MEDS: SODIUM CHLORIDE 0.9% 250 ML 500 ML IV (14:16)
--- NOTE | 2023-07-12 14:17 | PC.NURSE ---
Pt resting on stretcher in trendelenberg position for BP 82/systolic. Dr Carlson aware. states comfortable. asymtomatic at this time. heparin infusing. Esmolol off. 250mL NS bolus infusing.
--- NOTE | 2023-07-12 15:42 | DI.ECHO.S_ITS ---
[place] [facility]---------+ [facility] +---------+ : : [address] : [address] : : : : [id number] : : : : Phone: [phone]+ Echocardiogram Report + + :Name: SERENA BLANCO Study Date: 07/13/2023 Height: 74 in : :[facility] ReadingLocation: Weight: 244 lb: : Gender: Male BSA: 2.4 m2 : :: 1945 Age: 77 yrs BP: 88/57 mmHg: :Reason For Study: ATRIAL FIBRILLATION : :Ordering Physician: OTONIEL, : :YUKO Dominguez Performed By: Denia Isabel : :Referring: YUKO FREDERICK : + + Interpretation Summary The ejection fraction is estimated to be 55-60%. Diastolic function could not be accurately assessed due to atrial fibrillation. The left atrium is severely dilated. The right ventricle is mildly dilated. The right ventricular systolic function is normal. The right atrium is moderately dilated. A mitral valve clip is present. There is moderate mitral regurgitation. There is mild tricuspid regurgitation. Pulmonary artery pressures cannot be estimated because of the lack of a measurable TR jet velocity. Compared to the prior study dated 10/19/2020, no significant change. Procedure: A two-dimensional transthoracic echocardiogram with color flow and Doppler was performed. The study quality was technically adequate. Comparison is made with the echocardiogram of 10/19/2020. The patient was in atrial fibrillation with heart rates between 84-115 bpm during the exam. Left Ventricle: The left ventricle is normal in size and wall thickness. The ejection fraction is estimated to be 55-60%. Diastolic function could not be accurately assessed due to atrial fibrillation. Right Ventricle: The right ventricle is mildly dilated. The right ventricular systolic function is normal. Atria: The left atrium is severely dilated. The right atrium is moderately dilated. There is no Doppler evidence for an interatrial shunt. Mitral Valve: There is mild mitral annular calcification. A mitral valve clip is present. There is moderate mitral regurgitation. Aortic Valve: The aortic valve is trileaflet. The aortic valve opens well. There is no aortic valve stenosis. No aortic regurgitation is present. Tricuspid Valve: The tricuspid valve is normal in structure and function. There is mild tricuspid regurgitation. Pulmonary artery pressures cannot be estimated because of the lack of a measurable TR jet velocity. Pulmonic Valve: The pulmonic valve is not well seen, but is grossly normal. There is trace pulmonic regurgitation. Great Vessels: The aortic root is borderline dilated. The dimensions of the ascending aorta are normal. The inferior vena cava was not visualized. Pericardium/ Pleura There is no pericardial effusion. There is no pleural effusion. MMode/2D Measurements & Calculations LVIDd: 5.4 cm LVOT diam: 2.4 cm LVIDs: 3.6 cm Ao root diam: 3.6 cm FS: 33.2 % asc Aorta Diam: 3.5 cm IVSd: 0.96 cm Ao Arch Diam (Prox Trans): 3.1 cm LVPWd: 0.72 cm LV goodman. diameter/BSA (cm/m^2): 2.3 LV sys. diameter/BSA (cm/m^2): 1.5 LA A2 area: 24.5 cm2 RA long axis: 6.3 cm LA A4 area: 32.0 cm2 RA area: 26.7 cm2 LA length (vol): 7.1 cm RA vol: 96.0 ml LA vol: 94.2 ml RA : 40.6 ml/m2 LA vol index: 39.8 ml/m2 RVD1 (basal): 4.5 cm TAPSE: 2.1 cm Doppler Measurements & Calculations Ao V2 max: 140.5 cm/sec LVOT Max [place]: 80.6 cm/sec Ao V2 mean: 104.7 cm/sec LV V1 max P.6 mmHg Ao max P.9 mmHg LV V1 VTI: 12.5 cm Ao mean P.7 mmHg NORM(I,D): 2.8 cm2 Ao V2 VTI: 21.2 cm NORM(V,D): 2.7 cm2 sev ratio: 0.59 NORM indexed to BSA (cm^2/m^2): 1.2 MV E max boone: 144.3 cm/sec PA V2 max: 95.8 cm/sec MV A max boone: 1.2 cm/sec PA V2 mean: 67.0 cm/sec MV E/A: 120.5 PA mean P.0 mmHg Med Peak E' [place]: 7.3 cm/sec PA pr(Accel): 48.2 mmHg E/E' med: 19.7 Lat Peak E' [place]: 12.6 cm/sec E/E' lat: 11.4 E/e' average: 15.5 MV dec time: 0.17 sec MVA(VTI): 2.1 cm2 MV V2 mean: 87.5 cm/sec SV(LVOT): 58.4 ml MV mean P.5 mmHg MV V2 VTI: 27.7 cm Reading Physician:04:44 PM
[2023-07-12] MEDS: MAGNESIUM SULFATE 2 GM/50 ML PIGGYBACK IV (16:26)
[2023-07-12] MEDS: DIGOXIN 500 MCG/2 ML AMPUL 250 MCG IV ×2 (16:27→20:40)
[2023-07-12 16:38] LABS: Sodium Urine Random < 5 mmol/L (30-90)
[2023-07-12 16:50] LABS: Procalcitonin 0.29 ng/mL (<0.5)
--- NOTE | 2023-07-12 16:57 | P.HP_ITS ---
History of Present Illness History of Present Illness Date Patient Seen: 07/12/23 Chief complaint: SOB and new onset Afib Narrative: William Cagle is a 77yo M with PMH of parkinson's, prostate cancer, BPH, CVA, postural hypotension on midodrine, HLD, sleep walking on klonopin/melatonin, and low back pain who presents with worsening SOB and tachycardia. Patient states he has been SOB for about a week. He has been alot more sedentary lately due to pain in his lumbar spine, and spends most of his time at home sitting in an armchair. His BP usually runs low at 100 systolic. He denies any lightheadedness. In the ED patient found to have bilateral PE's and be in A-fib RVR. He has no prior history of A-fib. Was requiring 2L NC. HR up to 140's and cardiology initially recommended esmolol drip, however this dropped his BP so it was switched to digoxin. They recommended continuing digoxin and if not working switch to IV amio. Patient denies CP, NV, abd pain or syncope. FOR[facility]LY [facility], [facility] Medical History Impaired vision BPH (benign prostatic hyperplasia) Constipation Parkinsons disease Prostate cancer Skin cancer Social History household members: spouse Smoking Status: Never smoker alcohol intake: current Meds Home Medications and Allergies Home Medications Medication Instructions Recorded Confirmed Type acyclovir 400 mg tablet 400 mg PO TID PRN outbreaks 11/13/18 07/12/23 History clonazepam 0.5 mg tablet 1.5 mg PO BEDTIME 11/13/18 07/12/23 History melatonin 5 mg tablet 5 mg PO BEDTIME PRN Sleep 11/13/18 07/12/23 History multivitamin 1 tab PO DAILY 11/13/18 07/12/23 History rasagiline 1 mg tablet 1 mg PO DAILY 11/13/18 07/12/23 History sildenafil 100 mg tablet 100 mg PO DAILY PRN Sexual Activity 11/13/18 07/12/23 History atorvastatin 20 mg tablet 20 mg PO DAILY 07/12/23 07/12/23 History carbidopa ER 48.75 mg-levodopa 195 2 cap PO 4XD 07/12/23 07/12/23 History mg capsule,extended release (Rytary) midodrine 2.5 mg tablet 2.5 mg PO 3XD yes 07/12/23 07/12/23 History Allergies Allergy/AdvReac Type Severity Reaction Status Date / Time No Known Drug Allergies Allergy Verified 11/13/18 09:52 Review of Systems Review of Systems Narrative: All other systems reviewed with the patient and are negative unless otherwise stated. Exam Vital Signs (past 8 hours): - 07/12/23 09:00 07/12/23 09:01 07/12/23 09:01 Pulse Rate 136 H 129 H Respiratory Rate 21 21 Blood Pressure 99/64 Pulse Oximetry 98 98 Oxygen Delivery Method Oxygen Flow Rate 07/12/23 09:10 07/12/23 09:10 07/12/23 09:20 Pulse Rate 125 H 121 H Respiratory Rate 22 21 Blood Pressure 100/72 Pulse Oximetry 98 99 Oxygen Delivery Method Oxygen Flow Rate 07/12/23 09:20 07/12/23 09:30 07/12/23 09:30 Pulse Rate 131 H Respiratory Rate 21 Blood Pressure 93/65 99/55 L Pulse Oximetry 98 Oxygen Delivery Method Oxygen Flow Rate 07/12/23 09:40 07/12/23 09:40 07/12/23 09:49 Pulse Rate 130 H 128 H Respiratory Rate 17 19 Blood Pressure 90/65 Pulse Oximetry 98 98 Oxygen Delivery Method Oxygen Flow Rate 07/12/23 09:49 07/12/23 09:50 07/12/23 09:50 Pulse Rate 128 H Respiratory Rate 19 Blood Pressure 92/63 95/71 Pulse Oximetry 98 Oxygen Delivery Method Oxygen Flow Rate 07/12/23 10:08 07/12/23 10:30 07/12/23 11:00 Pulse Rate 74 124 H 128 H Respiratory Rate 19 20 Blood Pressure 98/72 96/70 Pulse Oximetry 95 95 96 Oxygen Delivery Method Oxygen Flow Rate 07/12/23 11:30 07/12/23 11:51 07/12/23 11:51 Pulse Rate 120 H 133 H Respiratory Rate 16 17 Blood Pressure 92/70 94/64 Pulse Oximetry 97 97 Oxygen Delivery Method Oxygen Flow Rate 07/12/23 11:53 07/12/23 11:53 07/12/23 12:00 Pulse Rate 123 H 134 H Respiratory Rate 19 18 Blood Pressure 87/68 L Pulse Oximetry 98 97 Oxygen Delivery Method Oxygen Flow Rate 07/12/23 12:00 07/12/23 12:10 07/12/23 12:10 Pulse Rate 130 H Respiratory Rate 18 Blood Pressure 102/80 100/70 Pulse Oximetry 97 Oxygen Delivery Method Oxygen Flow Rate 07/12/23 12:20 07/12/23 12:20 07/12/23 12:30 Pulse Rate 125 H 127 H Respiratory Rate 25 H 23 Blood Pressure 98/76 Pulse Oximetry 98 98 Oxygen Delivery Method Oxygen Flow Rate 07/12/23 12:31 07/12/23 12:31 07/12/23 12:40 Pulse Rate 127 H 128 H Respiratory Rate 25 H 21 Blood Pressure 110/69 Pulse Oximetry 98 99 Oxygen Delivery Method Oxygen Flow Rate 07/12/23 12:40 07/12/23 12:50 07/12/23 12:50 Pulse Rate 124 H Respiratory Rate 19 Blood Pressure 107/60 102/80 Pulse Oximetry 99 Oxygen Delivery Method Oxygen Flow Rate 07/12/23 13:00 07/12/23 13:00 07/12/23 13:10 Pulse Rate 135 H 130 H Respiratory Rate 18 20 Blood Pressure 99/76 Pulse Oximetry 99 99 Oxygen Delivery Method Oxygen Flow Rate 07/12/23 13:10 07/12/23 13:20 07/12/23 13:20 Pulse Rate 124 H Respiratory Rate 18 Blood Pressure 105/77 97/64 Pulse Oximetry 98 Oxygen Delivery Method Oxygen Flow Rate 07/12/23 13:30 07/12/23 13:30 07/12/23 13:41 Pulse Rate 122 H 115 H Respiratory Rate 20 19 Blood Pressure 93/65 Pulse Oximetry 97 98 Oxygen Delivery Method Oxygen Flow Rate 07/12/23 13:41 07/12/23 13:50 07/12/23 13:50 Pulse Rate 120 H Respiratory Rate 19 Blood Pressure 90/53 L 94/66 Pulse Oximetry 98 Oxygen Delivery Method Nasal Cannula Oxygen Flow Rate 2 07/12/23 13:58 07/12/23 13:58 07/12/23 13:59 Pulse Rate 112 H 122 H Respiratory Rate 18 19 Blood Pressure 80/64 L Pulse Oximetry 97 97 Oxygen Delivery Method Nasal Cannula Oxygen Flow Rate 2 07/12/23 13:59 07/12/23 14:00 07/12/23 14:00 Pulse Rate 120 H Respiratory Rate 19 Blood Pressure 91/67 99/68 Pulse Oximetry 97 Oxygen Delivery Method Oxygen Flow Rate 07/12/23 14:03 07/12/23 14:03 07/12/23 14:05 Pulse Rate 127 H 119 H Respiratory Rate 19 19 Blood Pressure 94/59 L Pulse Oximetry 96 96 Oxygen Delivery Method Oxygen Flow Rate 07/12/23 14:05 07/12/23 14:10 07/12/23 14:10 Pulse Rate 114 H Respiratory Rate 19 Blood Pressure 93/70 92/57 L Pulse Oximetry 98 Oxygen Delivery Method Oxygen Flow Rate 07/12/23 14:15 07/12/23 14:15 07/12/23 14:20 Pulse Rate 115 H 118 H Respiratory Rate 19 18 Blood Pressure 82/65 L Pulse Oximetry 97 96 Oxygen Delivery Method Oxygen Flow Rate 07/12/23 14:20 07/12/23 14:25 07/12/23 14:25 Pulse Rate 121 H Respiratory Rate 22 Blood Pressure 90/64 105/60 Pulse Oximetry 97 Oxygen Delivery Method Oxygen Flow Rate 07/12/23 14:30 07/12/23 14:30 07/12/23 14:35 Pulse Rate 113 H Respiratory Rate 22 Blood Pressure 108/56 L 111/62 Pulse Oximetry 97 Oxygen Delivery Method Oxygen Flow Rate 07/12/23 14:35 07/12/23 14:41 07/12/23 14:41 Pulse Rate 119 H 120 H Respiratory Rate 24 22 Blood Pressure 100/59 L Pulse Oximetry 97 97 Oxygen Delivery Method Oxygen Flow Rate 07/12/23 14:45 07/12/23 14:45 07/12/23 14:50 Pulse Rate 112 H 124 H Respiratory Rate 21 20 Blood Pressure 98/54 L Pulse Oximetry 98 97 Oxygen Delivery Method Oxygen Flow Rate 07/12/23 14:50 07/12/23 14:56 07/12/23 14:56 Pulse Rate 124 H Respiratory Rate 22 Blood Pressure 74/56 L 95/65 Pulse Oximetry 96 Oxygen Delivery Method Oxygen Flow Rate 07/12/23 15:00 07/12/23 15:01 07/12/23 15:01 Pulse Rate 113 H 113 H Respiratory Rate 26 H 20 Blood Pressure 103/71 Pulse Oximetry 98 97 Oxygen Delivery Method Nasal Cannula Oxygen Flow Rate 2 07/12/23 15:05 07/12/23 15:05 07/12/23 15:10 Pulse Rate 119 H 117 H Respiratory Rate 22 23 Blood Pressure 87/63 L Pulse Oximetry 97 Oxygen Delivery Method Oxygen Flow Rate 07/12/23 15:10 07/12/23 15:15 07/12/23 15:15 Pulse Rate 112 H Respiratory Rate 22 Blood Pressure 96/70 98/80 Pulse Oximetry 98 Oxygen Delivery Method Oxygen Flow Rate 07/12/23 15:20 07/12/23 15:20 07/12/23 15:25 Pulse Rate 116 H 117 H Respiratory Rate 19 18 Blood Pressure 108/65 Pulse Oximetry 98 87 L Oxygen Delivery Method Oxygen Flow Rate 07/12/23 15:25 07/12/23 15:30 07/12/23 15:31 Pulse Rate 121 H Respiratory Rate 24 Blood Pressure 89/61 L 99/69 Pulse Oximetry 99 Oxygen Delivery Method Oxygen Flow Rate 07/12/23 15:31 07/12/23 15:35 07/12/23 15:35 Pulse Rate 115 H 121 H Respiratory Rate 20 22 Blood Pressure 107/78 Pulse Oximetry 98 98 Oxygen Delivery Method Oxygen Flow Rate 07/12/23 15:40 07/12/23 15:40 07/12/23 16:27 Pulse Rate 122 H 124 H Respiratory Rate 19 Blood Pressure 105/74 111/71 Pulse Oximetry 98 Oxygen Delivery Method Nasal Cannula Oxygen Flow Rate 2 Oxygen Delivery Method Nasal Cannula Oxygen Flow Rate 2 Narrative Exam Narrative: GEN: no acute distress, some tremors HEENT: moist mucous membranes, PERRL NECK: trachea midline, no JVD CV: tachycardic, irregularly irregular, no murmurs PULM: mild crackles at bases ABD: soft, nontender, nondistended, no organomegaly EXT: 1-2+ edema of LE's NEURO: awake, alert, oriented, no focal deficits Objective Labs 07/12/23 13:11 07/12/23 19:04 Labs: Laboratory Results - last 24 hr 07/12/23 07/12/23 07/12/23 08:00 08:55 10:30 WBC 12.5 H RBC 3.17 L Hgb 10.2 L Hct 28.9 L MCV 91.2 MCH 32.2 MCHC 35.3 RDW 14.3 Plt Count 134 L Neut % (Auto) 89.1 H Lymph % (Auto) 3.4 L Clay % (Auto) 7.3 Eos % (Auto) 0.1 L Baso % (Auto) 0.1 Neut # (Auto) 53991 H Lymph # (Auto) 400 L Clay # (Auto) 900 Eos # (Auto) 0 Baso # (Auto) 0 PT Cancelled INR Cancelled APTT D-Dimer 4221 H Sodium 122 L Potassium 4.2 Chloride 89 L Carbon Dioxide 23 BUN 21 H Creatinine 0.83 Estimated GFR > 60 BUN/Creatinine Ratio 25.3 H Glucose 117 H Calcium 8.8 Magnesium 1.7 Total Bilirubin 2.2 H AST 40 ALT 14 Alkaline Phosphatase 127 H Troponin I < 0.012 NT-Pro-B Natriuret Pep 6230 H Total Protein 6.5 Albumin 3.4 L Globulin 3.1 Albumin/Globulin Ratio 1.1 Lipase 66 Procalcitonin 0.29 TSH 1.93 Urine Color [place] Urine Appearance Clear Urine pH TNP Ur Specific [place] TNP Urine Protein TNP Urine Glucose (UA) TNP Urine Ketones TNP Urine Occult Blood TNP Urine Nitrate TNP Urine Bilirubin TNP Urine Urobilinogen TNP Ur Leukocyte Esterase TNP Urine RBC 1-5/hpf Urine WBC >100/hpf H Ur Squamous Epith Cells None seen Urine Bacteria Many (>30) H Urine Mucus 1+ H Ur Culture Indicated? Specimen cultured Ur Random Sodium < 5 L 07/12/23 07/12/23 10:31 13:11 WBC 12.3 H RBC 3.00 L Hgb 9.6 L Hct 27.2 L MCV 90.8 MCH 32.1 MCHC 35.4 RDW 14.2 Plt Count 130 L Neut % (Auto) Lymph % (Auto) Clay % (Auto) Eos % (Auto) Baso % (Auto) Neut # (Auto) Lymph # (Auto) Clay # (Auto) Eos # (Auto) Baso # (Auto) PT INR APTT 26 D-Dimer Sodium Potassium Chloride Carbon Dioxide BUN Creatinine Estimated GFR BUN/Creatinine Ratio Glucose Calcium Magnesium Total Bilirubin AST ALT Alkaline Phosphatase Troponin I < 0.012 NT-Pro-B Natriuret Pep Total Protein Albumin Globulin Albumin/Globulin Ratio Lipase Procalcitonin TSH Urine Color Urine Appearance Urine pH Ur Specific [place] Urine Protein Urine Glucose (UA) Urine Ketones Urine Occult Blood Urine Nitrate Urine Bilirubin Urine Urobilinogen Ur Leukocyte Esterase Urine RBC Urine WBC Ur Squamous Epith Cells Urine Bacteria Urine Mucus Ur Culture Indicated? Ur Random Sodium Assessment & Plan Assessment & Plan narrative: # acute hypoxic resp failure 2/2 pulmonary embolism -presents with 1 week of worsening exertional dyspnea, has been sedentery due to lumbar back pain -CTPA showed bilateral PE without RHS -echo ordered -continue heparin drip -will need bridge to DOAC at PE dosing -requiring 2L NC, wean as able # acute new onset atrial fibrillation with RVR -no history of A-fib per , in RVR to 130's in ED. Likely triggered by PE as patient wore heart monitor previously for 3 yrs per and had no A-fib. -initially put on esmolol drip per cards but dropped BP -cards rec digoxin loading then po, if fails then use amio drip -continue dig 250mcg q6h x6 doses then transition to po dig -echo ordered as above -will need DOAC long-term # thrombocytopenia -plts 130k -monitor while on heparin # acute versus chronic hyponatremia -Na 122, urine sodium <5 but received IV lasix before -repeat sodium, if lower after lasix will give IVF # Parkinson's disease -continue home Sinemet and rasagiline # postural hypotension -continue home midodrine # sleep walking -continue home Klonopin and melatonin # hyperlipidemia -continue home statin Code status is Full code. DVT prophylaxis with heparin drip. Proxy is [place]. I have reviewed home meds and used all available resources to reconcile the home meds. Case discussed with ED physician/APC and patient will be admitted to the hospitalist service for further workup and management. This patient will be admitted as ICU and will require greater than 2 midnights of hospital time to treat AFib RVR and PE.
[2023-07-12 18:09] LABS: MRSA (Nasal) PCR Not Detected (Not Detect)
--- NOTE | 2023-07-12 18:37 | PC.NURSE ---
Admit Note Pt arrived to room 228 from ER via stretcher at 1600. Transferred via slider board to bed. Alert and oriented to self and place. SpO2 mid-90s on 2L NC, short of breath with exertion, lungs clear. Denies pain. Heparin gtt infusing per non-cardiac protocol. Up to BSC, steady on feet with FWW, 2 person for safety. Condom cath in place draining clear vidal urine. Sara () went home for the evening but will be back in the morning. Bed alarm on. Call light within reach, using appropriately to make needs known.
[2023-07-12 19:27] LABS: Sodium 122 mmol/L (137-145)
[2023-07-12 19:42] LABS: PTT Partial Thromboplastin Tim 118 SECONDS (25.1-36.5)
[2023-07-12] MEDS: clonazePAM 0.5 MG TABLET 1.5 MG PO (20:38)
[2023-07-12] MEDS: MELATONIN 3 MG TABLET 5 MG PO (20:38)
[2023-07-12] MEDS: CARBIDOPA LEVODOPA 2 EACH PO (20:39)
[2023-07-12] MEDS: MIDODRINE HCL 5 MG TABLET 2.5 MG PO (20:39)
[2023-07-13] VITALS (64 sets, daily range): BP systolic 70–156; BP diastolic 50–98; PULSE 92–135; RESP 14–31; TEMP 36.4–37; O2SAT 78–100
[2023-07-13 01:14] LABS: PTT Partial Thromboplastin Tim 73 SECONDS (25.1-36.5)
[2023-07-13] MEDS: DIGOXIN 500 MCG/2 ML AMPUL 250 MCG IV ×4 (02:54→20:13)
[2023-07-13] MEDS: HEPARIN DRIP 25,000 UNIT/500 ML IV.SOLN 36.55 UNIT IV (03:20)
[2023-07-13] MEDS: MIDODRINE HCL 5 MG TABLET 2.5 MG PO ×3 (05:32→17:39)
[2023-07-13 06:29] LABS: Add Manual Diff / Slide Review NO; Basophils Absolute Auto 0 /uL (0-100); Basophils Percent Auto 0.4 % (0-2); Eosinophils Absolute Auto 0 /uL (0-450); Eosinophils Percent Auto 0.1 % (2-4); Hematocrit 31.7 % (41-53); Hemoglobin 11.2 g/dL (13.5-17.5); Lymphocytes Absolute Auto 400 /uL (1100-4500); Lymphocytes Percent Auto 3.6 % (25-40); Mean Corpuscular HGB Conc 35.4 % (30-36); Mean Corpuscular Hemoglobin 32.5 PG (26-34); Monocytes Absolute Auto 500 /uL (0-900); Monocytes Percent Auto 4.9 % (3-14); Neutrophils Absolute Auto 10000 /uL (1500-7000); Platelet Count 137 X10^3/uL (150-400); Red Blood Cell Count 3.45 X10^6/uL (4.5-5.9); Red Cell Distribution Width 14.2 % (11.6-14.8)
[2023-07-13 06:40] LABS: PTT Partial Thromboplastin Tim 63 SECONDS (25.1-36.5)
--- NOTE | 2023-07-13 06:40 | PC.NURSE ---
rn shift mgr RN note Pt alert, oriented to self mostly, forgetful of place and situation, pt restless and attempts to get up out of bed while asleep, bed alarm on, frequent reorientation, VSS, afebrile, PPPx4, 2+ edema lower legs, afib 110-130s, heparin gtt per protocol, lungs clear and decreased, SOBOE, O2 sats 90-94% on 3L NC, pt desats to mid 80s with activity and anxiety, abd soft with BS, condom cath replaced several times after pt pulled it off, periph IV sites x2 patent, RAC site positional at times, skin warm and dry, meds and labs as ordered, call [place] within reach, continue to monitor
[2023-07-13 06:41] LABS: Blood Urea Nitrogen 20 mg/dL (9-20); Calcium 8.7 mg/dL (8.4-10.2); Carbon Dioxide 25 mmol/L (22-32); Chloride 91 mmol/L (98-107); Estimated Glomerular Filt Rate > 60 mL/min (>60); Glucose 113 mg/dL (80-110); HEMOLYSIS < 15 (0-50); Magnesium 2.1 mg/dL (1.6-2.3); Potassium 4.3 mmol/L (3.4-5.1); Sodium 124 mmol/L (137-145)
[2023-07-13 06:53] LABS: Troponin I < 0.012 ng/mL (0.01-0.034)
[2023-07-13] MEDS: ATORVASTATIN 20 MG TABLET PO (08:30)
[2023-07-13] MEDS: APIXABAN 5 MG TABLET 10 MG PO ×2 (08:30→20:12)
[2023-07-13] MEDS: CARBIDOPA LEVODOPA 2 EACH PO ×4 (08:30→20:11)
--- NOTE | 2023-07-13 08:52 | PM.PN.1 ---
Subjective Subjective Interval history: 77 M admitted with afib RVR, b/l PE, symptoms of heart failure. Echo attempted this AM but rate was still uncontrolled. Rate remains elevated, but BP a bit improved. Will trial furosemide to see how BP responds, he is getting loaded with digoxin. If BP stays improved can attempt to add beta hilda or CCB depending on TTE results. Exam Vital Signs (past 8 hours): - 07/13/23 01:00 07/13/23 01:00 07/13/23 01:30 Temperature Pulse Rate 110 H 121 H Respiratory Rate 21 29 H Blood Pressure 91/50 L Pulse Oximetry 89 L 93 07/13/23 01:30 07/13/23 02:00 07/13/23 02:00 Temperature Pulse Rate 122 H Respiratory Rate 24 Blood Pressure 99/58 L 112/70 Pulse Oximetry 93 07/13/23 02:30 07/13/23 02:30 07/13/23 02:54 Temperature Pulse Rate 119 H 125 H Respiratory Rate 18 Blood Pressure 110/79 110/79 Pulse Oximetry 95 07/13/23 03:00 07/13/23 03:01 07/13/23 03:01 Temperature Pulse Rate 118 H 110 H Respiratory Rate 18 20 Blood Pressure 89/63 L Pulse Oximetry 97 97 07/13/23 03:30 07/13/23 03:30 07/13/23 04:00 Temperature Pulse Rate 125 H 107 H Respiratory Rate 25 H 19 Blood Pressure 98/73 131/82 Pulse Oximetry 96 92 07/13/23 04:00 07/13/23 04:00 07/13/23 04:30 Temperature Pulse Rate 113 H Respiratory Rate 18 Blood Pressure 131/82 128/79 Pulse Oximetry 95 07/13/23 04:30 07/13/23 05:00 07/13/23 05:00 Temperature Pulse Rate 110 H 128 H Respiratory Rate 21 27 H Blood Pressure 146/90 H Pulse Oximetry 94 78 L 07/13/23 05:30 07/13/23 05:30 07/13/23 06:00 Temperature Pulse Rate 127 H Respiratory Rate 24 Blood Pressure 146/90 H 129/98 H Pulse Oximetry 85 L 07/13/23 06:00 07/13/23 06:30 07/13/23 06:30 Temperature Pulse Rate 131 H 135 H Respiratory Rate 26 H 26 H Blood Pressure 150/87 H Pulse Oximetry 93 100 07/13/23 07:00 07/13/23 07:00 07/13/23 07:30 Temperature Pulse Rate 127 H 126 H Respiratory Rate 26 H 23 Blood Pressure 156/84 H Pulse Oximetry 95 97 07/13/23 07:30 07/13/23 08:00 07/13/23 08:30 Temperature Pulse Rate 129 H 123 H Respiratory Rate 28 H 17 Blood Pressure 123/78 Pulse Oximetry 96 97 07/13/23 08:35 07/13/23 08:37 07/13/23 08:37 Temperature Pulse Rate 127 H 124 H Respiratory Rate 23 Blood Pressure 139/86 Pulse Oximetry 99 07/13/23 08:47 Temperature 98.6 F Pulse Rate Respiratory Rate Blood Pressure Pulse Oximetry Oxygen Delivery Method Nasal Cannula Oxygen Flow Rate 2 Narrative Exam Narrative: GEN: no acute distress but mildly uncomfortable appearing, some tremors HEENT: moist mucous membranes, PERRL NECK: trachea midline, no JVD CV: tachycardic, irregularly irregular, no murmurs PULM: mild crackles at bases ABD: soft, nontender, nondistended, no organomegaly EXT: 1-2+ edema of LE's NEURO: awake, alert, oriented, no focal deficits Objective Labs 07/13/23 06:15 07/13/23 06:15 Labs: Laboratory Results - last 24 hr 07/12/23 07/12/23 07/12/23 08:00 08:55 10:30 WBC 12.5 H RBC 3.17 L Hgb 10.2 L Hct 28.9 L MCV 91.2 MCH 32.2 MCHC 35.3 RDW 14.3 Plt Count 134 L Neut % (Auto) 89.1 H Lymph % (Auto) 3.4 L [place] % (Auto) 7.3 Eos % (Auto) 0.1 L Baso % (Auto) 0.1 Neut # (Auto) 92026 H Lymph # (Auto) 400 L [place] # (Auto) 900 Eos # (Auto) 0 Baso # (Auto) 0 PT Cancelled INR Cancelled APTT D-Dimer 4221 H Sodium 122 L Potassium 4.2 Chloride 89 L Carbon Dioxide 23 BUN 21 H Creatinine 0.83 Estimated GFR > 60 BUN/Creatinine Ratio 25.3 H Glucose 117 H Calcium 8.8 Magnesium 1.7 Total Bilirubin 2.2 H AST 40 ALT 14 Alkaline Phosphatase 127 H Troponin I < 0.012 NT-Pro-B Natriuret Pep 6230 H Total Protein 6.5 Albumin 3.4 L Globulin 3.1 Albumin/Globulin Ratio 1.1 Lipase 66 Procalcitonin 0.29 TSH 1.93 Urine Color [place] Urine Appearance Clear Urine pH TNP Ur Specific [place] TNP Urine Protein TNP Urine Glucose (UA) TNP Urine Ketones TNP Urine Occult Blood TNP Urine Nitrate TNP Urine Bilirubin TNP Urine Urobilinogen TNP Ur Leukocyte Esterase TNP Urine RBC 1-5/hpf Urine WBC >100/hpf H Ur Squamous Epith Cells None seen Urine Bacteria Many (>30) H Urine Mucus 1+ H Ur Culture Indicated? Specimen cultured Ur Random Sodium < 5 L Nasal Screen MRSA (PCR) 07/12/23 07/12/23 07/12/23 10:31 13:11 16:41 WBC 12.3 H RBC 3.00 L Hgb 9.6 L Hct 27.2 L MCV 90.8 MCH 32.1 MCHC 35.4 RDW 14.2 Plt Count 130 L Neut % (Auto) Lymph % (Auto) [place] % (Auto) Eos % (Auto) Baso % (Auto) Neut # (Auto) Lymph # (Auto) [place] # (Auto) Eos # (Auto) Baso # (Auto) PT INR APTT 26 D-Dimer Sodium Potassium Chloride Carbon Dioxide BUN Creatinine Estimated GFR BUN/Creatinine Ratio Glucose Calcium Magnesium Total Bilirubin AST ALT Alkaline Phosphatase Troponin I < 0.012 NT-Pro-B Natriuret Pep Total Protein Albumin Globulin Albumin/Globulin Ratio Lipase Procalcitonin TSH Urine Color Urine Appearance Urine pH Ur Specific [place] Urine Protein Urine Glucose (UA) Urine Ketones Urine Occult Blood Urine Nitrate Urine Bilirubin Urine Urobilinogen Ur Leukocyte Esterase Urine RBC Urine WBC Ur Squamous Epith Cells Urine Bacteria Urine Mucus Ur Culture Indicated? Ur Random Sodium Nasal Screen MRSA (PCR) Not detected 07/12/23 07/13/23 07/13/23 19:04 00:54 06:15 WBC 11.0 RBC 3.45 L Hgb 11.2 L Hct 31.7 L MCV 92.0 MCH 32.5 MCHC 35.4 RDW 14.2 Plt Count 137 L Neut % (Auto) 91.0 H Lymph % (Auto) 3.6 L [place] % (Auto) 4.9 Eos % (Auto) 0.1 L Baso % (Auto) 0.4 Neut # (Auto) 93528 H Lymph # (Auto) 400 L [place] # (Auto) 500 Eos # (Auto) 0 Baso # (Auto) 0 PT INR APTT 118 H* D 73 H* D 63 H D-Dimer Sodium 122 L 124 L Potassium 4.3 Chloride 91 L Carbon Dioxide 25 BUN 20 Creatinine 0.74 Estimated GFR > 60 BUN/Creatinine Ratio 27.0 H Glucose 113 H Calcium 8.7 Magnesium 2.1 Total Bilirubin AST ALT Alkaline Phosphatase Troponin I < 0.012 NT-Pro-B Natriuret Pep Total Protein Albumin Globulin Albumin/Globulin Ratio Lipase Procalcitonin TSH Urine Color Urine Appearance Urine pH Ur Specific [place] Urine Protein Urine Glucose (UA) Urine Ketones Urine Occult Blood Urine Nitrate Urine Bilirubin Urine Urobilinogen Ur Leukocyte Esterase Urine RBC Urine WBC Ur Squamous Epith Cells Urine Bacteria Urine Mucus Ur Culture Indicated? Ur Random Sodium Nasal Screen MRSA (PCR) FOR[facility]LY [facility] Medical History Impaired vision BPH (benign prostatic hyperplasia) Constipation Parkinsons disease Prostate cancer Skin cancer Social History household members: spouse Smoking Status: Never smoker alcohol intake: current Assessment & Plan Assessment & Plan narrative: # acute hypoxic resp failure 2/2 pulmonary embolism -presents with 1 week of worsening exertional dyspnea, has been sedentery due to lumbar back pain -CTPA showed bilateral PE without RHS -echo pending -change heparin to apixban 10 mg BID for 7 days, followed by 5 mg BID -requiring 2L NC, wean as able goal 90-96% on therapy. # acute new onset atrial fibrillation with RVR and probable acute heart failure -no history of A-fib per , in RVR to 130's in ED. Likely triggered by PE as patient wore heart monitor previously for 3 yrs per and had no A-fib. -initially put on esmolol drip per cards but dropped BP -cards rec digoxin loading then po, if fails then use amio drip. With BP improvement can also see if BB or CCB can be added. -continue dig 250mcg q6h x6 doses then transition to po dig if effective, no improvement thus far. -echo ordered as above -will need DOAC long-term -received 20 mg IV lasix x1, will continue with 40 mg IV BID today with continued LE edema and shortness of breath. # thrombocytopenia -plts 130k -monitor # acute versus chronic hyponatremia -Na 122, urine sodium <5 but received IV lasix before -repeat sodium 124, likely due to hypervolemia, continue furosemide # Parkinson's disease with hospital delirium -continue home Sinemet and rasagiline -overnight HD#1 became confused, start seroquel for hospital delirium # postural hypotension -continue home midodrine # sleep walking -continue home Klonopin and melatonin # hyperlipidemia -continue home statin Code status is Full code. DVT prophylaxis with apixaban Proxy is [place]. I have reviewed home meds and used all available resources to reconcile the home meds. Case discussed with previous hospitalist, bedside staff, and case management to formulate the above assessment and plan. Dispo - inpatient.
[2023-07-13] MEDS: FUROSEMIDE 40 MG/4 ML VIAL IV ×2 (09:12→17:16)
[2023-07-13] MEDS: QUETIAPINE 25 MG TABLET PO ×2 (11:08→20:11)
--- NOTE | 2023-07-13 15:07 | CM.DANOTE ---
Patient is a 77 yo male who was admitted on 07/12/23 for Weakness. Pt has M[employer] and [employer] for insurance and his PCP is Verito Becker. EMR was reviewed. Per MD, pt with a hx of Parkinsons, prostate CA, CVA and was SOB and admitted for Bilateral PEs and AFIB with RVR. Pt currently on oxygen and waiting for Echo. PT orders likely to be placed tomorrow for eval as pt not yet medically stable for ambulation yet today. SW met bedside with pt while RN was giving Lasix and pt confirms he is feeling quite fatigued and not feeling well and therefore difficult to get clear picture of pt's baseline. Pt confirms he lives in [place] with his spouse and she will likely be visiting this evening and pt states he has become increasingly weak and fatigued the past week. Pt drowsy and closing his eyes. 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 Plan: SW to follow closely for plan of likely MD to order PT eval tomorrow if pt more medically stable and further bedside discussion with pt when more alert and feeling better towards determining discharge planning needs. RAI Catherine Discharge Planning/Care Management Advanced directive, confirm from FAMILY Start: 07/12/23 16:25 Freq: Q24H Status: Active Protocol: Document 07/12/23 16:25 AKP (Rec: 07/12/23 16:26 AKP [id number]) Advance Directive, confirm on record Time 16:25 Person contacted on file Copy received Yes Advanced directive available on record Yes CM Discharge Assessment Start: 07/13/23 15:05 Freq: Status: Active Protocol: Document 07/13/23 15:06 BF (Rec: 07/13/23 15:07 BF [id number]) Discharge Planning Assessment Assigned Sewing Line Baler RAI Simmons DPOA/Assigned Designee Name spouse Socorro Contact Information [phone] Advance Directives? Yes Advance Directives on File Yes History Provided By Patient,Medical Record Has Patient been admitted in last 30 No days? Prior Living Arrangements House Household Members spouse Type of transporation used prior to Drives own vehicle admit Independent with ADL's Yes Is patient alert and oriented? Yes Needs Assistance With Managing Medications Caregiver for Another No Barriers to Discharge No Discharge Plan Home Transportation Arrangement likely spouse Additional Comment follow for PT eval tomorrow to r/o Whiteboard Updated in Patient Room with Yes name and ext. # of Sewing Line Baler Review Status In Process Please Provide Date Initial DC 07/13/23 Assessment Was Performed Next Review Type Continued Stay Review
[2023-07-13] MEDS: OXYCODONE IR 5 MG TABLET PO ×2 (17:39→20:12)
[2023-07-13] MEDS: clonazePAM 0.5 MG TABLET 1.5 MG PO (20:11)
[2023-07-13] MEDS: MELATONIN 3 MG TABLET 5 MG PO (20:11)
[2023-07-14] VITALS (51 sets, daily range): BP systolic 74–124; BP diastolic 52–86; PULSE 53–124; RESP 12–26; TEMP 36.1–37.4; O2SAT 85–100
[2023-07-14] MEDS: OXYCODONE IR 5 MG TABLET PO ×3 (01:01→11:15)
[2023-07-14] MEDS: MIDODRINE HCL 5 MG TABLET 2.5 MG PO ×3 (05:12→16:57)
[2023-07-14 06:21] LABS: Add Manual Diff / Slide Review NO; Basophils Absolute Auto 0 /uL (0-100); Basophils Percent Auto 0.6 % (0-2); Eosinophils Absolute Auto 0 /uL (0-450); Eosinophils Percent Auto 0.3 % (2-4); Hemoglobin 10.3 g/dL (13.5-17.5); Lymphocytes Absolute Auto 500 /uL (1100-4500); Lymphocytes Percent Auto 6.5 % (25-40); Mean Corpuscular HGB Conc 35.4 % (30-36); Mean Corpuscular Hemoglobin 32.4 PG (26-34); Mean Corpuscular Volume 91.7 fL (80-100); Monocytes Absolute Auto 800 /uL (0-900); Monocytes Percent Auto 9.4 % (3-14); Neutrophils Absolute Auto 6700 /uL (1500-7000); Neutrophils Percent Auto 83.2 % (50-75); Platelet Count 133 X10^3/uL (150-400); Red Blood Cell Count 3.16 X10^6/uL (4.5-5.9); Red Cell Distribution Width 14.1 % (11.6-14.8); White Blood Cell Count 8.1 X10^3/uL (4.5-11.0)
[2023-07-14 06:39] LABS: BUN Creatinine Ratio 14.5 (6-22); Blood Urea Nitrogen 20 mg/dL (9-20); Calcium 8.3 mg/dL (8.4-10.2); Carbon Dioxide 27 mmol/L (22-32); Chloride 92 mmol/L (98-107); Estimated Glomerular Filt Rate 53 mL/min (>60); Glucose 99 mg/dL (80-110); HEMOLYSIS < 15 (0-50); Potassium 3.7 mmol/L (3.4-5.1); Sodium 124 mmol/L (137-145)
[2023-07-14 07:00] LABS: Magnesium 1.9 mg/dL (1.6-2.3)
[2023-07-14] MEDS: ATORVASTATIN 20 MG TABLET PO (08:01)
[2023-07-14] MEDS: APIXABAN 5 MG TABLET 10 MG PO ×2 (08:01→21:34)
[2023-07-14] MEDS: QUETIAPINE 25 MG TABLET PO ×2 (08:02→21:35)
[2023-07-14] MEDS: FUROSEMIDE 40 MG/4 ML VIAL IV (08:02)
[2023-07-14] MEDS: CARBIDOPA LEVODOPA 2 EACH PO ×4 (08:02→21:32)
--- NOTE | 2023-07-14 10:53 | CM.DPC ---
DCP Cont. Reviewed EMR and team rounds for status updates. Pt continues to feel weak/fatigued. Hospitalist placed PT/OT eval this morning, pending. Continue to monitor for PT/OT evaluation recommendations for d/c, and whether pt will need HH or not for returning home.
--- NOTE | 2023-07-14 12:42 | PC.NURSE ---
0900 Taylor cath not draining, irrigated with normal saline without success. Bladder scan done, 650 noted in bladder. Catheter removed and pt attempted to urinate in urinal without success. 16ga Fr. Coudet catheter inserted and obtained 1350cc bloody urine. notified.
--- NOTE | 2023-07-14 13:45 | PT.IIE ---
Current Diagnoses Other pulmonary embolism without acute cor pulmonale (07/12/23) Retention of urine, unspecified (07/12/23) Medical History (Last Reviewed 07/12/23 @ 07:57 by Kayla Carlson MD) BPH (benign prostatic hyperplasia) Constipation Impaired vision Parkinsons disease Prostate cancer Skin cancer Physical Therapy Inpatient Evaluation/Re-Eval M1 PT/OT-IP Prior Functional Status Start: 07/14/23 14:40 Freq: NEEDED Status: Active Protocol: Document 07/14/23 13:45 AB (Rec: 07/14/23 15:03 AB [id number]) Medical Review Prior Functional Status Medical History Reviewed Yes Communication able to make needs known Mobility and Gait per spouse: pt was independent with all mobilities and ambulation without AD but was needing increase assistance for the last month due to LBP flare up per spouse. pt was not moving much due to LBP but was started to get better and moving a little better but then started to have difficulty with breathing this week warranting to go the hospital. Social History Household Members spouse Living Arrangements House Number of Floors (Floors) Two Floors Number of Stairs To Enter/Railing? 2 platform steps to enter the house without rails 2 platform steps to get to bedroom level without rails Home Environment Tub/Shower Home Equipment Front Wheel Walker,Four Wheel Walker,Raised Toilet Seat w/ Armrests,Tub Transfer Bench, Hand Held Shower,Grab Bars In Shower Additional Social History Comment pt has an adjustable bed M2 PT-IP Current Condition Start: 07/14/23 14:40 Freq: NEEDED Status: Active Protocol: Document 07/14/23 13:45 AB (Rec: 07/14/23 15:03 AB [email or web address]) Physical Therapy Current Condition Current Condition Evaluation Date 07/14/23 Treatment Diagnosis PE; Afib; difficulty in walking Onset Date 07/12/23 M3 PT-IP Subjective Start: 07/14/23 14:40 Freq: NEEDED Status: Active Protocol: Document 07/14/23 13:45 AB (Rec: 07/14/23 15:03 AB [email or web address]) Subjective Physical Therapy Visit Type Type Initial Evaluation Visit Start Time 13:45 Visit Stop Time 14:30 Total Visit Minutes 45 Number of PARKING ENFORCEMENT OFFICER Visits 0 Physical Therapy Visit Comments Patient Comments pt is agreeable to do PT M4 PT-IP Mobility and Gait Start: 07/14/23 14:40 Freq: NEEDED Status: Active Protocol: Document 07/14/23 13:45 AB (Rec: 07/14/23 15:03 AB [id number]) PT-Bed Mobility Assessment Rolling Type of Rolling Log Rolling,Roll to Left Level of Assist Moderate Assistance,Maximal Assistance,1 Person Assistance Supine to Sit Supine to Sit Moderate Assistance,Maximum Assistance,1 Person Assistance ,Head of Bed Elevated,Bedrails PT-Transfer Assessment Sit to and From Stand Sit to and from Stand Minimal Assistance,1 Person Assistance,Use of Upper Extremities Equipment Transfer Assistive Device Gait Belt,Front Wheeled Walker Orthotic/Prosthetic Devices or Brace: No Transfers Transfer Destination Chair Transfer Technique Stand Step Pivot Transfer Ability Level of Assist Minimal Assistance,1 Person Assistance,Use of Upper Extremities Comments Mobility Comments pt supine in bed. BP in supine: 107/68 O2 sat at RA 97 %. spouse in room and provided PLOF and home set up info. pt has chronic LBP but with recent flare up per spouse. pt is aware of log roll bed mobility. pt completed log roll bed mobility supine to sit requiring mod to max A and max cues. c/o dizziness. BP in sittin/71. O2 sat at RA 93-94%. pt able to sit on EOB SBA and tolerate another 2 minutes and BP checked again: 101/58. pt completed sit to stand min A and cues for techniques and safety. ambulated ~ 10 ft using FWW min A and c/o dizziness needing to sit down. pt sat on EOB. BP checked: 92/64. pt rested. positioned chair next to pt. pt completed sit to stand min A from EOB and completed step transfer to chair using FWW min A. positioned pt on the chair. BP checked again: 77/49. elevated LE up. nurse in room. BP checked again after restin/56. call light and table placed within reach. Gait Assessment Gait Gait Assistance Required: Minimum Assistance Distance (Feet) 10 Able to Maintain Weight Bearing Status Yes During Gait Assistive Devices Assistive Device Gait Belt,Front Wheeled Walker Orthotic/Prosthetic Devices or Brace: No Gait Deviations General Gait Pattern Decreased Stride Length, Decreased Feet Clearance Factors Limiting Gait Function Factors Limiting Gait Function Decreased Activity Tolerance, Decreased Strength,Poor Balance,Poor Safety Awareness, Respiratory Distress Comments Gait Comments slight L knee buckling noted but with recovery. PT-Balance Assessment Sitting Balance and Reactions Static Sitting Balance Ability Normal Dynamic Sitting Balance Ability Good Standing Balance and Reactions Static Standing Balance Ability Fair Dynamic Standing Balance Ability Poor Device Used FWW M5 PT-IP Objective Assessments Start: 07/14/23 14:40 Freq: NEEDED Status: Active Protocol: Document 07/14/23 13:45 AB (Rec: 07/14/23 15:03 AB [id number]) Orientation Orientation/Cognition Level of Alertness Alert Orientation Name,Place,Situation Language Function Ability No Deficits Noted Safety Awareness Decreased Safety Awareness Memory Description No Deficits Noted Gross Range of Motion Lower Extremity ROM Assessment Within Functional Limits Strength Lower Extremity Strength Assessment Bilaterally Impaired Comments Strength Comments RLE: 3+/5 LLE: 4-/5 Muscle Tone Muscle Tone WNL Yes M6 PT-IP Treatment Start: 07/14/23 14:40 Freq: NEEDED Status: Active Protocol: Document 07/14/23 13:45 AB (Rec: 07/14/23 15:03 AB [id number]) Physical Therapy Treatment Education Education Provided Safety M7 PT-IP Assessment and Plan Start: 07/14/23 14:40 Freq: NEEDED Status: Active Protocol: Document 07/14/23 13:45 AB (Rec: 07/14/23 15:03 AB [email or web address]) PT Summary Assessment and Plan Potential Rehabilitation Potential Fair Status of Condition at Evaluation Evolving Summary Impairments Pain,ROM,Strength,Balance, Coordination,Sensation,Tone, Cognition,Bed Mobility, Transfers,Gait,Activity Tolerance Assessment Summary Pt is a 77 y/o M who presented to the ED with SOB. pt admitted for bilateral PE and A-fib. pt with dx of PD and has h/o post prandial hypotension that is PD related per MD note. pt currently requiring mod to max A for bed mobility and min A for transfers using FWW. pt with limited ambulation and only able to ambulate ~ 10 ft with c/o dizziness and decrease BP . pt lives with spouse and spouse has been assisting pt at home. will conduct caregiver training when appropriate as well as stair climbing training. will continue to assess progress. Goals Bed Mobility Goal Independent Transfer Goal Independent,Front Wheeled Walker Gait Goal Independent,Front Wheel Walker Gait Distance 100 Other Goals improve transfers and ambulation using LRAD ~ 200 ft SBA up/down 2 platform steps using LRAD SBA Days to Meet Goals 10 Frequency of Treatment Frequency Of Treatment Once a Day Treatment Plan Physical Therapy Treatment Plan Bed Mobility Training,Transfer Training,Gait Training, Therapeutic Exercise,Balance Retraining,Discharge Planning, Hot or Cold Pack,Neuromuscular Re-ed,Coordination Retraining ,Manual Therapy Precautions Other Precautions falls; BP Recommendations To Nursing Amount of Assist Needed 1 Person Assist Discharge Recommendations PT Discharge Recommendations Home with 24/ Assist Available,Home Health Transportation Needs at Discharge Private Vehicle
--- NOTE | 2023-07-14 13:50 | PM.PN.1 ---
Subjective Subjective Interval history: 77 M admitted with afib RVR, b/l PE, symptoms of heart failure. Echo unchanged with EF 55-60%. Rate is generally improved after addition of digoxin. BP soft with diuresis. If BP improved can attempt to add beta hilda or CCB Exam Vital Signs (past 8 hours): - 07/14/23 06:00 07/14/23 06:30 07/14/23 07:00 Temperature Pulse Rate 111 H 110 H Respiratory Rate 13 15 Blood Pressure Pulse Oximetry Oxygen Delivery Method Room Air Oxygen Flow Rate 07/14/23 07:00 07/14/23 07:30 07/14/23 07:58 Temperature Pulse Rate 109 H 118 H Respiratory Rate 20 22 Blood Pressure 118/84 Pulse Oximetry Oxygen Delivery Method Oxygen Flow Rate 07/14/23 07:58 07/14/23 08:00 07/14/23 08:00 Temperature 99.3 F Pulse Rate 119 H 97 H 116 H Respiratory Rate 21 17 20 Blood Pressure 118/84 Pulse Oximetry 96 95 95 Oxygen Delivery Method Oxygen Flow Rate 0 07/14/23 08:30 07/14/23 09:00 07/14/23 09:30 Temperature Pulse Rate 119 H 111 H 109 H Respiratory Rate 19 16 17 Blood Pressure Pulse Oximetry 95 93 Oxygen Delivery Method Oxygen Flow Rate 07/14/23 10:00 07/14/23 10:00 07/14/23 10:18 Temperature Pulse Rate 107 H Respiratory Rate 16 Blood Pressure 108/68 Pulse Oximetry 97 93 Oxygen Delivery Method Room Air Oxygen Flow Rate 07/14/23 10:18 07/14/23 10:30 07/14/23 11:00 Temperature Pulse Rate 114 H 113 H 121 H Respiratory Rate 20 16 25 H Blood Pressure Pulse Oximetry 85 L Oxygen Delivery Method Oxygen Flow Rate 07/14/23 11:30 07/14/23 11:30 07/14/23 11:46 Temperature 98.2 F Pulse Rate 107 H 95 H Respiratory Rate 15 14 Blood Pressure 104/62 104/62 Pulse Oximetry 93 Oxygen Delivery Method Oxygen Flow Rate 07/14/23 11:46 07/14/23 12:00 Temperature Pulse Rate 101 H 94 H Respiratory Rate 20 20 Blood Pressure Pulse Oximetry Oxygen Delivery Method Oxygen Flow Rate Oxygen Delivery Method Room Air Oxygen Flow Rate 0 Narrative Exam Narrative: GEN: no acute distress but mildly uncomfortable appearing, some tremors HEENT: moist mucous membranes, PERRL NECK: trachea midline, no JVD CV: tachycardic, irregularly irregular, no murmurs PULM: mild crackles at bases ABD: soft, nontender, nondistended, no organomegaly EXT: 1-2+ edema of LE's NEURO: awake, alert, oriented, no focal deficits Objective Labs 07/14/23 06:10 07/14/23 06:10 Labs: Laboratory Results - last 24 hr 07/14/23 06:10 WBC 8.1 RBC 3.16 L Hgb 10.3 L Hct 29.0 L MCV 91.7 MCH 32.4 MCHC 35.4 RDW 14.1 Plt Count 133 L Neut % (Auto) 83.2 H Lymph % (Auto) 6.5 L [place] % (Auto) 9.4 Eos % (Auto) 0.3 L Baso % (Auto) 0.6 Neut # (Auto) 6700 Lymph # (Auto) 500 L [place] # (Auto) 800 Eos # (Auto) 0 Baso # (Auto) 0 Sodium 124 L Potassium 3.7 Chloride 92 L Carbon Dioxide 27 BUN 20 Creatinine 1.38 H Estimated GFR 53 L BUN/Creatinine Ratio 14.5 Glucose 99 Calcium 8.3 L Magnesium 1.9 PFSH Medical History Impaired vision BPH (benign prostatic hyperplasia) Constipation Parkinsons disease Prostate cancer Skin cancer Social History household members: spouse Smoking Status: Never smoker alcohol intake: current Assessment & Plan Assessment & Plan narrative: # acute hypoxic resp failure 2/2 pulmonary embolism -presents with 1 week of worsening exertional dyspnea, has been sedentery due to lumbar back pain -CTPA showed bilateral PE without RHS -echo unchanged from prior with EF 55-60% -changed initial heparin to apixban 10 mg BID for 7 days, followed by 5 mg BID -required 2L NC, wean as able goal 90-96% on therapy, now off of supplemental oxygen with diuresis. # acute new onset atrial fibrillation with RVR and acute diastolic heart failure -no history of A-fib per , in RVR to 130's in ED. Likely triggered by PE as patient wore heart monitor previously for 3 yrs per and had no A-fib. -initially put on esmolol drip per cards but dropped BP -cards rec digoxin loading then po, if fails then use amio drip. His rate is slightly improved but near 110. Will reduce diuretic given hypoxia resolution in hopes of being able to add small amount of beta hilda. -continued dig 250mcg q6h x6 doses then transitioned to po dig at 250 mcg daily. -echo as above -will need DOAC long-term -received 20 mg IV lasix x1, continued with 40 mg IV BID today with continued LE edema. With resolution of hypoxia will further reduce to 40 mg PO BID in hopes of being able to add beta hilda or CCB for additional rate control. # thrombocytopenia -plts around 130k -monitor # acute versus chronic hyponatremia -Na 122, urine sodium <5 but received IV lasix before -repeat sodium 124, likely due to hypervolemia, continue furosemide as noted above. Remains 124 today. # Parkinson's disease with hospital delirium -continue home Sinemet and rasagiline -overnight HD#1 became confused, started seroquel for hospital delirium with improvement today. # postural hypotension -continue home midodrine # sleep walking -continue home Klonopin and melatonin # hyperlipidemia -continue home statin Code status is Full code. DVT prophylaxis with apixaban Proxy is [place]. I have reviewed home meds and used all available resources to reconcile the home meds. Case discussed with previous hospitalist, bedside staff, and case management to formulate the above assessment and plan. Dispo - inpatient. Will get PT/OT evaluations to see if SNF recommended.
[2023-07-14] MEDS: FUROSEMIDE 40 MG TABLET PO (16:42)
[2023-07-14] MEDS: DIGOXIN 0.125 MG TABLET 0.25 MG PO (16:42)
[2023-07-14] MEDS: MELATONIN 3 MG TABLET 5 MG PO (21:33)
[2023-07-14] MEDS: SENNOSIDES 8.6 MG TABLET PO (21:33)
[2023-07-14] MEDS: clonazePAM 0.5 MG TABLET 1.5 MG PO (21:33)
[2023-07-15] VITALS (27 sets, daily range): BP systolic 92–117; BP diastolic 53–62; PULSE 56–100; RESP 16–22; TEMP 36.2–36.7; O2SAT 92–98
[2023-07-15 05:01] LABS: Hematocrit 26.9 % (41-53); Hemoglobin 9.7 g/dL (13.5-17.5); Mean Corpuscular Hemoglobin 32.6 PG (26-34); Mean Corpuscular Volume 90.5 fL (80-100); Platelet Count 141 X10^3/uL (150-400); Red Blood Cell Count 2.97 X10^6/uL (4.5-5.9); Red Cell Distribution Width 14.4 % (11.6-14.8); White Blood Cell Count 6.3 X10^3/uL (4.5-11.0)
[2023-07-15 05:02] LABS: Add Manual Diff / Slide Review YES
[2023-07-15 05:08] LABS: BUN Creatinine Ratio 21.1 (6-22); Blood Urea Nitrogen 20 mg/dL (9-20); Calcium 8.1 mg/dL (8.4-10.2); Carbon Dioxide 29 mmol/L (22-32); Chloride 90 mmol/L (98-107); Estimated Glomerular Filt Rate > 60 mL/min (>60); Glucose 95 mg/dL (80-110); HEMOLYSIS 31 (0-50); Magnesium 1.8 mg/dL (1.6-2.3); Potassium 3.6 mmol/L (3.4-5.1); Sodium 125 mmol/L (137-145)
[2023-07-15] MEDS: MIDODRINE HCL 5 MG TABLET 2.5 MG PO ×3 (05:38→17:16)
[2023-07-15 05:45] LABS: Neutrophils Absolute Manual 4284 /uL (3000-5900); Total Cells Counted 100
[2023-07-15 05:46] LABS: Anisocytosis 1+; Smudge Cells 1+
[2023-07-15] MEDS: QUETIAPINE 25 MG TABLET PO ×2 (09:29→20:54)
[2023-07-15] MEDS: ATORVASTATIN 20 MG TABLET PO (09:29)
[2023-07-15] MEDS: CARBIDOPA LEVODOPA 2 EACH PO ×4 (09:29→20:54)
[2023-07-15] MEDS: APIXABAN 5 MG TABLET 10 MG PO ×2 (09:29→20:56)
[2023-07-15] MEDS: SODIUM CHLORIDE 0.9% 1,000 ML 1000 ML IV (12:11)
[2023-07-15] MEDS: SODIUM CHLORIDE 0.9% 1,000 ML 100 ML IV ×2 (13:10→23:41)
--- NOTE | 2023-07-15 13:28 | CM.DPC ---
Addendum entered by Claritza Sheth R.N. 07/15/23 15:30: Faxed PASSR over to [place], to review, for exemption two, patient is currently on Clonazepam at night for restlessness. Will need hospitalist signature. Original Note: DCP Cont: Nurse, Selma, came in and indicated that patient and spouse feel that jail may benefit patient. She is uncomfortable with him going home being weak, and may need a catheter. Went over the Medicare Choice List, encourage her to pick three facilities. Her first choice is [facility] (they may have male beds Monday), second is [facility] in [place], third is [facility]. Called Sury at [facility], she will review, faxed all three facilities. Left a message with Michela at [facility], and left a message with Archana at [facility]. P: DCP to continue to follow. Have placed all three referrals to all three facilities, left messages with [facility] and [facility], and Sury at [facility] will review. Claritza Sheth RN/Hugh Clark
--- NOTE | 2023-07-15 14:00 | PT.IPTN ---
Current Diagnoses Other pulmonary embolism without acute cor pulmonale (07/12/23) Retention of urine, unspecified (07/12/23) Physical Therapy Treatment Note M2 PT-IP Current Condition Start: 07/14/23 14:40 Freq: NEEDED Status: Active Protocol: Document 07/14/23 13:45 AB (Rec: 07/14/23 15:03 AB [id number]) Physical Therapy Current Condition Current Condition Evaluation Date 07/14/23 Treatment Diagnosis PE; Afib; difficulty in walking Onset Date 07/12/23 M3 PT-IP Subjective Start: 07/14/23 14:40 Freq: NEEDED Status: Active Protocol: Document 07/15/23 14:29 TS (Rec: 07/15/23 14:40 TS [id number]) Subjective Physical Therapy Visit Type Type Treatment Note Visit Start Time 14:00 Visit Stop Time 14:29 Total Visit Minutes 29 Notes Family present Number of ATHLETIC COACH Visits 1 Physical Therapy Visit Comments Patient Comments Pt found resting in bed, reports feeling better, is off of o2, agreeable to PT. M4 PT-IP Mobility and Gait Start: 07/14/23 14:40 Freq: NEEDED Status: Active Protocol: Document 07/15/23 14:29 TS (Rec: 07/15/23 14:40 TS [id number]) PT-Bed Mobility Assessment Supine to Sit Supine to Sit Contact Guard Assistance,1 Person Assistance,Head of Bed Elevated,Bedrails Scooting Scooting to Edge of Bed Contact Guard Assistance PT-Transfer Assessment Sit to and From Stand Sit to and from Stand Contact Guard Assistance, Minimal Assistance,Moderate Assistance,1 Person Assistance ,Use of Upper Extremities Comments Mobility Comments Pt found resting in bed, has no o2 needs, BP 94/56 supine. Supine to sit CGA with HOB elevated. Sit to stand from bed x1 ModA, x1 Ba and x1 CGA, pt provided cues for weight forward and feet underneath him. He ambulated 2x10' to [facility] ot bed, does report some dizziness. Pt transferred chair, peformed knee ext/flex, seated march and ankle pumps. Pt was left in chair, all needs met. Gait Assessment Gait Gait Assistance Required: Contact Guard Assist Distance (Feet) 20 Able to Maintain Weight Bearing Status Yes During Gait Assistive Devices Assistive Device Gait Belt,Front Wheeled Walker Orthotic/Prosthetic Devices or Brace: No Gait Deviations General Gait Pattern Decreased Stride Length, Decreased Feet Clearance Factors Limiting Gait Function Factors Limiting Gait Function Decreased Activity Tolerance, Decreased Strength,Poor Balance,Poor Safety Awareness, Respiratory Distress Comments Gait Comments Continues to have some buckling in LEs but no LOB. Stair Climbing Assessment Comments Stair Climbing Comments Not at this time. PT-Balance Assessment Sitting Balance and Reactions Static Sitting Balance Ability Normal Dynamic Sitting Balance Ability Good Standing Balance and Reactions Static Standing Balance Ability Fair Dynamic Standing Balance Ability Fair Device Used FWW M5 PT-IP Objective Assessments Start: 07/14/23 14:40 Freq: NEEDED Status: Active Protocol: Document 07/14/23 13:45 AB (Rec: 07/14/23 15:03 AB [email or web address]) Orientation Orientation/Cognition Level of Alertness Alert Orientation Name,Place,Situation Language Function Ability No Deficits Noted Safety Awareness Decreased Safety Awareness Memory Description No Deficits Noted Gross Range of Motion Lower Extremity ROM Assessment Within Functional Limits Strength Lower Extremity Strength Assessment Bilaterally Impaired Comments Strength Comments RLE: 3+/5 LLE: 4-/5 Muscle Tone Muscle Tone WNL Yes M6 PT-IP Treatment Start: 07/14/23 14:40 Freq: NEEDED Status: Active Protocol: Document 07/15/23 14:29 TS (Rec: 07/15/23 14:40 TS [id number]) Physical Therapy Treatment Education Education Provided Safety M7 PT-IP Assessment and Plan Start: 07/14/23 14:40 Freq: NEEDED Status: Active Protocol: Document 07/15/23 14:29 TS (Rec: 07/15/23 14:40 TS [id number]) PT Summary Assessment and Plan Potential Rehabilitation Potential Fair Summary Impairments Pain,ROM,Strength,Balance, Coordination,Sensation,Tone, Cognition,Bed Mobility, Transfers,Gait,Activity Tolerance Progress Towards Goals Slow Progress due to Medical Issues,Slow Progress due to Activity Tolerance Assessment Summary William is making some progress with his mobility but remains limited by poor activity tolerance and ongoing medical issues. Pt progressed his bed mobility to CGA with HOB elevated. He required ModA to stand x1, Ba x1 and CGA x1, when provided cues pt improves . He progressed his gait to ~ 20' SBA with FWW, requires seated rest break after ~10' due to dizziness, pt has history of low BP. PT is recommending SNF rehab at this time to improve functional mobility, activity tolerance and strength before safe d/c home. Goals Bed Mobility Goal Independent Transfer Goal Independent,Front Wheeled Walker Gait Goal Independent,Front Wheel Walker Gait Distance 100 Other Goals improve transfers and ambulation using LRAD ~ 200 ft SBA up/down 2 platform steps using LRAD SBA Days to Meet Goals 10 Frequency of Treatment Frequency Of Treatment Once a Day Treatment Plan Physical Therapy Treatment Plan Bed Mobility Training,Transfer Training,Gait Training, Therapeutic Exercise,Balance Retraining,Discharge Planning, Hot or Cold Pack,Neuromuscular Re-ed,Coordination Retraining ,Manual Therapy Precautions Other Precautions falls; BP Recommendations To Nursing Amount of Assist Needed 1 Person Assist Discharge Recommendations PT Discharge Recommendations SNF Rehab Transportation Needs at Discharge Private Vehicle
--- NOTE | 2023-07-15 16:50 | PM.PN.1 ---
Subjective Subjective Interval history: He appears fatigued. He is not very short of breath, and is now off oxygen. His sodium remains low. Exam Vital Signs (past 8 hours): - 07/15/23 08:54 07/15/23 08:54 07/15/23 09:00 Temperature Pulse Rate 78 72 Respiratory Rate Blood Pressure 117/60 Pulse Oximetry 97 97 Oxygen Delivery Method 07/15/23 09:30 07/15/23 10:00 07/15/23 10:00 Temperature 97.4 F L Pulse Rate 68 73 Respiratory Rate 20 Blood Pressure 117/60 Pulse Oximetry 97 97 97 Oxygen Delivery Method Room Air 07/15/23 12:00 Temperature Pulse Rate 79 Respiratory Rate 20 Blood Pressure 92/54 L Pulse Oximetry 97 Oxygen Delivery Method Oxygen Delivery Method Room Air Oxygen Flow Rate 0 Narrative Exam Narrative: GEN: no acute distress HEENT: moist mucous membranes, PERRL NECK: trachea midline, no JVD CV: tachycardic, irregularly irregular, no murmurs PULM: mild crackles at bases ABD: soft, nontender, nondistended, no organomegaly EXT: no edema NEURO: awake, alert, oriented, no focal deficits Objective Labs 07/15/23 04:31 07/15/23 04:31 Labs: Laboratory Results - last 24 hr 07/15/23 04:31 WBC 6.3 RBC 2.97 L Hgb 9.7 L Hct 26.9 L MCV 90.5 MCH 32.6 MCHC 36.0 RDW 14.4 Plt Count 141 L Neut % (Auto) Not Reportable Lymph % (Auto) Not Reportable [place] % (Auto) Not Reportable Eos % (Auto) Not Reportable Baso % (Auto) Not Reportable Lymph # (Auto) Not Reportable [place] # (Auto) Not Reportable Baso # (Auto) Not Reportable Total Counted 100 Seg Neutrophils % 68.0 Lymphocytes % (Manual) 14.0 L Monocytes % (Manual) 14.0 H Eosinophils % (Manual) 2.0 Myelocytes % 2.0 H Neutrophils # (Manual) 4284 Smudge Cells 1+ H RBC Morphology See below Anisocytosis 1+ H Sodium 125 L Potassium 3.6 Chloride 90 L Carbon Dioxide 29 BUN 20 Creatinine 0.95 Estimated GFR > 60 BUN/Creatinine Ratio 21.1 Glucose 95 Calcium 8.1 L Magnesium 1.8 PFSH Medical History Impaired vision BPH (benign prostatic hyperplasia) Constipation Parkinsons disease Prostate cancer Skin cancer Social History household members: spouse Smoking Status: Never smoker alcohol intake: current Assessment & Plan Assessment & Plan narrative: # acute hypoxic resp failure 2/2 pulmonary embolism -presents with 1 week of worsening exertional dyspnea, has been sedentery due to lumbar back pain -CTPA showed bilateral PE without RHS -echo unchanged from prior with EF 55-60% -changed initial heparin to apixban 10 mg BID for 7 days, followed by 5 mg BID -required 2L NC, wean as able goal 90-96% on therapy, now off of supplemental oxygen # acute new onset atrial fibrillation with RVR -no history of A-fib per , in RVR to 130's in ED. Likely triggered by PE as patient wore heart monitor previously for 3 yrs per and had no A-fib. -initially put on esmolol drip per cards but dropped BP -cards rec digoxin loading then po, if fails then use amio drip. His rate is slightly improved but near 110. Will reduce diuretic given hypoxia resolution in hopes of being able to add small amount of beta hilda. -continued dig 250mcg q6h x6 doses then transitioned to po dig at 250 mcg daily. -echo as above -will need DOAC long-term -received 20 mg IV lasix x1, continued with 40 mg IV BID today with continued LE edema. With resolution of hypoxia then developed tess and diuresis was stopped # hyponatremia -suspect possibly secondary to hypovolemia ---he did have creatinine rise with lasix, which improved with fluid, his respiratory status was thought possibly secondary to chf, but perhaps it was entirely secondary to PE -will trial fluids to see if sodium improves enough to discharge, watch for worsening respiratory status # thrombocytopenia -plts around 130k -monitor # Parkinson's disease with hospital delirium -continue home Sinemet and rasagiline -overnight HD#1 became confused, started seroquel for hospital delirium with improvement # postural hypotension -continue home midodrine # sleep walking -continue home Klonopin and melatonin # hyperlipidemia -continue home statin
[2023-07-15] MEDS: DIGOXIN 0.125 MG TABLET 0.25 MG PO (17:15)
[2023-07-15] MEDS: SENNOSIDES 8.6 MG TABLET PO (17:20)
[2023-07-15] MEDS: MELATONIN 3 MG TABLET 5 MG PO (20:54)
[2023-07-15] MEDS: clonazePAM 0.5 MG TABLET 1.5 MG PO (20:54)
[2023-07-16] VITALS: BP 91/69; PULSE 93; RESP 20; TEMP 36.1; O2SAT 95
[2023-07-16 02:00] VITALS: O2SAT 95
[2023-07-16 04:00] VITALS: BP 116/67; PULSE 78; RESP 20; TEMP 36.7; O2SAT 96
[2023-07-16 05:00] LABS: Add Manual Diff / Slide Review NO; Basophils Absolute Auto 0 /uL (0-100); Basophils Percent Auto 0.2 % (0-2); Eosinophils Absolute Auto 100 /uL (0-450); Eosinophils Percent Auto 1.9 % (2-4); Hemoglobin 9.8 g/dL (13.5-17.5); Lymphocytes Absolute Auto 900 /uL (1100-4500); Lymphocytes Percent Auto 15.3 % (25-40); Mean Corpuscular Hemoglobin 31.9 PG (26-34); Mean Corpuscular Volume 91.2 fL (80-100); Monocytes Absolute Auto 1000 /uL (0-900); Monocytes Percent Auto 15.8 % (3-14); Neutrophils Absolute Auto 4100 /uL (1500-7000); Neutrophils Percent Auto 66.8 % (50-75); Platelet Count 149 X10^3/uL (150-400); Red Blood Cell Count 3.07 X10^6/uL (4.5-5.9); Red Cell Distribution Width 14.2 % (11.6-14.8); White Blood Cell Count 6.2 X10^3/uL (4.5-11.0)
[2023-07-16 05:06] LABS: BUN Creatinine Ratio 19.3 (6-22); Blood Urea Nitrogen 16 mg/dL (9-20); Calcium 8.2 mg/dL (8.4-10.2); Carbon Dioxide 32 mmol/L (22-32); Chloride 95 mmol/L (98-107); Estimated Glomerular Filt Rate > 60 mL/min (>60); Glucose 94 mg/dL (80-110); HEMOLYSIS < 15 (0-50); Potassium 3.6 mmol/L (3.4-5.1); Sodium 129 mmol/L (137-145)
[2023-07-16] MEDS: MIDODRINE HCL 5 MG TABLET 2.5 MG PO ×2 (06:22→13:05)
[2023-07-16 08:00] VITALS: BP 103/58; PULSE 67; RESP 18; TEMP 36.6; O2SAT 91
[2023-07-16] MEDS: QUETIAPINE 25 MG TABLET PO (08:54)
[2023-07-16] MEDS: APIXABAN 5 MG TABLET 10 MG PO (08:54)
[2023-07-16] MEDS: ATORVASTATIN 20 MG TABLET PO (08:54)
[2023-07-16] MEDS: CARBIDOPA LEVODOPA 2 EACH PO ×2 (08:58→13:05)
--- NOTE | 2023-07-16 09:41 | PT.IPTN ---
Current Diagnoses Other pulmonary embolism without acute cor pulmonale (07/12/23) Retention of urine, unspecified (07/12/23) Physical Therapy Treatment Note M2 PT-IP Current Condition Start: 07/14/23 14:40 Freq: NEEDED Status: Discharge Protocol: Document 07/14/23 13:45 AB (Rec: 07/14/23 15:03 AB [email or web address]) Physical Therapy Current Condition Current Condition Evaluation Date 07/14/23 Treatment Diagnosis PE; Afib; difficulty in walking Onset Date 07/12/23 M3 PT-IP Subjective Start: 07/14/23 14:40 Freq: NEEDED Status: Discharge Protocol: Document 07/15/23 14:29 TS (Rec: 07/15/23 14:40 TS [id number]) Subjective Physical Therapy Visit Type Type Treatment Note Visit Start Time 14:00 Visit Stop Time 14:29 Total Visit Minutes 29 Notes Family present Number of MARKETING CONSULTANT Visits 1 Physical Therapy Visit Comments Patient Comments Pt found resting in bed, reports feeling better, is off of o2, agreeable to PT. M4 PT-IP Mobility and Gait Start: 07/14/23 14:40 Freq: NEEDED Status: Discharge Protocol: Document 07/15/23 14:29 TS (Rec: 07/15/23 14:40 TS [id number]) PT-Bed Mobility Assessment Supine to Sit Supine to Sit Contact Guard Assistance,1 Person Assistance,Head of Bed Elevated,Bedrails Scooting Scooting to Edge of Bed Contact Guard Assistance PT-Transfer Assessment Sit to and From Stand Sit to and from Stand Contact Guard Assistance, Minimal Assistance,Moderate Assistance,1 Person Assistance ,Use of Upper Extremities Comments Mobility Comments Pt found resting in bed, has no o2 needs, BP 94/56 supine. Supine to sit CGA with HOB elevated. Sit to stand from bed x1 ModA, x1 Ba and x1 CGA, pt provided cues for weight forward and feet underneath him. He ambulated 2x10' to [facility] ot bed, does report some dizziness. Pt transferred chair, peformed knee ext/flex, seated march and ankle pumps. Pt was left in chair, all needs met. Gait Assessment Gait Gait Assistance Required: Contact Guard Assist Distance (Feet) 20 Able to Maintain Weight Bearing Status Yes During Gait Assistive Devices Assistive Device Gait Belt,Front Wheeled Walker Orthotic/Prosthetic Devices or Brace: No Gait Deviations General Gait Pattern Decreased Stride Length, Decreased Feet Clearance Factors Limiting Gait Function Factors Limiting Gait Function Decreased Activity Tolerance, Decreased Strength,Poor Balance,Poor Safety Awareness, Respiratory Distress Comments Gait Comments Continues to have some buckling in LEs but no LOB. Stair Climbing Assessment Comments Stair Climbing Comments Not at this time. PT-Balance Assessment Sitting Balance and Reactions Static Sitting Balance Ability Normal Dynamic Sitting Balance Ability Good Standing Balance and Reactions Static Standing Balance Ability Fair Dynamic Standing Balance Ability Fair Device Used FWW M5 PT-IP Objective Assessments Start: 07/14/23 14:40 Freq: NEEDED Status: Discharge Protocol: Document 07/14/23 13:45 AB (Rec: 07/14/23 15:03 AB [id number]) Orientation Orientation/Cognition Level of Alertness Alert Orientation Name,Place,Situation Language Function Ability No Deficits Noted Safety Awareness Decreased Safety Awareness Memory Description No Deficits Noted Gross Range of Motion Lower Extremity ROM Assessment Within Functional Limits Strength Lower Extremity Strength Assessment Bilaterally Impaired Comments Strength Comments RLE: 3+/5 LLE: 4-/5 Muscle Tone Muscle Tone WNL Yes M6 PT-IP Treatment Start: 07/14/23 14:40 Freq: NEEDED Status: Discharge Protocol: Document 07/16/23 11:44 KJ (Rec: 07/16/23 11:47 KJ [id number]) Physical Therapy Treatment Exercises Exercises Ankle Pumps,Gluteal Sets,Quad Sets,Shoulder Flexion,Elbow Flexion/Extension,Wrist ROM Education Education Provided Safety Other Treatments Other Treatment Performed Pt seen for exercise and gait training. Pt required min assist for bed mobility and supine to sit. Transfer bed to chair w/min assist. Began pre -gait training with repetitive sit to stand and standing tolerance. pt was unable to ambulate in room due to c/o weakness and fatigue. Encouraged pt to increase mobility to build strength. M7 PT-IP Assessment and Plan Start: 07/14/23 14:40 Freq: NEEDED Status: Discharge Protocol: Document 07/16/23 11:48 KJ (Rec: 07/16/23 11:49 KJ [id number]) PT Summary Assessment and Plan Potential Rehabilitation Potential Excellent Status of Condition at Evaluation Stable Summary Impairments Strength,Bed Mobility,Gait, Activity Tolerance Progress Towards Goals Progressing Toward Goals Assessment Summary Pt continues to feel fatigue and weakness. Goals Bed Mobility Goal Standby Assistance Transfer Goal Standby Assistance Gait Goal Standby Assistance Gait Distance 200' Days to Meet Goals 5 Frequency of Treatment Frequency Of Treatment Once a Day Treatment Plan Physical Therapy Treatment Plan Bed Mobility Training,Transfer Training,Gait Training, Therapeutic Exercise Recommendations To Nursing Amount of Assist Needed 1 Person Assist Discharge Recommendations PT Discharge Recommendations SNF Rehab Transportation Needs at Discharge Wheelchair/Cabulance
[2023-07-16] MEDS: SODIUM CHLORIDE 0.9% 1,000 ML 100 ML IV (09:50)
[2023-07-16 10:00] VITALS: O2SAT 96
--- NOTE | 2023-07-16 11:09 | CM.DPC ---
Addendum entered by RAI Catherine 07/16/23 12:22: ADD: Per Archana at [facility], considering pt but wanting to know plan for Seroquel as considered a chemical restraint in SNF and no transport today. SW received a call back from [facility] stating they can accept the pt today and transport around 1330. Per , pt has stabilized and has some baseline hallucinations from Parkinsons and spouse already has Neurologist appointment set up to address this further and discontinuing Seroquel today and confirms pt still stable for d/c to SNF. SW met bedside with spouse, pt was sleeping, and updated on acceptance at [facility] and transport time and spouse very appreciative of the plan and remains in agreement. SW provided the pt's Important Message from Medicare. DEVANG updated RN, renal dialysis technician, and LAP POLISHER. DEVANG faxed PASRR, signed med list, scripts, d/c summary and MD orders to [facility] to review and gave RN report number to call. Plan: Patient to d/c to [facility] today via facility van at 1330 before safe return home with spouse. RAI Catherine Original Note: DCP SNF Planning: Per MD, pt making progress and if SNF secured could likely be stable for d/c to SNF today vs tomorrow Mon. [facility] who is covering this w/e and she states she will review this morning and let SW know serge. SW called [facility] and she states the new referral did not come through from yesterday and SW faxed referral again and she confirms they have openings for today or tomorrow but transportation would be very difficult for today Sun but potentially spouse could transport pending PT recommendations. DEVANG left msg for [facility] inquiring about their review. signed pt's PASRR due to his Depression and Exempted Hospital Discharge. Plan: SW to follow closely for [facility], [facility], and [facility] review and return call to determine d/c to SNF today vs tomorrow. RAI Catherine
[2023-07-16 12:00] VITALS: BP 108/78; PULSE 93; RESP 16; TEMP 37.1; O2SAT 97
--- NOTE | 2023-07-16 12:19 | P.DS_ITS ---
History of Present Illness History of Present Illness Chief complaint: SOB and new onset Afib Narrative: 77yo M with PMH of parkinson's, prostate cancer, BPH, CVA, postural hypotension on midodrine, HLD, sleep walking on klonopin/melatonin, and low back pain who presents with worsening SOB and tachycardia. Patient states he has been SOB for about a week. He has been alot more sedentary lately due to pain in his lumbar spine, and spends most of his time at home sitting in an armchair. His BP usually runs low at 100 systolic. He denies any lightheadedness. In the ED patient found to have bilateral PE's and be in A-fib RVR. He has no prior history of A-fib. Was requiring 2L NC. HR up to 140's and cardiology initially recommended esmolol drip, however this dropped his BP so it was switched to digoxin. They recommended continuing digoxin and if not working switch to IV amio. Patient denies CP, NV, abd pain or syncope. Discharge Providers Provider Date of admission: 07/12/23 15:19 Discharge Date: 07/16/23 Primary care physician: Verito Sterling MD Consults: 07/14/23 10:48 Consult to Occupational Therapy Evaluate & Treat Comment: Physician Instructions: Evaluate and treat Consult to Physical Therapy Evaluate & Treat Comment: Physician Instructions: Evaluate and Treat Discharge provider: Rolly Vaughan MD Summary Hospital Course Discharge Diagnosis: 1. Acute hypoxic respiratory failure 2. Acute bilateral pulmonary embolism 3. New onset atrial fibrillation with RVR 4. Acute hyponatremia 5. chronic postural hypotension 6. Parkinson's disease 7. Sleep walking 8. Acute encephalopathy PROCEDURE: CT ANGIO CHEST PE PROTOCOL INDICATIONS: tachy, tachpynic, elevated D dimer >4000 TECHNIQUE: After the administration of intravenous contrast, 2 mm thick sections acquired from the pulmonary apices to the posterior costophrenic angles. 3-dimensional maximum intensity projection (MIP) coronal and sagittal reformats were then acquired through the thorax. For radiation dose reduction, the following was used: automated exposure control, adjustment of mA and/or kV according to patient size. COMPARISON: [facility], CR, XR CHEST 1V, 07/12/2023, 8:03. FINDINGS: Image quality: Diagnostic. Pulmonary arteries: Filling defects within the pulmonary artery are identified predominantly in the segmental branches bilaterally. However, thrombus is present in the distal most aspect of the right main pulmonary artery. Nodular focus is present measuring 7 mm on series 5, image 97 in the right upper lobe. This is at the confluence of pulmonary vasculature. Main pulmonary artery is prominent measuring 3.5 cm. Lungs and pleura: Mild bilateral effusions with superimposed areas of consolidation. Mediastinum: Heart size is enlarged without pericardial effusion. Borderline enlarged mediastinal lymph nodes. Thoracic aorta is normal in caliber and enhancement. Esophagus is normal in caliber, without hiatal hernia. Bones and chest wall: No suspicious bony lesions. Ribs and thoracic spine appear intact throughout. No axillary or supraclavicular adenopathy. No thyroid nodules which require sonographic follow up, per consensus guidelines. Upper Abdomen: Visualized upper abdominal solid organs appear normal in the early arterial phase of enhancement. IMPRESSION: Pulmonary emboli are present bilaterally without right heart strain. Pulmonary artery is enlarged most suggestive of pulmonary artery hypertension. Borderline enlarged mediastinal lymph nodes which may be reactive in nature. Follow-up is recommended to document resolution. Nodular focus in the right upper lobe as above at the confluence of pulmonary vascularity. This could represent a small focus of thrombus versus pulmonary nodule is difficult to discern on current exam. Given size, recommend three-month interval follow-up for further evaluation of resolved thrombus versus pulmonary nodule. The above findings were discussed with Dr. Kayla Roland on 07/12/2023 at 10:53 a.m. Dictated by: Heidi Fletcher M.D. on 07/12/2023 at 10:52 Approved by: Heidi Fletcher M.D. on 07/12/2023 at 10:59 ECHOCARDIOGRAM: The ejection fraction is estimated to be 55-60%. Diastolic function could not be accurately assessed due to atrial fibrillation. The left atrium is severely dilated. The right ventricle is mildly dilated. The right ventricular systolic function is normal. The right atrium is moderately dilated. A mitral valve clip is present. There is moderate mitral regurgitation. There is mild tricuspid regurgitation. Pulmonary artery pressures cannot be estimated because of the lack of a measurable TR jet velocity. Compared to the prior study dated 10/19/2020, no significant change. Hospital Course: Pt was admitted and started on apixaban for acute P.E. and afib with RVR. For afib rate control he was started on digoxin per cardiology receommendation. He has chronic postural hypotension and probably will not tolerate beta hilda. He was also provided supportive therapy including O2 nasal cannula. He is now managed on room air. John current dyspnea, chest pain, palps. He had some confusion and acute delirium which has cleared up. Status at Discharge Cognitive/behavioral status at discharge: oriented Functional status at discharge: uses cane/walker Overall status at discharge: patient is progressing back to baseline Time Spent with Patient Time spent: Greater than 30 minutes Exam Vital Signs (past 8 hours): - 07/16/23 08:00 07/16/23 08:21 Temperature 98 F Pulse Rate 67 Respiratory Rate 18 Blood Pressure 103/58 L Pulse Oximetry 91 Oxygen Delivery Method Room Air Oxygen Flow Rate 0 Oxygen Delivery Method Room Air Oxygen Flow Rate 0 Narrative Exam Narrative: Gen: alert, oriented, NAD Lungs: clear CV: irregular Ext: no edema Neuro: does not appear confused Objective Labs 07/16/23 04:20 07/16/23 04:20 Labs: Laboratory Results - last 24 hr 07/16/23 04:20 WBC 6.2 RBC 3.07 L Hgb 9.8 L Hct 28.0 L MCV 91.2 MCH 31.9 MCHC 35.0 RDW 14.2 Plt Count 149 L Neut % (Auto) 66.8 Lymph % (Auto) 15.3 L Calhoun % (Auto) 15.8 H Eos % (Auto) 1.9 L Baso % (Auto) 0.2 Neut # (Auto) 4100 Lymph # (Auto) 900 L Calhoun # (Auto) 1000 H Eos # (Auto) 100 Baso # (Auto) 0 Sodium 129 L Potassium 3.6 Chloride 95 L Carbon Dioxide 32 BUN 16 Creatinine 0.83 Estimated GFR > 60 BUN/Creatinine Ratio 19.3 Glucose 94 Calcium 8.2 L PFSH Medical History Impaired vision BPH (benign prostatic hyperplasia) Constipation Parkinsons disease Prostate cancer Skin cancer Social History household members: spouse Smoking Status: Never smoker alcohol intake: current Discharge Plan Discharge Plan Patient Disposition: SNF Transfer to: [facility] Consult as needed: Dental, Hearing, Mental health, Podiatry and Vision Provider Discharge Comment: Pt admitted with bilat P.E. and afib with RVR. Has hx Parkinson's and postural hypotension. Please check digoxin level on 07/21/23. Discharge orders & Medications Prescriptions: New digoxin 125 mcg (0.125 mg) Tablet 0.25 mg PO DAILY@1700 Qty: 30 0RF Eliquis 5 mg Tablet 10 mg PO BID Qty: 14 0RF Rx Instructions: take 10 mg every 12 hours through 07/19/23 then transition to 5 mg every 12 hours long-term apixaban 5 mg tablet 5 mg PO BID Qty: 60 0RF Rx Instructions: START on 07/20/23 Continued multivitamin Tablet 1 tab PO DAILY acyclovir 400 mg Tablet 400 mg PO TID PRN (Reason: outbreaks) clonazepam 0.5 mg Tablet 1.5 mg PO BEDTIME sildenafil 100 mg Tablet 100 mg PO DAILY PRN (Reason: Sexual Activity) Rx Instructions: take one tablet by mouth as needed 30 minutes to 4 hours prior to intercourse rasagiline 1 mg Tablet 1 mg PO DAILY atorvastatin 20 mg tablet 20 mg PO DAILY Rytary 48.75-195 mg capsule, extended release 2 cap PO 4XD Patient Comments: 8am/12pm/4pm/8pm midodrine 2.5 mg tablet 2.5 mg PO 3XD Changed melatonin 5 mg Tablet 5 mg PO BEDTIME Qty: 30 0RF Follow up/Referrals: Verito Sterling MD [Primary Care Provider] - Discharge Health Status Multidrug resistant organism: No MDRO Precautions: Girard Diet/Activity/Treatments Diet: Diet as Tolerated Liquid consistency: Normal/Thin Food texture: Regular Catheter comment: nguyen place 07/15/23 Oxygen: room air [facility] Rehab type: Physical therapy and Occupational therapy Visit Report/Discharge Packet Stand Alone Forms: Patient Portal/API Discharge Data Primary Care Provider: Verito Sterling
--- NOTE | 2023-07-16 12:44 | PC.NURSE ---
Report given to Margie at [facility]. IV dc'd with cath intact. pt eating lunch in bed. Pt states I'm worn out.
== END 2023-07-16 14:07 | DRG 175 ==
LOC: ED 12:59 → AC 15:55 → ED 15:57 → ICU 15:57
PROVIDERS: Admitting Provider Student in an Organized Health Care Education/Training Program; Emergency Provider Emergency Medicine; Family Provider Family Medicine; PCP Family Medicine; Referring Provider Emergency Medicine; Visit Provider Student in an Organized Health Care Education/Training Program
DX: I26.99 Other pulmonary embolism without acute cor pulmonale (principal); I50.31 Acute diastolic (congestive) heart failure; J96.01 Acute respiratory failure with hypoxia; E87.1 Hypo-osmolality and hyponatremia; G93.40 Encephalopathy, unspecified; I48.91 Unspecified atrial fibrillation; I95.1 Orthostatic hypotension; G20.A1 Parkinson's disease without dyskinesia, without mention of fluctuations; F51.3 Sleepwalking [somnambulism]; N40.0 Benign prostatic hyperplasia without lower urinary tract symptoms; Z86.73 Personal history of transient ischemic attack (TIA), and cerebral infarction without residual deficits; E78.5 Hyperlipidemia, unspecified; D69.6 Thrombocytopenia, unspecified; M54.50 Low back pain, unspecified; C61 Malignant neoplasm of prostate; G89.29 Other chronic pain
CPT/HCPCS: 36415; 51798; 71045; 71275; 80048; 80053; 81001; 83690; 83735; 83880; 84145; 84295; 84300; 84443; 84484; 85007; 85025; 85027; 85379; 85730; 87077; 87086; 87186; 87797; 93005; 93010; 93306; 96365; 96366; 96368; 96375; 97110; 97116; 97163; 97530; 99285; 99291; J1160; J1644; J1940; J3475; Q9967